=== PATIENT | female | born 1960 | race Hispanic/Latino ===

== ENCOUNTER 2020-03-09 06:37 | Inpatient (IN) | payer MEDICARE ==
[2020-03-10] MEDS ORDERED: DULOXETINE HCL 60 MG PO SCH (10:30)
[2020-03-10] MEDS: LITHIUM CARBONATE 300 MG CAP PO SCH ×2 (11:37→21:07)
[2020-03-10] MEDS: METOPROLOL SUCCINATE XL 25 MG TAB PO SCH (11:37)
[2020-03-10] MEDS: DULoxetine 30 MG CAP PO SCH (11:37)
[2020-03-10] MEDS: busPIRone 10 MG TAB PO SCH ×2 (11:37→21:07)
--- NOTE | 2020-03-10 14:18 | Consultation ---
History of Present Illness - Reason for Consult Consult date: 03/10/20 Reason for consult: MDD - History of Present Psychiatric Illness Kylah Macias is a 59y/o female patient who was admitted for SI. The patient is a/o x 3. She is calm and cooperative. She says she "has suicidal thoughts." She then says "but I wont to live." She says "I was depressed but I spoke with my mom." The patient denies hallucinations of any kind. PAST PSYCHIATRIC HISTORY Diagnoses: Bipolar Suicide attempts or Self-harm behavior: Once Prior psychiatric hospitalizations: Yes Substance Abuse history: Cocaine, thc Previous psychiatric medications tried: None reported Outpatient treatment: None reported PAST MEDICAL HISTORY: None reported Family Psychiatric History: None reported or documented SOCIAL HISTORY Marital Status: Single Living Arrangements: Lives with mom Employment Status: Unemployed Access to guns/weapons: None report Education: High school History of Abuse: Yes Legal History: None reported REVIEW OF SYSTEMS Constitutional: Negative for weight loss ENT: Negative for stridor Respiratory: Negative for cough or hemoptysis All other systems reviewed and are negative MENTAL STATUS EXAMINATION General Appearance and Behavior: Age appropriate, good hygiene, wearing appropriate clothes, calm and cooperative Cooperation: cooperative Psychomotor Behavior: Psychomotor normal Mood: depressed Affect and affective range: irritable Thought Process: logical Thought Content: None Speech: Normal rate, volume and rhythm Suicidal Ideation: Yes Homicidal Ideation: Denies HI Hallucinations: Denies Delusions: None elicited Impulse Control: Impaired Insight and Judgment: Limited insight and judgment Memory: Limited Attention: Limited Orientation: Alert, oriented Assessment and Plan (1)Major Depressive Disorder TREATMENT PLAN Patient admitted for inpatient psychiatric evaluation, medication adjustment and close monitoring The patient's behavior, mood, sleep and appetite will be closely monitored. Patient enrolled in individual and group therapeutic sessions and encouraged to attend. Patient provided with a safe and structured environment. Patient's physical health needs will be addressed by the Hospitalist. Hospitalist Consulted Labs including CBC, CMP, Lipid profile and Hemoglobin A1C levels ordered for baseline reference Started Home medications Social Assessment will be completed and the Skin Tanner will work with patient and family to ensure a suitable and safe disposition Medication adjustment will be made as clinically indicated Usual Wellness Restorationist/Preservation: - Start Trazodone 50 mg po QHS & 50 mg po QHS PRN between 10 PM & 2 AM for insomnia - Start Melatonin 5 mg po QHS to promote circadian rhythm - Start [place]-3 for brain health, reduce impulsivity, and as adjunctive tr eatment for mood disorder, continue upon discharge given overall benefits. - Start B1 prophylaxis with 200 mg po for 5 days The patient agreed on the treatment plan, understood the risk, benefit, al ternative treatment, potential consequence of no treatment, and gave informed consent. Estimated days: 5 Post hospital care: primary care provider, psychiatric provider Medications and Allergies Allergies Allergy/AdvReac Type Severity Reaction Status Date / Time No Known Drug Allergies Allergy Unknown Verified 03/09/20 22:55 Home Medications Medication Instructions Recorded Confirmed Last Taken Type Duloxetine HCl [Drizalma Sprinkle] 60 mg PO DAILY 03/09/20 03/09/20 Unknown History [place] Carbonate [Eskalith] 300 mg PO BID 03/09/20 03/09/20 Unknown History Metoprolol Xl [Metoprolol 25 mg PO QDAY 03/09/20 03/09/20 Unknown History SUCCINATE ER TAB] Paliperidone Palmitate [Invega 156 mg IM QMONTH 03/09/20 03/09/20 Unknown History [place]] busPIRone [Buspar] 10 mg PO BID 03/09/20 03/09/20 Unknown History traZODone [Desyrel] 100 mg PO QHS 03/09/20 03/09/20 Unknown History Active Meds: Active Medications Buspirone HCl (Buspar) 10 mg PO BID [facility] Last Admin: 03/10/20 11:37 Dose: 10 mg Documented by: Duloxetine HCl (Cymbalta) 60 mg PO QDAY [facility] Last Admin: 03/10/20 11:37 Dose: 60 mg Documented by: [place] Carbonate (Eskalith) 300 mg PO BID [facility] Last Admin: 03/10/20 11:37 Dose: 300 mg Documented by: Metoprolol Succinate (Metoprolol Xl) 25 mg PO QDAY [facility] Last Admin: 03/10/20 11:37 Dose: 25 mg Documented by: Nicotine (Habitrol) 21 mg TD QDAY [facility] Trazodone HCl (Desyrel) 100 mg PO QHS [facility] Mental Status Exam - Vital signs Last Vital Signs Temp 98.1 F 03/10/20 08:19 Pulse 81 03/10/20 11:37 Resp 18 03/10/20 08:19 BP 104/72 03/10/20 11:37 Pulse Ox 94 03/10/20 08:19 Results All other labs normal.
[2020-03-10] MEDS: NICOTINE 21 MG/24 HR PATCH TD SCH ×2 (15:55→15:59)
--- NOTE | 2020-03-10 17:25 | History and Physical Report ---
History of Present Illness Date of examination: 03/10/20 Date of admission: 03/09/20 09:53 Chief complaint: Patient states she feels depressed. Better now. History of present illness: 59-year-old female with a history of bipolar disorder, hypertension presents with depression suicidal thoughts after brother's illness. Patient stated initially she felt like she did not want to live anymore. Does not feel that way now. Patient denies any chest pain fever chills no nausea vomiting no cough no shortness of breath. Patient states she is in her normal state of health as far as her body. Has been sad in her mind. No recent attempts of suicide. Past History Past Medical History: hypertension. denies: anemia, CAD, cancer, ESRD, GERD, hepatitis, hyperthyroidism, migraines, pulmonary embolism, seizures, sarcoidosis Past Surgical History: No surgical history Social history: single, lives with family, other (Cocaine marijuana) Family history: no significant family history, hypertension Medications and Allergies Allergies Allergy/AdvReac Type Severity Reaction Status Date / Time No Known Drug Allergies Allergy Unknown Verified 03/09/20 22:55 Home Medications Medication Instructions Recorded Confirmed Last Taken Type Duloxetine HCl [Drizalma Sprinkle] 60 mg PO DAILY 03/09/20 03/09/20 Unknown History [place] Carbonate [Eskalith] 300 mg PO BID 03/09/20 03/09/20 Unknown History Metoprolol Xl [Metoprolol 25 mg PO QDAY 03/09/20 03/09/20 Unknown History SUCCINATE ER TAB] Paliperidone Palmitate [Invega 156 mg IM QMONTH 03/09/20 03/09/20 Unknown History [place]] busPIRone [Buspar] 10 mg PO BID 03/09/20 03/09/20 Unknown History traZODone [Desyrel] 100 mg PO QHS 03/09/20 03/09/20 Unknown History Active Meds: Active Medications Buspirone HCl (Buspar) 10 mg PO BID [facility] Last Admin: 03/10/20 11:37 Dose: 10 mg Documented by: Duloxetine HCl (Cymbalta) 60 mg PO QDAY [facility] Last Admin: 03/10/20 11:37 Dose: 60 mg Documented by: [place] Carbonate (Eskalith) 300 mg PO BID [facility] Last Admin: 03/10/20 11:37 Dose: 300 mg Documented by: Metoprolol Succinate (Metoprolol Xl) 25 mg PO QDAY [facility] Last Admin: 03/10/20 11:37 Dose: 25 mg Documented by: Nicotine (Habitrol) 21 mg TD QDAY [facility] Last Admin: 03/10/20 15:55 Dose: Not Given Documented by: Trazodone HCl (Desyrel) 100 mg PO QHS [facility] Review of Systems Constitutional: no fever, no anorexia, no lethargy, no poor appetite, no daytime sleepiness Ears, nose, mouth and throat: no tinnitis, no decreased hearing, no nasal discharge, no bleeding gums, no mouth pain, no sore throat, no swelling in mouth, no neck fullness/pressure Cardiovascular: no chest pain, no orthopnea, no rapid/irregular heart beat, no shortness of breath, no dyspnea on exertion, no claudication, no other Respiratory: no excessive sputum, no dyspnea on exertion, no pain on inspiration, no respiratory infections Gastrointestinal: no abdominal pain, no nausea, no diarrhea, no hematemesis, no belching, no excessive gas, no lactose intolerance, no other Genitourinary Female: no flank pain, no urinary frequency, no post void dribbling, no vaginal discharge Menstruation: no premenarcheal, no ammenorrhea on , no period spotting, no menses 8 or > days Musculoskeletal: no neck stiffness, no shooting arm pain, no low back pain, no muscle weakness, no limitation of motion, no loss of height, no arthritis Integumentary: no rash, no redness, no wounds, no lesions, no color changes Neurological: no weakness, no numbness, no seizures, no lack of coordination, no gait dysfunction, no double vision Psychiatric: suicidal ideation, depression, difficulties concentrating, sadness/tearfullness, no memory loss, no sleep disturbances, no disorientation, no hallucinations, no anxiety attacks Endocrine: no polyphagia, no low blood sugars, no recent glucocorticoid use Hematologic/Lymphatic: no easy bruising Exam - Constitutional Vitals: Temp Pulse Resp BP Pulse Ox 98.1 F 81 18 104/72 94 03/10/20 08:19 03/10/20 11:37 03/10/20 08:19 03/10/20 11:37 03/10/20 08:19 General appearance: Present: no acute distress, well-nourished - EENT Eyes: Present: PERRL ENT: hearing intact, clear oral mucosa - Neck Neck: Present: supple, normal ROM - Respiratory Respiratory effort: normal Respiratory: bilateral: CTA - Cardiovascular Heart Sounds: Present: S1 & S2. Absent: rub, click - Extremities Extremities: pulses symmetrical, No edema Peripheral Pulses: within normal limits - Abdominal General gastrointestinal: Present: soft, non-tender, non-distended, normal bowel sounds Female genitourinary: Present: normal - Integumentary Integumentary: Present: clear, warm, dry - Musculoskeletal Musculoskeletal: gait normal, strength equal bilaterally - Psychiatric Psychiatric: appropriate mood/affect, intact judgment & insight - Neurologic Neurologic: CNII-XII intact, moves all extremities Results [place]/IV: Voiding Method Toilet Assessment and Plan Advance Directives: No Plan of care discussed with patient/family: Yes - Patient Problems (1) Hypertension Current Visit: Yes Status: Acute Plan to address problem: Patient blood pressure appears to be optimally controlled without metoprolol now in fact it is on the low side 104/70. Will hold metoprolol at this time may reinitiate tomorrow if necessary. (2) Bipolar 1 disorder Current Visit: Yes Status: Acute Plan to address problem: Patient appears to have depression as well. Patient restarted back on antidepressants and medications for bipolar.
[2020-03-10] MEDS: traZODone 100 MG TAB PO SCH (21:07)
[2020-03-11 06:10] LABS: Basophils # (Auto) 0.1 K/mm3 (0.0-0.1); Basophils % (Auto) 1.2 % (0.0-1.8); Eosinophils # (Auto) 0.3 K/mm3 (0.0-0.4); Eosinophils % (Auto) 3.6 % (0.0-4.3); Hematocrit 41.3 % (30.3-42.9); Hemoglobin 13.7 gm/dl (10.1-14.3); Lymphocytes # (Auto) 2.1 K/mm3 (1.2-5.4); Lymphocytes % (Auto) 21.7 % (13.4-35.0); Mean Corpuscular HGB Conc 33 % (30-34); Mean Corpuscular Volume 89 fl (79-97); Monocytes # (Auto) 0.8 K/mm3 (0.0-0.8); Monocytes % (Auto) 8.3 % (0.0-7.3); Platelet Count 271 K/mm3 (140-440); Red Blood Count 4.65 M/mm3 (3.65-5.03)
[2020-03-11 06:31] LABS: Alanine Aminotransferase 16 units/L (7-56); Albumin 3.4 g/dL (3.9-5); Blood Urea Nitrogen 9 mg/dL (7-17); Chol/HDL Ratio 3.71 %; HDL Cholesterol 39 mg/dL (40-59); Hemolysis Index 6; LDL Cholesterol,Direct 99 mg/dL (50-130)
[2020-03-11 06:34] LABS: BUN/Creatinine Ratio 15
--- NOTE | 2020-03-11 07:55 | Progress Note ---
Subjective Date of service: 03/11/20 Principal diagnosis: Majoar Depressive Disorder Subjective Comment: During my interview with the patient today, she is sitting in the dayroom. She says she feels "slightly depressed, but better." The patient says she didn't sleep well because the water in her sink is running and keeping her up. She denies SI/HI, but has passive thoughts of dying. The patient says "I have thoughts of and dying but I don't think I will act on it." She says she hears "a voice telling her, "God, bless your heart." She says her father used to say that to her. Reason for continued inpatient treatment: The patient verbalizes depression, passive thoughts of dying and auditory hallucinations. REVIEW OF SYSTEMS Constitutional: Negative for weight loss ENT: Negative for stridor Respiratory: Negative for cough or hemoptysis All other systems reviewed and are negative MENTAL STATUS EXAMINATION General Appearance and Behavior: Age appropriate, good hygiene, wearing appropriate clothes, calm and cooperative Cooperation: cooperative Psychomotor Behavior: Psychomotor normal Mood: depressed, but better Affect and affective range: restricted Thought Process: logical Thought Content: None Speech: Normal rate, volume and rhythm Suicidal Ideation: Yes Homicidal Ideation: Denies HI Hallucinations: Auditory Delusions: None elicited Impulse Control: Impaired Insight and Judgment: Limited insight and judgment Memory: Limited Attention: Limited Orientation: Alert, oriented Assessment and Plan (1)Major Depressive Disorder TREATMENT PLAN Patient admitted for inpatient psychiatric evaluation, medication adjustment and close monitoring The patient's behavior, mood, sleep and appetite will be closely monitored. Patient enrolled in individual and group therapeutic sessions and encouraged to attend. Patient provided with a safe and structured environment. Patient's physical health needs will be addressed by the Hospitalist. Hospitalist Consulted Labs including CBC, CMP, Lipid profile and Hemoglobin A1C levels ordered for baseline reference Start Risperidone 0.25mg po BID Social Assessment will be completed and the Patternmaker Pressure Cast will work with patient and family to ensure a suitable and safe disposition Medication adjustment will be made as clinically indicated Usual Wellness Episcopal/Preservation: - Start Trazodone 50 mg po QHS & 50 mg po QHS PRN between 10 PM & 2 AM for insomnia - Start Melatonin 5 mg po QHS to promote circadian rhythm - Start [place]-3 for brain health, reduce impulsivity, and as adjunctive treatment for mood disorder, continue upon discharge given overall benefits. - Start B1 prophylaxis with 200 mg po for 5 days The patient agreed on the treatment plan, understood the risk, benefit, alternative treatment, potential consequence of no treatment, and gave informed consent. Estimated days: 4 Post hospital care: primary care provider, psychiatric provider Medications and Allergies Allergies Allergy/AdvReac Type Severity Reaction Status Date / Time No Known Drug Allergies Allergy Unknown Verified 03/09/20 22:55 Home Medications Medication Instructions Recorded Confirmed Last Taken Type Duloxetine HCl [Drizalma Sprinkle] 60 mg PO DAILY 03/09/20 03/09/20 Unknown History [place] Carbonate [Eskalith] 300 mg PO BID 03/09/20 03/09/20 Unknown History Metoprolol Xl [Metoprolol 25 mg PO QDAY 03/09/20 03/09/20 Unknown History SUCCINATE ER TAB] Paliperidone Palmitate [Invega 156 mg IM QMONTH 03/09/20 03/09/20 Unknown History [place]] busPIRone [Buspar] 10 mg PO BID 03/09/20 03/09/20 Unknown History traZODone [Desyrel] 100 mg PO QHS 03/09/20 03/09/20 Unknown History Active Meds: Active Medications Buspirone HCl (Buspar) 10 mg PO BID [facility] Last Admin: 03/10/20 21:07 Dose: 10 mg Documented by: Duloxetine HCl (Cymbalta) 60 mg PO QDAY [facility] Last Admin: 03/10/20 11:37 Dose: 60 mg Documented by: [place] Carbonate (Eskalith) 300 mg PO BID [facility] Last Admin: 03/10/20 21:07 Dose: 300 mg Documented by: Metoprolol Succinate (Metoprolol Xl) 25 mg PO QDAY [facility] Last Admin: 03/10/20 11:37 Dose: 25 mg Documented by: Nicotine (Habitrol) 21 mg TD QDAY [facility] Last Admin: 03/10/20 15:55 Dose: Not Given Documented by: Trazodone HCl (Desyrel) 100 mg PO QHS [facility] Last Admin: 03/10/20 21:07 Dose: 100 mg Documented by: Results - Results Labs/Vitals: Laboratory Last Values WBC 9.6 K/mm3 (4.5-11.0) 03/11/20 05:15 RBC 4.65 M/mm3 (3.65-5.03) 03/11/20 05:15 Hgb 13.7 gm/dl (10.1-14.3) 03/11/20 05:15 Hct 41.3 % (30.3-42.9) 03/11/20 05:15 MCV 89 fl (79-97) 03/11/20 05:15 MCH 29 pg (28-32) 03/11/20 05:15 MCHC 33 % (30-34) 03/11/20 05:15 RDW 14.0 % (13.2-15.2) 03/11/20 05:15 Plt Count 271 K/mm3 (140-440) 03/11/20 05:15 Lymph % (Auto) 21.7 % (13.4-35.0) 03/11/20 05:15 [place] % (Auto) 8.3 % (0.0-7.3) H 03/11/20 05:15 Eos % (Auto) 3.6 % (0.0-4.3) 03/11/20 05:15 Baso % (Auto) 1.2 % (0.0-1.8) 03/11/20 05:15 Lymph # (Auto) 2.1 K/mm3 (1.2-5.4) 03/11/20 05:15 [place] # (Auto) 0.8 K/mm3 (0.0-0.8) 03/11/20 05:15 Eos # (Auto) 0.3 K/mm3 (0.0-0.4) 03/11/20 05:15 Baso # (Auto) 0.1 K/mm3 (0.0-0.1) 03/11/20 05:15 Seg Neutrophils % 65.2 % (40.0-70.0) 03/11/20 05:15 Seg Neutrophils # 6.2 K/mm3 (1.8-7.7) 03/11/20 05:15 Sodium 136 mmol/L (137-145) L 03/11/20 05:15 Potassium 4.0 mmol/L (3.6-5.0) 03/11/20 05:15 Chloride 100.9 mmol/L (98-107) 03/11/20 05:15 Carbon Dioxide 27 mmol/L (22-30) 03/11/20 05:15 Anion Gap 12 mmol/L 03/11/20 05:15 BUN 9 mg/dL (7-17) 03/11/20 05:15 Creatinine 0.6 mg/dL (0.6-1.2) 03/11/20 05:15 Estimated GFR > 60 ml/min 03/11/20 05:15 BUN/Creatinine Ratio 15 % 03/11/20 05:15 Glucose 117 mg/dL (65-100) H 03/11/20 05:15 Hemoglobin A1c 6.2 % (4-6) H 03/11/20 05:15 Calcium 9.0 mg/dL (8.4-10.2) 03/11/20 05:15 Total Bilirubin 0.50 mg/dL (0.1-1.2) 03/11/20 05:15 AST 13 units/L (5-40) 03/11/20 05:15 ALT 16 units/L (7-56) 03/11/20 05:15 Alkaline Phosphatase 91 units/L (35-129) 03/11/20 05:15 Total Protein 6.7 g/dL (6.3-8.2) 03/11/20 05:15 Albumin 3.4 g/dL (3.9-5) L 03/11/20 05:15 Albumin/Globulin Ratio 1.0 % 03/11/20 05:15 Triglycerides 75 mg/dL (2-149) 03/11/20 05:15 Cholesterol 145 mg/dL (50-199) 03/11/20 05:15 LDL Cholesterol Direct 99 mg/dL (50-130) 03/11/20 05:15 HDL Cholesterol 39 mg/dL (40-59) L 03/11/20 05:15 Cholesterol/HDL Ratio 3.71 % 03/11/20 05:15 TSH 2.780 mlU/mL (0.270-4.200) 03/11/20 05:15 Last Vital Signs Temp 98.1 F 03/10/20 08:19 Pulse 81 03/10/20 11:37 Resp 18 03/10/20 08:19 BP 104/72 03/10/20 11:37 Pulse Ox 94 03/10/20 08:19
[2020-03-11] MEDS: DULoxetine 30 MG CAP PO SCH (09:12)
[2020-03-11] MEDS: risperiDONE 0.25 MG TAB PO SCH ×2 (09:13→21:31)
[2020-03-11] MEDS: LITHIUM CARBONATE 300 MG CAP PO SCH ×2 (09:13→21:31)
[2020-03-11] MEDS: METOPROLOL SUCCINATE XL 25 MG TAB PO SCH (09:13)
[2020-03-11] MEDS: busPIRone 10 MG TAB PO SCH ×2 (09:13→21:31)
[2020-03-11] MEDS: NICOTINE 21 MG/24 HR PATCH TD SCH (09:14)
[2020-03-11] MEDS: traZODone 100 MG TAB PO SCH (21:31)
--- NOTE | 2020-03-12 08:01 | Progress Note ---
Subjective Date of service: 03/12/20 Principal diagnosis: Majoar Depressive Disorder Subjective Comment: During my interview with the patient today, she is sitting in the dayroom. She says she feels "slightly depressed." The patient says she slept well and her appetite is good. She denies SI/HI, but states she had thoughts of dying yesterday. The patient staters it bothers her that her dad and he was trying to get everybody together. She says she hears "a voice telling her, "God, bless your heart." She says it sounds like her father. Reason for continued inpatient treatment: The patient verbalizes depression, passive thoughts of dying and auditory hallucinations. REVIEW OF SYSTEMS Constitutional: Negative for weight loss ENT: Negative for stridor Respiratory: Negative for cough or hemoptysis All other systems reviewed and are negative MENTAL STATUS EXAMINATION General Appearance and Behavior: Age appropriate, good hygiene, wearing appropriate clothes, calm and cooperative Cooperation: cooperative Psychomotor Behavior: Psychomotor normal Mood: depressed, but better Affect and affective range: restricted Thought Process: logical Thought Content: None Speech: Normal rate, volume and rhythm Suicidal Ideation: Yes Homicidal Ideation: Denies HI Hallucinations: Auditory Delusions: None elicited Impulse Control: Impaired Insight and Judgment: Limited insight and judgment Memory: Limited Attention: Limited Orientation: Alert, oriented Assessment and Plan (1)Major Depressive Disorder TREATMENT PLAN Patient admitted for inpatient psychiatric evaluation, medication adjustment and close monitoring The patient's behavior, mood, sleep and appetite will be closely monitored. Patient enrolled in individual and group therapeutic sessions and encouraged to attend. Patient provided with a safe and structured environment. Patient's physical health needs will be addressed by the Hospitalist. Hospitalist Consulted Labs including CBC, CMP, Lipid profile and Hemoglobin A1C levels ordered for baseline reference Increased Risperidone 0.5mg po BID Social Assessment will be completed and the [employer] [place] Radio Technician will work with patient and family to ensure a suitable and safe disposition Medication adjustment will be made as clinically indicated Usual Wellness Confucianism/Preservation: - Start Trazodone 50 mg po QHS & 50 mg po QHS PRN between 10 PM & 2 AM for insomnia - Start Melatonin 5 mg po QHS to promote circadian rhythm - Start [place]-3 for brain health, reduce impulsivity, and as adjunctive treatment for mood disorder, continue upon discharge given overall benefits. - Start B1 prophylaxis with 200 mg po for 5 days The patient agreed on the treatment plan, understood the risk, benefit, alternative treatment, potential consequence of no treatment, and gave informed consent. Estimated days: 4 Post hospital care: primary care provider, psychiatric provider Medications and Allergies Allergies Allergy/AdvReac Type Severity Reaction Status Date / Time No Known Drug Allergies Allergy Unknown Verified 03/09/20 22:55 Home Medications Medication Instructions Recorded Confirmed Last Taken Type Duloxetine HCl [Drizalma Sprinkle] 60 mg PO DAILY 03/09/20 03/09/20 Unknown History [place] Carbonate [Eskalith] 300 mg PO BID 03/09/20 03/09/20 Unknown History Metoprolol Xl [Metoprolol 25 mg PO QDAY 03/09/20 03/09/20 Unknown History SUCCINATE ER TAB] Paliperidone Palmitate [Invega 156 mg IM QMONTH 03/09/20 03/09/20 Unknown History [place]] busPIRone [Buspar] 10 mg PO BID 03/09/20 03/09/20 Unknown History traZODone [Desyrel] 100 mg PO QHS 03/09/20 03/09/20 Unknown History Active Meds: Active Medications Buspirone HCl (Buspar) 10 mg PO BID [facility] Last Admin: 03/11/20 21:31 Dose: 10 mg Documented by: Duloxetine HCl (Cymbalta) 60 mg PO QDAY [facility] Last Admin: 03/11/20 09:12 Dose: 60 mg Documented by: [place] Carbonate (Eskalith) 300 mg PO BID [facility] Last Admin: 03/11/20 21:31 Dose: 300 mg Documented by: Metoprolol Succinate (Metoprolol Xl) 25 mg PO QDAY [facility] Last Admin: 03/11/20 09:13 Dose: 25 mg Documented by: Nicotine (Habitrol) 21 mg TD QDAY [facility] Last Admin: 03/11/20 09:14 Dose: Not Given Documented by: Risperidone (Risperdal) 0.25 mg PO BID [facility] Last Admin: 03/11/20 21:31 Dose: 0.25 mg Documented by: Trazodone HCl (Desyrel) 100 mg PO QHS [facility] Last Admin: 03/11/20 21:31 Dose: 100 mg Documented by: Results - Results Labs/Vitals: Laboratory Last Values WBC 9.6 K/mm3 (4.5-11.0) 03/11/20 05:15 RBC 4.65 M/mm3 (3.65-5.03) 03/11/20 05:15 Hgb 13.7 gm/dl (10.1-14.3) 03/11/20 05:15 Hct 41.3 % (30.3-42.9) 03/11/20 05:15 MCV 89 fl (79-97) 03/11/20 05:15 MCH 29 pg (28-32) 03/11/20 05:15 MCHC 33 % (30-34) 03/11/20 05:15 RDW 14.0 % (13.2-15.2) 03/11/20 05:15 Plt Count 271 K/mm3 (140-440) 03/11/20 05:15 Lymph % (Auto) 21.7 % (13.4-35.0) 03/11/20 05:15 [place] % (Auto) 8.3 % (0.0-7.3) H 03/11/20 05:15 Eos % (Auto) 3.6 % (0.0-4.3) 03/11/20 05:15 Baso % (Auto) 1.2 % (0.0-1.8) 03/11/20 05:15 Lymph # (Auto) 2.1 K/mm3 (1.2-5.4) 03/11/20 05:15 [place] # (Auto) 0.8 K/mm3 (0.0-0.8) 03/11/20 05:15 Eos # (Auto) 0.3 K/mm3 (0.0-0.4) 03/11/20 05:15 Baso # (Auto) 0.1 K/mm3 (0.0-0.1) 03/11/20 05:15 Seg Neutrophils % 65.2 % (40.0-70.0) 03/11/20 05:15 Seg Neutrophils # 6.2 K/mm3 (1.8-7.7) 03/11/20 05:15 Sodium 136 mmol/L (137-145) L 03/11/20 05:15 Potassium 4.0 mmol/L (3.6-5.0) 03/11/20 05:15 Chloride 100.9 mmol/L (98-107) 03/11/20 05:15 Carbon Dioxide 27 mmol/L (22-30) 03/11/20 05:15 Anion Gap 12 mmol/L 03/11/20 05:15 BUN 9 mg/dL (7-17) 03/11/20 05:15 Creatinine 0.6 mg/dL (0.6-1.2) 03/11/20 05:15 Estimated GFR > 60 ml/min 03/11/20 05:15 BUN/Creatinine Ratio 15 % 03/11/20 05:15 Glucose 117 mg/dL (65-100) H 03/11/20 05:15 Hemoglobin A1c 6.2 % (4-6) H 03/11/20 05:15 Calcium 9.0 mg/dL (8.4-10.2) 03/11/20 05:15 Total Bilirubin 0.50 mg/dL (0.1-1.2) 03/11/20 05:15 AST 13 units/L (5-40) 03/11/20 05:15 ALT 16 units/L (7-56) 03/11/20 05:15 Alkaline Phosphatase 91 units/L (35-129) 03/11/20 05:15 Total Protein 6.7 g/dL (6.3-8.2) 03/11/20 05:15 Albumin 3.4 g/dL (3.9-5) L 03/11/20 05:15 Albumin/Globulin Ratio 1.0 % 03/11/20 05:15 Triglycerides 75 mg/dL (2-149) 03/11/20 05:15 Cholesterol 145 mg/dL (50-199) 03/11/20 05:15 LDL Cholesterol Direct 99 mg/dL (50-130) 03/11/20 05:15 HDL Cholesterol 39 mg/dL (40-59) L 03/11/20 05:15 Cholesterol/HDL Ratio 3.71 % 03/11/20 05:15 TSH 2.780 mlU/mL (0.270-4.200) 03/11/20 05:15 Last Vital Signs Temp 98.0 F 03/12/20 07:09 Pulse 63 03/12/20 07:09 Resp 16 03/12/20 07:09 BP 140/55 03/12/20 07:09 Pulse Ox 95 03/12/20 07:09
[2020-03-12] MEDS: DULoxetine 30 MG CAP PO SCH (09:58)
[2020-03-12] MEDS: LITHIUM CARBONATE 300 MG CAP PO SCH ×2 (09:58→21:33)
[2020-03-12] MEDS: busPIRone 10 MG TAB PO SCH ×2 (09:58→21:34)
[2020-03-12] MEDS: METOPROLOL SUCCINATE XL 25 MG TAB PO SCH (09:59)
[2020-03-12] MEDS: risperiDONE 0.25 MG TAB PO SCH ×2 (09:59→21:33)
[2020-03-12] MEDS: NICOTINE 21 MG/24 HR PATCH TD SCH ×2 (10:00→10:07)
[2020-03-12] MEDS: traZODone 100 MG TAB PO SCH (21:34)
--- NOTE | 2020-03-13 07:59 | Progress Note ---
Subjective Date of service: 03/13/20 Principal diagnosis: Majoar Depressive Disorder Subjective Comment: During my interview with the patient today, she is walking around. She says she's "doing much better." She denies SI/HI and feels like she's improved. She says she hears "a voice telling her, "God, bless your heart." She says it sounds like her father. Reason for continued inpatient treatment: The patient has improved significantly, but has auditory hallucinations of her father's voice. Will continue to treat and plan for a safe discharge. REVIEW OF SYSTEMS Constitutional: Negative for weight loss ENT: Negative for stridor Respiratory: Negative for cough or hemoptysis All other systems reviewed and are negative MENTAL STATUS EXAMINATION General Appearance and Behavior: Age appropriate, good hygiene, wearing appropriate clothes, calm and cooperative Cooperation: cooperative Psychomotor Behavior: Psychomotor normal Mood: "much better" Affect and affective range: Congruent with stated mood Thought Process: logical Thought Content: None Speech: Normal rate, volume and rhythm Suicidal Ideation: Denies Homicidal Ideation: Denies HI Hallucinations: Auditory Delusions: None elicited Impulse Control: Impaired Insight and Judgment: Limited insight and judgment Memory: Limited Attention: Limited Orientation: Alert, oriented Assessment and Plan (1)Major Depressive Disorder TREATMENT PLAN Patient admitted for inpatient psychiatric evaluation, medication adjustment and close monitoring The patient's behavior, mood, sleep and appetite will be closely monitored. Patient enrolled in individual and group therapeutic sessions and encouraged to attend. Patient provided with a safe and structured environment. Patient's physical health needs will be addressed by the Hospitalist. Hospitalist Consulted Labs including CBC, CMP, Lipid profile and Hemoglobin A1C levels ordered for baseline reference Increased Risperidone 0.5mg po BID yesterday No changes made today Social Assessment will be completed and the Backwinder will work with patient and family to ensure a suitable and safe disposition Medication adjustment will be made as clinically indicated Usual Wellness Tenriism/Preservation: - Start Trazodone 50 mg po QHS & 50 mg po QHS PRN between 10 PM & 2 AM for insomnia - Start Melatonin 5 mg po QHS to promote circadian rhythm - Start [place]-3 for brain health, reduce impulsivity, and as adjunctive treatment for mood disorder, continue upon discharge given overall benefits. - Start B1 prophylaxis with 200 mg po for 5 days The patient agreed on the treatment plan, understood the risk, benefit, alternative treatment, potential consequence of no treatment, and gave informed consent. Estimated days: 4 Post hospital care: primary care provider, psychiatric provider Medications and Allergies Allergies Allergy/AdvReac Type Severity Reaction Status Date / Time No Known Drug Allergies Allergy Unknown Verified 03/09/20 22:55 Home Medications Medication Instructions Recorded Confirmed Last Taken Type Duloxetine HCl [Drizalma Sprinkle] 60 mg PO DAILY 03/09/20 03/09/20 Unknown History [place] Carbonate [Eskalith] 300 mg PO BID 03/09/20 03/09/20 Unknown History Metoprolol Xl [Metoprolol 25 mg PO QDAY 03/09/20 03/09/20 Unknown History SUCCINATE ER TAB] Paliperidone Palmitate [Invega 156 mg IM QMONTH 03/09/20 03/09/20 Unknown History Sustenna] busPIRone [Buspar] 10 mg PO BID 03/09/20 03/09/20 Unknown History traZODone [Desyrel] 100 mg PO QHS 03/09/20 03/09/20 Unknown History Active Meds: Active Medications Buspirone HCl (Buspar) 10 mg PO BID [facility] Last Admin: 03/12/20 21:34 Dose: 10 mg Documented by: Duloxetine HCl (Cymbalta) 60 mg PO QDAY [facility] Last Admin: 03/12/20 09:58 Dose: 60 mg Documented by: [place] Carbonate (Eskalith) 300 mg PO BID [facility] Last Admin: 03/12/20 21:33 Dose: 300 mg Documented by: Metoprolol Succinate (Metoprolol Xl) 25 mg PO QDAY [facility] Last Admin: 03/12/20 09:59 Dose: 25 mg Documented by: Risperidone (Risperdal) 0.5 mg PO BID [facility] Last Admin: 03/12/20 21:33 Dose: 0.5 mg Documented by: Trazodone HCl (Desyrel) 100 mg PO QHS [facility] Last Admin: 03/12/20 21:34 Dose: 100 mg Documented by: Results - Results Labs/Vitals: Laboratory Last Values WBC 9.6 K/mm3 (4.5-11.0) 03/11/20 05:15 RBC 4.65 M/mm3 (3.65-5.03) 03/11/20 05:15 Hgb 13.7 gm/dl (10.1-14.3) 03/11/20 05:15 Hct 41.3 % (30.3-42.9) 03/11/20 05:15 MCV 89 fl (79-97) 03/11/20 05:15 MCH 29 pg (28-32) 03/11/20 05:15 MCHC 33 % (30-34) 03/11/20 05:15 RDW 14.0 % (13.2-15.2) 03/11/20 05:15 Plt Count 271 K/mm3 (140-440) 03/11/20 05:15 Lymph % (Auto) 21.7 % (13.4-35.0) 03/11/20 05:15 [place] % (Auto) 8.3 % (0.0-7.3) H 03/11/20 05:15 Eos % (Auto) 3.6 % (0.0-4.3) 03/11/20 05:15 Baso % (Auto) 1.2 % (0.0-1.8) 03/11/20 05:15 Lymph # (Auto) 2.1 K/mm3 (1.2-5.4) 03/11/20 05:15 [place] # (Auto) 0.8 K/mm3 (0.0-0.8) 03/11/20 05:15 Eos # (Auto) 0.3 K/mm3 (0.0-0.4) 03/11/20 05:15 Baso # (Auto) 0.1 K/mm3 (0.0-0.1) 03/11/20 05:15 Seg Neutrophils % 65.2 % (40.0-70.0) 03/11/20 05:15 Seg Neutrophils # 6.2 K/mm3 (1.8-7.7) 03/11/20 05:15 Sodium 136 mmol/L (137-145) L 03/11/20 05:15 Potassium 4.0 mmol/L (3.6-5.0) 03/11/20 05:15 Chloride 100.9 mmol/L (98-107) 03/11/20 05:15 Carbon Dioxide 27 mmol/L (22-30) 03/11/20 05:15 Anion Gap 12 mmol/L 03/11/20 05:15 BUN 9 mg/dL (7-17) 03/11/20 05:15 Creatinine 0.6 mg/dL (0.6-1.2) 03/11/20 05:15 Estimated GFR > 60 ml/min 03/11/20 05:15 BUN/Creatinine Ratio 15 % 03/11/20 05:15 Glucose 117 mg/dL (65-100) H 03/11/20 05:15 Hemoglobin A1c 6.2 % (4-6) H 03/11/20 05:15 Calcium 9.0 mg/dL (8.4-10.2) 03/11/20 05:15 Total Bilirubin 0.50 mg/dL (0.1-1.2) 03/11/20 05:15 AST 13 units/L (5-40) 03/11/20 05:15 ALT 16 units/L (7-56) 03/11/20 05:15 Alkaline Phosphatase 91 units/L (35-129) 03/11/20 05:15 Total Protein 6.7 g/dL (6.3-8.2) 03/11/20 05:15 Albumin 3.4 g/dL (3.9-5) L 03/11/20 05:15 Albumin/Globulin Ratio 1.0 % 03/11/20 05:15 Triglycerides 75 mg/dL (2-149) 03/11/20 05:15 Cholesterol 145 mg/dL (50-199) 03/11/20 05:15 LDL Cholesterol Direct 99 mg/dL (50-130) 03/11/20 05:15 HDL Cholesterol 39 mg/dL (40-59) L 03/11/20 05:15 Cholesterol/HDL Ratio 3.71 % 03/11/20 05:15 TSH 2.780 mlU/mL (0.270-4.200) 03/11/20 05:15 Last Vital Signs Temp 98.1 F 03/12/20 20:00 Pulse 54 L 03/12/20 20:00 Resp 16 03/12/20 20:00 BP 130/62 03/12/20 20:00 Pulse Ox 99 03/12/20 20:00
[2020-03-13] MEDS: busPIRone 10 MG TAB PO SCH ×2 (10:20→21:15)
[2020-03-13] MEDS: METOPROLOL SUCCINATE XL 25 MG TAB PO SCH (10:20)
[2020-03-13] MEDS: risperiDONE 0.25 MG TAB PO SCH ×2 (10:20→21:15)
[2020-03-13] MEDS: DULoxetine 30 MG CAP PO SCH (10:23)
[2020-03-13] MEDS: LITHIUM CARBONATE 300 MG CAP PO SCH ×2 (10:24→21:14)
[2020-03-13] MEDS: traZODone 100 MG TAB PO SCH (21:15)
--- NOTE | 2020-03-14 07:07 | Progress Note ---
Subjective Date of service: 03/14/20 Principal diagnosis: Majoar Depressive Disorder Subjective Comment: During my interview with the patient today, she is walking around. She says she's "doing much better." She denies SI/HI and feels like she's improved. She says she hears "a voice telling her, "God, bless your heart." She says it sounds like her father. Reason for continued inpatient treatment: The patient has improved significantly, but has auditory hallucinations of her father's voice. Will continue to treat and plan for a safe discharge. REVIEW OF SYSTEMS Constitutional: Negative for weight loss ENT: Negative for stridor Respiratory: Negative for cough or hemoptysis All other systems reviewed and are negative MENTAL STATUS EXAMINATION General Appearance and Behavior: Age appropriate, good hygiene, wearing appropriate clothes, calm and cooperative Cooperation: cooperative Psychomotor Behavior: Psychomotor normal Mood: "much better" Affect and affective range: Congruent with stated mood Thought Process: logical Thought Content: None Speech: Normal rate, volume and rhythm Suicidal Ideation: Denies Homicidal Ideation: Denies HI Hallucinations: Auditory Delusions: None elicited Impulse Control: Impaired Insight and Judgment: Limited insight and judgment Memory: Limited Attention: Limited Orientation: Alert, oriented Assessment and Plan (1)Major Depressive Disorder TREATMENT PLAN Patient admitted for inpatient psychiatric evaluation, medication adjustment and close monitoring The patient's behavior, mood, sleep and appetite will be closely monitored. Patient enrolled in individual and group therapeutic sessions and encouraged to attend. Patient provided with a safe and structured environment. Patient's physical health needs will be addressed by the Hospitalist. Hospitalist Consulted Labs including CBC, CMP, Lipid profile and Hemoglobin A1C levels ordered for baseline reference Increased Risperidone 0.5mg po BID yesterday No changes made today Social Assessment will be completed and the Police [employer] Commander will work with patient and family to ensure a suitable and safe disposition Medication adjustment will be made as clinically indicated Usual Wellness Mormon/Preservation: - Start Trazodone 50 mg po QHS & 50 mg po QHS PRN between 10 PM & 2 AM for insomnia - Start Melatonin 5 mg po QHS to promote circadian rhythm - Start [place]-3 for brain health, reduce impulsivity, and as adjunctive treatment for mood disorder, continue upon discharge given overall benefits. - Start B1 prophylaxis with 200 mg po for 5 days The patient agreed on the treatment plan, understood the risk, benefit, alternative treatment, potential consequence of no treatment, and gave informed consent. Estimated days: 4 Post hospital care: primary care provider, psychiatric provider Medications and Allergies Allergies Allergy/AdvReac Type Severity Reaction Status Date / Time No Known Drug Allergies Allergy Unknown Verified 03/09/20 22:55 Home Medications Medication Instructions Recorded Confirmed Last Taken Type Duloxetine HCl [Drizalma Sprinkle] 60 mg PO DAILY 03/09/20 03/09/20 Unknown History [place] Carbonate [Eskalith] 300 mg PO BID 03/09/20 03/09/20 Unknown History Metoprolol Xl [Metoprolol 25 mg PO QDAY 03/09/20 03/09/20 Unknown History SUCCINATE ER TAB] Paliperidone Palmitate [Invega 156 mg IM QMONTH 03/09/20 03/09/20 Unknown History Sustenna] busPIRone [Buspar] 10 mg PO BID 03/09/20 03/09/20 Unknown History traZODone [Desyrel] 100 mg PO QHS 03/09/20 03/09/20 Unknown History Active Meds: Active Medications Buspirone HCl (Buspar) 10 mg PO BID [facility] Last Admin: 03/13/20 21:15 Dose: 10 mg Documented by: Duloxetine HCl (Cymbalta) 60 mg PO QDAY [facility] Last Admin: 03/13/20 10:23 Dose: 60 mg Documented by: [place] Carbonate (Eskalith) 300 mg PO BID [facility] Last Admin: 03/13/20 21:14 Dose: 300 mg Documented by: Metoprolol Succinate (Metoprolol Xl) 25 mg PO QDAY [facility] Last Admin: 03/13/20 10:20 Dose: 25 mg Documented by: Risperidone (Risperdal) 0.5 mg PO BID [facility] Last Admin: 03/13/20 21:15 Dose: 0.5 mg Documented by: Trazodone HCl (Desyrel) 100 mg PO QHS [facility] Last Admin: 03/13/20 21:15 Dose: 100 mg Documented by: Results - Results Labs/Vitals: Laboratory Last Values WBC 9.6 K/mm3 (4.5-11.0) 03/11/20 05:15 RBC 4.65 M/mm3 (3.65-5.03) 03/11/20 05:15 Hgb 13.7 gm/dl (10.1-14.3) 03/11/20 05:15 Hct 41.3 % (30.3-42.9) 03/11/20 05:15 MCV 89 fl (79-97) 03/11/20 05:15 MCH 29 pg (28-32) 03/11/20 05:15 MCHC 33 % (30-34) 03/11/20 05:15 RDW 14.0 % (13.2-15.2) 03/11/20 05:15 Plt Count 271 K/mm3 (140-440) 03/11/20 05:15 Lymph % (Auto) 21.7 % (13.4-35.0) 03/11/20 05:15 [place] % (Auto) 8.3 % (0.0-7.3) H 03/11/20 05:15 Eos % (Auto) 3.6 % (0.0-4.3) 03/11/20 05:15 Baso % (Auto) 1.2 % (0.0-1.8) 03/11/20 05:15 Lymph # (Auto) 2.1 K/mm3 (1.2-5.4) 03/11/20 05:15 [place] # (Auto) 0.8 K/mm3 (0.0-0.8) 03/11/20 05:15 Eos # (Auto) 0.3 K/mm3 (0.0-0.4) 03/11/20 05:15 Baso # (Auto) 0.1 K/mm3 (0.0-0.1) 03/11/20 05:15 Seg Neutrophils % 65.2 % (40.0-70.0) 03/11/20 05:15 Seg Neutrophils # 6.2 K/mm3 (1.8-7.7) 03/11/20 05:15 Sodium 136 mmol/L (137-145) L 03/11/20 05:15 Potassium 4.0 mmol/L (3.6-5.0) 03/11/20 05:15 Chloride 100.9 mmol/L (98-107) 03/11/20 05:15 Carbon Dioxide 27 mmol/L (22-30) 03/11/20 05:15 Anion Gap 12 mmol/L 03/11/20 05:15 BUN 9 mg/dL (7-17) 03/11/20 05:15 Creatinine 0.6 mg/dL (0.6-1.2) 03/11/20 05:15 Estimated GFR > 60 ml/min 03/11/20 05:15 BUN/Creatinine Ratio 15 % 03/11/20 05:15 Glucose 117 mg/dL (65-100) H 03/11/20 05:15 Hemoglobin A1c 6.2 % (4-6) H 03/11/20 05:15 Calcium 9.0 mg/dL (8.4-10.2) 03/11/20 05:15 Total Bilirubin 0.50 mg/dL (0.1-1.2) 03/11/20 05:15 AST 13 units/L (5-40) 03/11/20 05:15 ALT 16 units/L (7-56) 03/11/20 05:15 Alkaline Phosphatase 91 units/L (35-129) 03/11/20 05:15 Total Protein 6.7 g/dL (6.3-8.2) 03/11/20 05:15 Albumin 3.4 g/dL (3.9-5) L 03/11/20 05:15 Albumin/Globulin Ratio 1.0 % 03/11/20 05:15 Triglycerides 75 mg/dL (2-149) 03/11/20 05:15 Cholesterol 145 mg/dL (50-199) 03/11/20 05:15 LDL Cholesterol Direct 99 mg/dL (50-130) 03/11/20 05:15 HDL Cholesterol 39 mg/dL (40-59) L 03/11/20 05:15 Cholesterol/HDL Ratio 3.71 % 03/11/20 05:15 TSH 2.780 mlU/mL (0.270-4.200) 03/11/20 05:15 Last Vital Signs Temp 98.9 F 03/13/20 21:24 Pulse 57 L 03/13/20 21:24 Resp 18 03/13/20 21:24 BP 117/72 03/13/20 21:24 Pulse Ox 98 03/13/20 21:24
--- NOTE | 2020-03-14 07:16 | Discharge Summary ---
Providers - Providers Date of Admission: 03/09/20 09:53 Date of discharge: 03/14/20 Attending physician: KIRT FUNG MD 03/09/20 09:53 Consult to Physician [CONS] Routine Comment: Consulting Provider: MARGA HELMS Physician Instructions: Reason For Exam: Med management Primary care physician: BULLDOZER MECHANIC Hospitalization Reason for admission: depression Admitting Diagnosis: F33.1 - MAJOR DEPRESSIVE DISORDER, RECURRENT, MODERATE Hospital course: The patient was provided inpatient psychiatric treatment with safe and supportive care, medication adjustment, adverse effect monitoring, medical evaluations, medical treatments, assessment and psycho-education. The patient's mood, cognition, behavior, moral support are improved and stabilized. St the time of discharge, the patient had no endangering behavior and no debilitating adverse effects. The patient agreed on potential consequences of no treatment and gave informed consent. Disposition: TO HOME OR SELFCARE Time spent for discharge: 35 Allergies/Adverse Reactions: Allergies No Known Drug Allergies Allergy (Verified 03/09/20 22:55) Unknown Vital Signs: Last Vital Signs Temp 98.9 F 03/13/20 21:24 Pulse 57 L 03/13/20 21:24 Resp 18 03/13/20 21:24 BP 117/72 03/13/20 21:24 Pulse Ox 98 03/13/20 21:24 Last Lab: Laboratory Last Values WBC 9.6 K/mm3 (4.5-11.0) 03/11/20 05:15 RBC 4.65 M/mm3 (3.65-5.03) 03/11/20 05:15 Hgb 13.7 gm/dl (10.1-14.3) 03/11/20 05:15 Hct 41.3 % (30.3-42.9) 03/11/20 05:15 MCV 89 fl (79-97) 03/11/20 05:15 MCH 29 pg (28-32) 03/11/20 05:15 MCHC 33 % (30-34) 03/11/20 05:15 RDW 14.0 % (13.2-15.2) 03/11/20 05:15 Plt Count 271 K/mm3 (140-440) 03/11/20 05:15 Lymph % (Auto) 21.7 % (13.4-35.0) 03/11/20 05:15 [place] % (Auto) 8.3 % (0.0-7.3) H 03/11/20 05:15 Eos % (Auto) 3.6 % (0.0-4.3) 03/11/20 05:15 Baso % (Auto) 1.2 % (0.0-1.8) 03/11/20 05:15 Lymph # (Auto) 2.1 K/mm3 (1.2-5.4) 03/11/20 05:15 [place] # (Auto) 0.8 K/mm3 (0.0-0.8) 03/11/20 05:15 Eos # (Auto) 0.3 K/mm3 (0.0-0.4) 03/11/20 05:15 Baso # (Auto) 0.1 K/mm3 (0.0-0.1) 03/11/20 05:15 Seg Neutrophils % 65.2 % (40.0-70.0) 03/11/20 05:15 Seg Neutrophils # 6.2 K/mm3 (1.8-7.7) 03/11/20 05:15 Sodium 136 mmol/L (137-145) L 03/11/20 05:15 Potassium 4.0 mmol/L (3.6-5.0) 03/11/20 05:15 Chloride 100.9 mmol/L (98-107) 03/11/20 05:15 Carbon Dioxide 27 mmol/L (22-30) 03/11/20 05:15 Anion Gap 12 mmol/L 03/11/20 05:15 BUN 9 mg/dL (7-17) 03/11/20 05:15 Creatinine 0.6 mg/dL (0.6-1.2) 03/11/20 05:15 Estimated GFR > 60 ml/min 03/11/20 05:15 BUN/Creatinine Ratio 15 % 03/11/20 05:15 Glucose 117 mg/dL (65-100) H 03/11/20 05:15 Hemoglobin A1c 6.2 % (4-6) H 03/11/20 05:15 Calcium 9.0 mg/dL (8.4-10.2) 03/11/20 05:15 Total Bilirubin 0.50 mg/dL (0.1-1.2) 03/11/20 05:15 AST 13 units/L (5-40) 03/11/20 05:15 ALT 16 units/L (7-56) 03/11/20 05:15 Alkaline Phosphatase 91 units/L (35-129) 03/11/20 05:15 Total Protein 6.7 g/dL (6.3-8.2) 03/11/20 05:15 Albumin 3.4 g/dL (3.9-5) L 03/11/20 05:15 Albumin/Globulin Ratio 1.0 % 03/11/20 05:15 Triglycerides 75 mg/dL (2-149) 03/11/20 05:15 Cholesterol 145 mg/dL (50-199) 03/11/20 05:15 LDL Cholesterol Direct 99 mg/dL (50-130) 03/11/20 05:15 HDL Cholesterol 39 mg/dL (40-59) L 03/11/20 05:15 Cholesterol/HDL Ratio 3.71 % 03/11/20 05:15 TSH 2.780 mlU/mL (0.270-4.200) 03/11/20 05:15 Core Measure Documentation - Palliative Care Palliative Care/ Comfort Measures: Not Applicable - Core Measures Any of the following diagnoses?: none Exam - Constitutional Vitals: Temp Pulse Resp BP Pulse Ox 98.9 F 57 L 18 117/72 98 03/13/20 21:24 03/13/20 21:24 03/13/20 21:24 03/13/20 21:24 03/13/20 21:24 General appearance: Present: no acute distress - EENT Eyes: Present: PERRL, EOM intact ENT: hearing intact, clear oral mucosa - Neck Neck: Present: supple, normal ROM - Respiratory Respiratory effort: normal Plan Activity: advance as tolerated Weight Bearing Status: Weight Bear as Tolerated Care Plan Goals: Maintain good and stable mental health Plan of Treatment: The patient should be compliant with medications, not to use drugs, and not to drink alcohol. The patient understands that if suicidal ideas, homicidal ideas or any endangering feeling arise, the patient should seek assistance including, but not limited to crisis hotline, and emergency room. Health Concerns: HTN Assessment: MDD During my exam today the patient was calm, and cooperative, denied SI/HI. The patient states today is a bid day for her family and her mother is expecting her home for [employer]. Follow up with: PRIMARY CARE, [Primary Care Provider] - 7 Days Prescriptions: risperiDONE [RisperDAL] 0.5 mg PO BID #60 tablet
[2020-03-14 08:48] VITALS: BP 133/65
[2020-03-14] MEDS: LITHIUM CARBONATE 300 MG CAP PO SCH (09:20)
[2020-03-14] MEDS: busPIRone 10 MG TAB PO SCH (09:20)
[2020-03-14] MEDS: risperiDONE 0.25 MG TAB PO SCH (09:20)
[2020-03-14] MEDS: DULoxetine 30 MG CAP PO SCH (09:20)
[2020-03-14] MEDS: METOPROLOL SUCCINATE XL 25 MG TAB PO SCH (09:21)
== END 2020-03-14 17:42 | disposition home or self-care (01) | DRG 885 ==
LOC: 3A 06:37 → UNDOADMIN 06:37 → 5A 09:53
PROVIDERS: ADMIT Psychiatry & Neurology Psychiatry; ATTEND Psychiatry & Neurology Psychiatry
DX: F31.9 Bipolar disorder, unspecified (principal); I10 Essential (primary) hypertension; F14.10 Cocaine abuse, uncomplicated; Z56.0 Unemployment, unspecified; Z79.899 Other long term (current) drug therapy
CPT/HCPCS: 36415; 80053; 80061; 83036; 84443; 85025; G0378

== ENCOUNTER 2020-11-30 15:35 | Emergency (ER) | payer MEDICARE ==
--- NOTE | 2020-12-02 03:47 | Emergency Department Report ---
ED General Adult HPI - General Chief complaint: Pain General Stated complaint: HEAT EXHAUSTION Time Seen by Provider: 12/02/20 03:40 Source: patient Mode of arrival: Ambulatory Limitations: No Limitations - History of Present Illness Initial comments: 60-year-old female, history of bipolar disorder, presents to ED for evaluation. Patient has been in the waiting room for 36 hours. When I asked patient why she is here, she states "I think I have strep throat." Patient only complaining of a sore throat that started 6 hours ago. She denies any other symptoms. Patient reports she received the second dose of her Covid vaccine in August 2020. Initial EMS report states that patient was transported for possible heat exhaustion. Patient had been outside all day. She was found standing outside of a gas station. Patient apparently reported that she was out in the heat because she had been kicked out of [place]. Patient denies any dizziness or l ightheadedness at this time. Triage note apparently states that patient was given a breakfast tray yesterday morning. Location: mouth Quality: sharp Improves with: none Worsens with: other (Swallowing) Associated Symptoms: denies other symptoms Treatments Prior to Arrival: none - Related Data Home Medications Medication Instructions Recorded Confirmed Last Taken Duloxetine HCl [Drizalma Sprinkle] 60 mg PO DAILY 03/09/20 03/09/20 Unknown [place] Carbonate [Eskalith] 300 mg PO BID 03/09/20 03/09/20 Unknown Metoprolol Xl [Metoprolol 25 mg PO QDAY 03/09/20 03/09/20 Unknown SUCCINATE ER TAB] Paliperidone Palmitate [Invega 156 mg IM QMONTH 03/09/20 03/09/20 Unknown Sustenna] busPIRone [Buspar] 10 mg PO BID 03/09/20 03/09/20 Unknown traZODone [Desyrel] 100 mg PO QHS 03/09/20 03/09/20 Unknown Previous Rx's Medication Instructions Recorded Last Taken Type risperiDONE [RisperDAL] 0.5 mg PO BID #60 tablet 03/14/20 Unknown Rx Allergies Allergy/AdvReac Type Severity Reaction Status Date / Time No Known Drug Allergies Allergy Unknown Verified 03/09/20 22:55 ED Review of Systems ROS: Stated complaint: HEAT EXHAUSTION Other details as noted in HPI Comment: All other systems reviewed and negative ENT: throat pain Respiratory: denies: cough, shortness of breath ED Past Medical Hx - Past Medical History Previous Medical History?: Yes Hx Congestive Heart Failure: Yes Hx Diabetes: No Hx Renal Disease: No Hx Arthritis: No Hx Seizures: No Hx Asthma: Yes Hx COPD: Yes Hx Dementia: No - Surgical History Past Surgical History?: No Hx Cholecystectomy: No Hx Appendectomy: No - Social History Smoking Status: Current Every Day Smoker - Medications Home Medications: Home Medications Medication Instructions Recorded Confirmed Last Taken Type Duloxetine HCl [Drizalma Sprinkle] 60 mg PO DAILY 03/09/20 03/09/20 Unknown History [place] Carbonate [Eskalith] 300 mg PO BID 03/09/20 03/09/20 Unknown History Metoprolol Xl [Metoprolol 25 mg PO QDAY 03/09/20 03/09/20 Unknown History SUCCINATE ER TAB] Paliperidone Palmitate [Invega 156 mg IM QMONTH 03/09/20 03/09/20 Unknown History Sustenna] busPIRone [Buspar] 10 mg PO BID 03/09/20 03/09/20 Unknown History traZODone [Desyrel] 100 mg PO QHS 03/09/20 03/09/20 Unknown History risperiDONE [RisperDAL] 0.5 mg PO BID #60 tablet 03/14/20 Unknown Rx ED Physical Exam - General Limitations: No Limitations General appearance: alert, in no apparent distress - Head Head exam: Present: atraumatic, normocephalic - Eye Eye exam: Present: normal appearance, EOMI - ENT ENT exam: Present: normal orophraynx, mucous membranes moist - Neck Neck exam: Present: normal inspection - Respiratory Respiratory exam: Present: normal lung sounds bilaterally. Absent: respiratory distress - Cardiovascular Cardiovascular Exam: Present: regular rate, normal rhythm - GI/Abdominal GI/Abdominal exam: Present: soft. Absent: distended, tenderness - Extremities Exam Extremities exam: Present: normal inspection - Neurological Exam Neurological exam: Present: alert, oriented X3 - Psychiatric Psychiatric exam: Present: normal affect, normal mood - Skin Skin exam: Present: warm, dry, intact, normal color ED Course Vital Signs 11/30/20 12/01/20 12/02/20 17:49 04:13 03:35 Temperature 97.9 F 98.4 F 98 F Pulse Rate 89 66 89 Respiratory 20 16 18 Rate Blood Pressure 136/92 Blood Pressure 125/84 [Left] O2 Sat by Pulse 97 97 98 Oximetry ED Medical Decision Making - Medical Decision Making Rapid strep negative. Patient given list of homeless shelters. She will be discharged at this time. Return precautions given. Critical care attestation.: If time is entered above; I have spent that time in minutes in the direct care of this critically ill patient, excluding procedure time. ED Disposition Clinical Impression: Sore throat Disposition: HOME / SELF CARE / HOMELESS Is pt being admited?: No Condition: Stable Instructions: Sore Throat, [id number] Additional Instructions: Your strep test was negative. You should obtain outpatient COVID-19 testing to rule out COVID infection. Referrals: PRIMARY CARE [Primary Care Provider] - 3-5 Days [facility] [Provider Group] - 3-5 Days Time of Disposition: 04:18
[2020-12-02 03:52] VITALS: BP 125/84
== END 2020-12-02 05:28 | disposition home or self-care (01) ==
LOC: ED 15:35
DX: J02.9 Acute pharyngitis, unspecified (principal); J45.909 Unspecified asthma, uncomplicated; I50.9 Heart failure, unspecified
CPT/HCPCS: 87116; 87430; 99282; 99283

== ENCOUNTER 2020-12-26 05:37 | Inpatient (IN) | payer MEDICARE ==
[2020-12-26] MEDS: POTASSIUM CHLORIDE ER 20 MEQ TAB PO SCH ×2 (21:05→22:17)
[2020-12-26] MEDS: risperiDONE 1 MG TAB PO SCH (21:05)
[2020-12-26] MEDS: traZODone 100 MG TAB PO SCH (21:05)
[2020-12-26] MEDS: metFORMIN 500 MG TAB PO SCH (21:05)
[2020-12-26] MEDS: MIRTAZAPINE 30 MG TAB PO SCH (21:05)
[2020-12-26] MEDS: LITHIUM CARBONATE 300 MG CAP PO SCH (21:05)
[2020-12-26 23:28] LABS: Basophils # (Auto) 0.1 K/mm3 (0.0-0.1); Basophils % (Auto) 0.8 % (0.0-1.8); Eosinophils # (Auto) 0.4 K/mm3 (0.0-0.4); Eosinophils % (Auto) 4.8 % (0.0-4.3); Lymphocytes # (Auto) 2.2 K/mm3 (1.2-5.4); Lymphocytes % (Auto) 25.5 % (13.4-35.0); Mean Corpuscular HGB Conc 33 % (30-34); Mean Corpuscular Volume 89 fl (79-97); Monocytes # (Auto) 0.8 K/mm3 (0.0-0.8); Monocytes % (Auto) 9.1 % (0.0-7.3); Platelet Count 253 K/mm3 (140-440); Red Blood Count 4.39 M/mm3 (3.65-5.03); Red Cell Distribution Width 13.7 % (13.2-15.2)
[2020-12-26 23:52] LABS: Hepatitis C Virus Antibody Non-Reactive (NonReactive)
[2020-12-26 23:54] LABS: Hepatitis B Surface Antigen Nonreactive (Negative)
[2020-12-27 01:14] LABS: Alanine Aminotransferase 24 units/L (7-56); Albumin 3.3 g/dL (3.9-5); Blood Urea Nitrogen 9 mg/dL (7-17); Calcium 8.8 mg/dL (8.4-10.2); Hemolysis Index 1
[2020-12-27 01:16] LABS: BUN/Creatinine Ratio 13
[2020-12-27 03:34] LABS: Chol/HDL Ratio 3.38 %; HDL Cholesterol 36 mg/dL (40-59); LDL Cholesterol,Direct 78 mg/dL (50-130)
[2020-12-27] MEDS: metFORMIN 500 MG TAB PO SCH ×2 (09:05→17:12)
[2020-12-27] MEDS ORDERED: METOPROLOL SUCCINATE XL 25 MG TAB PO SCH (10:00)
[2020-12-27] MEDS ORDERED: TRIAMTER/HCTZ 37.5-25 MG TAB PO SCH (10:00)
[2020-12-27] MEDS ORDERED: NON-FORMULARY EACH (Duloxetine Hcl [Drizalma Sprinkle] 60 MG Cap.Dr.Spr) PO SCH (10:00)
[2020-12-27] MEDS ORDERED: glipiZIDE 10 MG TAB PO SCH (10:00)
--- NOTE | 2020-12-27 10:07 | History and Physical Report ---
GP History & Physical - History of Present Illness Date of admission: 12/26/20 Date of Examination: 12/27/20 Reason for Admission: Danger to self History of Present Illness: Blue Kee is a 60y/o female patient today. She is a/o x 3. The patient says she is depressed. She says she is suicidal and homeless. The patient says but "my main problem is being homeless. My mother put me out." The patient verbalizes heaing voices of her father saying "God bless your heart." She denies illicit drug use, alcohol or nicotine. The patient says she has a history of bipolar and has been taking her medications. Staff says the patient is easily irritable and provoking other patients. PAST PSYCHIATRIC HISTORY Diagnoses: Bipolar Suicide attempts or Self-harm behavior: Once Prior psychiatric hospitalizations: Yes Substance Abuse history: Cocaine, thc Previous psychiatric medications tried: None reported Outpatient treatment: None reported PAST MEDICAL HISTORY: None reported Family Psychiatric History: None reported or documented SOCIAL HISTORY Marital Status: Single Living Arrangements: Homeless Employment Status: Unemployed Access to guns/weapons: None report Education: High school History of Abuse: Yes Legal History: None reported REVIEW OF SYSTEMS Constitutional: Negative for weight loss ENT: Negative for stridor Respiratory: Negative for cough or hemoptysis All other systems reviewed and are negative MENTAL STATUS EXAMINATION General Appearance and Behavior: Age appropriate, good hygiene, wearing appropriate clothes, calm and cooperative Cooperation: cooperative Psychomotor Behavior: Psychomotor normal Mood: depressed Affect and affective range: irritable Thought Process: logical Thought Content: None Speech: Normal rate, volume and rhythm Suicidal Ideation: Yes Homicidal Ideation: Denies HI Hallucinations: Denies Delusions: None elicited Impulse Control: Impaired Insight and Judgment: Limited insight and judgment Memory: Limited Attention: Limited Orientation: Alert, oriented Assessment and Plan (1)Major Depressive Disorder TREATMENT PLAN Patient admitted for inpatient psychiatric evaluation, medication adjustment and close monitoring The patient's behavior, mood, sleep and appetite will be closely monitored. Patient enrolled in individual and group therapeutic sessions and encouraged to attend. Patient provided with a safe and structured environment. Patient's physical health needs will be addressed by the Hospitalist. Hospitalist Consulted Labs including CBC, CMP, Lipid profile and Hemoglobin A1C levels ordered for baseline reference Started Home medications Social Assessment will be completed and the Sales And Marketing Coordinator will work with patient and family to ensure a suitable and safe disposition Medication adjustment will be made as clinically indicated Usual Wellness Uatsdin/Preservation: - Start Trazodone 50 mg po QHS & 50 mg po QHS PRN between 10 PM & 2 AM for insomnia - Start Melatonin 5 mg po QHS to promote circadian rhythm - Start [place]-3 for brain health, reduce impulsivity, and as adjunctive treatment for mood disorder, continue upon discharge given overall benefits. - Start B1 prophylaxis with 200 mg po for 5 days The patient agreed on the treatment plan, understood the risk, benefit, alternative treatment, potential consequence of no treatment, and gave informed consent. Estimated days: 6 Post hospital care: primary care provider, psychiatric provider Legal Status: Voluntary Reaction to Hospitalization: Accepting Medications and Allergies Allergies Allergy/AdvReac Type Severity Reaction Status Date / Time No Known Drug Allergies Allergy Unknown Verified 03/09/20 22:55 Home Medications Medication Instructions Recorded Confirmed Last Taken Type Duloxetine HCl [Drizalma Sprinkle] 60 mg PO DAILY 03/09/20 12/26/20 Unknown History [place] Carbonate [Eskalith] 300 mg PO BID 03/09/20 12/26/20 Unknown History Metoprolol Xl [Metoprolol 25 mg PO QDAY 03/09/20 12/26/20 Unknown History SUCCINATE ER TAB] Paliperidone Palmitate [Invega 156 mg IM QMONTH 03/09/20 12/26/20 Unknown History Sustenna] traZODone [Desyrel] 100 mg PO QHS 03/09/20 12/26/20 Unknown History Albuterol Sulfate [Proventil Hfa] 8.5 gm IH Q4HR PRN 12/26/20 12/26/20 Unknown History Fluticasone Propion/Salmeterol 1 each IH DAILY 12/26/20 12/26/20 Unknown History [Fluticasone-Salmeterol 250-50] Furosemide [Lasix] 10 mg PO QDAY 12/26/20 12/26/20 Unknown History Meclizine HCl [Motion Sickness] 25 mg PO TID PRN 12/26/20 12/26/20 Unknown History Mirtazapine [Remeron] 30 mg PO HS 12/26/20 12/26/20 Unknown History Montelukast [Singulair] 10 mg PO DAILY 12/26/20 12/26/20 Unknown History Potassium Chloride [K-Dur] 20 meq PO BID 12/26/20 12/26/20 Unknown History Triamterene/Hydrochlorothiazid 1 tab PO DAILY 12/26/20 12/26/20 Unknown History [Triamterene-Hctz 37.5-25 mg Tb] Venlafaxine HCl [Venlafaxine HCl 150 mg PO DAILY 12/26/20 12/26/20 Unknown History ER] glipiZIDE [Glucotrol] 10 mg PO DAILY 12/26/20 12/26/20 Unknown History hydrOXYzine PAMOATE [Vistaril] 25 mg PO DAILY 12/26/20 12/26/20 Unknown History metFORMIN [Glucophage] 500 mg PO BID 12/26/20 12/26/20 Unknown History risperiDONE [RisperDAL] 1 mg PO BID 12/26/20 12/26/20 Unknown History Active Meds: Active Medications Arformoterol Tartrate (Arformoterol 15 Mcg/2 Ml Nebu) 15 mcg IH Q12HRT [facility] Budesonide (Budesonide 0.5 Mg/2 Ml Nebu) 0.5 mg IH Q12HRT [facility] Duloxetine HCl (Duloxetine 30 Mg Cap) 60 mg PO DAILY [facility] Furosemide (Furosemide 20 Mg Tab) 10 mg PO QDAY [facility] Glipizide (Glipizide 10 Mg Tab) 10 mg PO DAILY [facility] [place] Carbonate ([place] Carbonate 300 Mg Cap) 300 mg PO BID [facility] Last Admin: 12/26/20 21:05 Dose: 300 mg Documented by: Meclizine HCl (Meclizine 25 Mg Tab) 25 mg PO TID PRN PRN Reason: dizziness Metformin HCl (Metformin 500 Mg Tab) 500 mg PO BIDDIAB [facility] Last Admin: 12/26/20 21:05 Dose: 500 mg Documented by: Metoprolol Succinate (Metoprolol Succinate Xl 25 Mg Tab) 25 mg PO QDAY [facility] Mirtazapine (Mirtazapine 30 Mg Tab) 30 mg PO HS [facility] Last Admin: 12/26/20 21:05 Dose: 30 mg Documented by: Montelukast Sodium (Montelukast 10 Mg Tab) 10 mg PO DAILY [facility] Potassium Chloride (Potassium Chloride Er 20 Meq Tab) 20 meq PO BID [facility] Last Admin: 12/26/20 22:17 Dose: Not Given Documented by: Risperidone (Risperidone 1 Mg Tab) 1 mg PO BID [facility] Last Admin: 12/26/20 21:05 Dose: 1 mg Documented by: Trazodone HCl (Trazodone 100 Mg Tab) 100 mg PO QHS [facility] Last Admin: 12/26/20 21:05 Dose: 100 mg Documented by: Triamterene/Hydrochlorothiazide (Triamter/Hctz 37.5-25 Mg Tab) 1 each PO DAILY [facility] Results - Results Labs/Vitals: Laboratory Last Values WBC 8.8 K/mm3 (4.5-11.0) 12/26/20 23:10 RBC 4.39 M/mm3 (3.65-5.03) 12/26/20 23:10 Hgb 13.0 gm/dl (10.1-14.3) 12/26/20 23:10 Hct 39.0 % (30.3-42.9) 12/26/20 23:10 MCV 89 fl (79-97) 12/26/20 23:10 MCH 30 pg (28-32) 12/26/20 23:10 MCHC 33 % (30-34) 12/26/20 23:10 RDW 13.7 % (13.2-15.2) 12/26/20 23:10 Plt Count 253 K/mm3 (140-440) 12/26/20 23:10 Lymph % (Auto) 25.5 % (13.4-35.0) 12/26/20 23:10 [place] % (Auto) 9.1 % (0.0-7.3) H 12/26/20 23:10 Eos % (Auto) 4.8 % (0.0-4.3) H 12/26/20 23:10 Baso % (Auto) 0.8 % (0.0-1.8) 12/26/20 23:10 Lymph # (Auto) 2.2 K/mm3 (1.2-5.4) 12/26/20 23:10 [place] # (Auto) 0.8 K/mm3 (0.0-0.8) 12/26/20 23:10 Eos # (Auto) 0.4 K/mm3 (0.0-0.4) 12/26/20 23:10 Baso # (Auto) 0.1 K/mm3 (0.0-0.1) 12/26/20 23:10 Seg Neutrophils % 59.8 % (40.0-70.0) 12/26/20 23:10 Seg Neutrophils # 5.2 K/mm3 (1.8-7.7) 12/26/20 23:10 Sodium 141 mmol/L (137-145) 12/26/20 23:10 Potassium 3.7 mmol/L (3.6-5.0) 12/26/20 23:10 Chloride 104.2 mmol/L (98-107) 12/26/20 23:10 Carbon Dioxide 30 mmol/L (22-30) 12/26/20 23:10 Anion Gap 11 mmol/L 12/26/20 23:10 BUN 9 mg/dL (7-17) 12/26/20 23:10 Creatinine 0.7 mg/dL (0.6-1.2) 12/26/20 23:10 Estimated GFR > 60 ml/min 12/26/20 23:10 BUN/Creatinine Ratio 13 % 12/26/20 23:10 Glucose 167 mg/dL (65-100) H 12/26/20 23:10 POC Glucose 139 mg/dL (70-105) H 12/27/20 08:08 Hemoglobin A1c 7.6 % (4-6) H 12/26/20 23:10 Calcium 8.8 mg/dL (8.4-10.2) 12/26/20 23:10 Total Bilirubin 0.20 mg/dL (0.1-1.2) 12/26/20 23:10 AST 16 units/L (5-40) 12/26/20 23:10 ALT 24 units/L (7-56) 12/26/20 23:10 Alkaline Phosphatase 100 units/L (35-129) 12/26/20 23:10 Total Protein 5.9 g/dL (6.3-8.2) L 12/26/20 23:10 Albumin 3.3 g/dL (3.9-5) L 12/26/20 23:10 Albumin/Globulin Ratio 1.3 % 12/26/20 23:10 Triglycerides 100 mg/dL (2-149) 12/26/20 23:10 Cholesterol 122 mg/dL (50-199) 12/26/20 23:10 LDL Cholesterol Direct 78 mg/dL (50-130) 12/26/20 23:10 HDL Cholesterol 36 mg/dL (40-59) L 12/26/20 23:10 Cholesterol/HDL Ratio 3.38 % 12/26/20 23:10 TSH 2.540 mlU/mL (0.270-4.200) 12/26/20 23:10 Hepatitis A IgM Ab Non-reactive (NonReactive) 12/26/20 23:10 Hep Bs Antigen Nonreactive (Negative) 12/26/20 23:10 Hep B Core IgM Ab Non-reactive (NonReactive) 12/26/20 23:10 Hepatitis C Antibody Non-reactive (NonReactive) 12/26/20 23:10 Last Vital Signs Temp 98.7 F 12/26/20 22:00 Pulse 77 12/26/20 22:00 Resp 18 12/26/20 22:00 BP 110/65 12/26/20 22:00 Pulse Ox 97 12/26/20 22:00 Physical Examination - Constitutional Vitals: Vital Signs Temp Pulse Resp BP Pulse Ox 98.7 F 77 18 110/65 97 12/26/20 22:00 12/26/20 22:00 12/26/20 22:00 12/26/20 22:00 12/26/20 22:00 Temperature -Last 24 Hours Temperature 98.7 F Temperature 98.8 F Mental Status Exam - Vital signs Last Vital Signs Temp 98.7 F 12/26/20 22:00 Pulse 77 12/26/20 22:00 Resp 18 12/26/20 22:00 BP 110/65 12/26/20 22:00 Pulse Ox 97 12/26/20 22:00 Physician Certification - Certification Statement Physician Certification Statement: This is an acknowledgement statement that BLUE ETIENNE is a 60 year old F who requires inpatient psychiatric admission for treatment which could reasonably be expected to improve the patient's condition for Estimated period of time patient will need to remain in the hospital: [ ] Plan for post-hospital care: [ ]
[2020-12-27] MEDS: MONTELUKAST 10 MG TAB PO SCH (10:17)
[2020-12-27] MEDS: LITHIUM CARBONATE 300 MG CAP PO SCH ×2 (10:17→21:31)
[2020-12-27] MEDS: DULoxetine 30 MG CAP PO SCH (10:18)
[2020-12-27] MEDS: FUROSEMIDE 20 MG TAB PO SCH (10:18)
[2020-12-27] MEDS: risperiDONE 1 MG TAB PO SCH (10:18)
[2020-12-27] MEDS: MECLIZINE 25 MG TAB PO PRN (10:20)
[2020-12-27] MEDS: POTASSIUM CHLORIDE ER 20 MEQ TAB PO SCH ×2 (10:26→21:31)
--- NOTE | 2020-12-27 11:37 | Consultation ---
History of Present Illness - Reason for Consult Consult date: 12/27/20 Hypertension,Diabetes Requesting physician: KIRT FUNG - History of Present Illness Patient is 60 yo with hypertension, diabetes, CHF, COPD. She was admitted to [facility] for depression and suicidal. The hospitalist service has been consulted for multiple comorbidities as stated. Currently she denies chest pain or shortness of breath . Her BP is low 91/48, so will hold antihypertensives and diuretics for few days until BP improves. I also discussed with neuropsychologist to adjust meds for hypotension if possible. Past History Past Medical History: COPD, diabetes, heart failure, hypertension, other ([id number]-[id number]-Euxml syndrome(WPW)) Past Surgical History: No surgical history Social history: single, smoking, full code, other (Homeless) Family history: hypertension Medications and Allergies Allergies Allergy/AdvReac Type Severity Reaction Status Date / Time No Known Drug Allergies Allergy Unknown Verified 03/09/20 22:55 Home Medications Medication Instructions Recorded Confirmed Last Taken Type Duloxetine HCl [Drizalma Sprinkle] 60 mg PO DAILY 03/09/20 12/26/20 Unknown History [place] Carbonate [Eskalith] 300 mg PO BID 03/09/20 12/26/20 Unknown History Metoprolol Xl [Metoprolol 25 mg PO QDAY 03/09/20 12/26/20 Unknown History SUCCINATE ER TAB] Paliperidone Palmitate [Invega 156 mg IM QMONTH 03/09/20 12/26/20 Unknown History Sustenna] traZODone [Desyrel] 100 mg PO QHS 03/09/20 12/26/20 Unknown History Albuterol Sulfate [Proventil Hfa] 8.5 gm IH Q4HR PRN 12/26/20 12/26/20 Unknown History Fluticasone Propion/Salmeterol 1 each IH DAILY 12/26/20 12/26/20 Unknown History [Fluticasone-Salmeterol 250-50] Furosemide [Lasix] 10 mg PO QDAY 12/26/20 12/26/20 Unknown History Meclizine HCl [Motion Sickness] 25 mg PO TID PRN 12/26/20 12/26/20 Unknown History Mirtazapine [Remeron] 30 mg PO HS 12/26/20 12/26/20 Unknown History Montelukast [Singulair] 10 mg PO DAILY 12/26/20 12/26/20 Unknown History Potassium Chloride [K-Dur] 20 meq PO BID 12/26/20 12/26/20 Unknown History Triamterene/Hydrochlorothiazid 1 tab PO DAILY 12/26/20 12/26/20 Unknown History [Triamterene-Hctz 37.5-25 mg Tb] Venlafaxine HCl [Venlafaxine HCl 150 mg PO DAILY 12/26/20 12/26/20 Unknown History ER] glipiZIDE [Glucotrol] 10 mg PO DAILY 12/26/20 12/26/20 Unknown History hydrOXYzine PAMOATE [Vistaril] 25 mg PO DAILY 12/26/20 12/26/20 Unknown History metFORMIN [Glucophage] 500 mg PO BID 12/26/20 12/26/20 Unknown History risperiDONE [RisperDAL] 1 mg PO BID 12/26/20 12/26/20 Unknown History Active Meds: Active Medications Arformoterol Tartrate (Arformoterol 15 Mcg/2 Ml Nebu) 15 mcg IH Q12HRT [facility] Budesonide (Budesonide 0.5 Mg/2 Ml Nebu) 0.5 mg IH Q12HRT [facility] Duloxetine HCl (Duloxetine 30 Mg Cap) 60 mg PO DAILY [facility] Last Admin: 12/27/20 10:18 Dose: 60 mg Documented by: Furosemide (Furosemide 20 Mg Tab) 10 mg PO QDAY [facility] Last Admin: 12/27/20 10:18 Dose: 10 mg Documented by: Glipizide (Glipizide 10 Mg Tab) 10 mg PO DAILY [facility] Last Admin: 12/27/20 10:23 Dose: 10 mg Documented by: [place] Carbonate ([place] Carbonate 300 Mg Cap) 300 mg PO BID [facility] Last Admin: 12/27/20 10:17 Dose: 300 mg Documented by: Meclizine HCl (Meclizine 25 Mg Tab) 25 mg PO TID PRN PRN Reason: dizziness Last Admin: 12/27/20 10:20 Dose: 25 mg Documented by: Metformin HCl (Metformin 500 Mg Tab) 500 mg PO BIDDIAB [facility] Last Admin: 12/27/20 09:05 Dose: 500 mg Documented by: Mirtazapine (Mirtazapine 30 Mg Tab) 30 mg PO [facility] Last Admin: 12/26/20 21:05 Dose: 30 mg Documented by: Montelukast Sodium (Montelukast 10 Mg Tab) 10 mg PO DAILY [facility] Last Admin: 12/27/20 10:17 Dose: 10 mg Documented by: Nicotine (Nicotine 21 Mg/24 Hr Patch) 21 mg TD QDAY [facility] Potassium Chloride (Potassium Chloride Er 20 Meq Tab) 20 meq PO BID [facility] Last Admin: 12/27/20 10:26 Dose: Not Given Documented by: Risperidone (Risperidone 0.25 Mg Tab) 0.5 mg PO BID [facility] Trazodone HCl (Trazodone 100 Mg Tab) 100 mg PO QHS [facility] Last Admin: 12/26/20 21:05 Dose: 100 mg Documented by: Review of Systems All systems: negative (No fever, no abd pain, no chest pain. All other systems reviewed and are negative) Exam - Physical Exam Narrative exam: Gen:Not in acute distress, sitting up in chair, HEENT: Normocephalic, atraumatic, Neck:supple, no JVD Lungs: clear to auscultation bilaterally ,no wheeze Heart:S1 and S2 reg, no murmurs, rubs or gallop Abd:Soft, non tender, non distended, normal bowel sounds Ext:No edema. no clubbing, no cyanosis Neuro:Awake, alert, oriented X 3, moves all ext - Constitutional Vitals: Temp Pulse Resp BP Pulse Ox 98.5 F 65 20 91/48 96 12/27/20 09:45 12/27/20 09:45 12/27/20 09:45 12/27/20 10:22 12/27/20 09:45 Results - Labs CBC & Chem 7: 12/26/20 23:10 12/26/20 23:10 Labs: Abnormal lab results 12/26/20 12/26/20 12/26/20 Range/Units 16:04 23:10 23:10 [place] % (Auto) (0.0-7.3) % Eos % (Auto) (0.0-4.3) % Glucose 167 H (65-100) mg/dL POC Glucose 136 H (70-105) mg/dL Hemoglobin A1c 7.6 H (4-6) % Total Protein 5.9 L (6.3-8.2) g/dL Albumin 3.3 L (3.9-5) g/dL HDL Cholesterol 36 L (40-59) mg/dL 12/26/20 12/27/20 12/27/20 Range/Units 23:10 08:06 08:08 [place] % (Auto) 9.1 H (0.0-7.3) % Eos % (Auto) 4.8 H (0.0-4.3) % Glucose (65-100) mg/dL POC Glucose 63 L 139 H (70-105) mg/dL Hemoglobin A1c (4-6) % Total Protein (6.3-8.2) g/dL Albumin (3.9-5) g/dL HDL Cholesterol (40-59) mg/dL Assessment and Plan Suicidal, Depression Admitted to Psych Unit Psychiatry attending Hypertension BP on low side Hold Metoprolol and triamterene/HCTZ Hypotension Hold anti-hypertensives To resume slowly when BP improves with SBP> 140 COPD stable Cont Singulair, Fluticasone/Salmeterol Chronic CHF Hold HCTZ/Ttriamterene because low BP Beta padmini on hold Lasix Hgffb-Skyzatgyk-Enedo syndrome Diabetes Mellitus type 2 On Glucophage and glucotrol Hold Glucotrol since blood glucose stable, so as to avoid hypoglycemia. Can resume Glucotrol if blood glucose > 200 Morbidly obese Homeless Thanks Dr. Fung for consult. Will follow prn.
[2020-12-27] MEDS: NICOTINE 21 MG/24 HR PATCH TD SCH (11:57)
[2020-12-27] MEDS: BUDESONIDE 0.5 MG/2 ML NEBU IH SCH ×2 (12:43→12:46)
[2020-12-27] MEDS: ARFORMOTEROL 15 MCG/2 ML NEBU IH SCH ×2 (12:43→12:45)
[2020-12-27] MEDS: traZODone 100 MG TAB PO SCH (21:30)
[2020-12-27] MEDS: risperiDONE 0.25 MG TAB PO SCH (21:31)
[2020-12-27] MEDS: MIRTAZAPINE 30 MG TAB PO SCH (21:31)
[2020-12-28] MEDS: DULoxetine 30 MG CAP PO SCH (09:23)
[2020-12-28] MEDS: metFORMIN 500 MG TAB PO SCH ×2 (09:23→19:10)
[2020-12-28] MEDS: LITHIUM CARBONATE 300 MG CAP PO SCH ×2 (09:24→21:22)
[2020-12-28] MEDS: NICOTINE 21 MG/24 HR PATCH TD SCH (09:24)
[2020-12-28] MEDS: POTASSIUM CHLORIDE ER 20 MEQ TAB PO SCH ×2 (09:24→21:22)
[2020-12-28] MEDS: FUROSEMIDE 20 MG TAB PO SCH (09:25)
[2020-12-28] MEDS: risperiDONE 0.25 MG TAB PO SCH (09:26)
[2020-12-28] MEDS: MONTELUKAST 10 MG TAB PO SCH (09:27)
--- NOTE | 2020-12-28 09:52 | Progress Note ---
Subjective Date of service: 12/28/20 Principal diagnosis: Schizoaffective Subjective Comment: The patient was seen today. She is calm and cooperative. The patient says she slept well. She denies SI/HI, but says she's more concerned with not having a place to live and this is what makes her feel this way. She verbalizes hearing a voice that says "God bless your heart." She says "it's coming from up above." REVIEW OF SYSTEMS Constitutional: Negative for weight loss ENT: Negative for stridor Respiratory: Negative for cough or hemoptysis All other systems reviewed and are negative MENTAL STATUS EXAMINATION General Appearance and Behavior: Age appropriate, good hygiene, wearing appropriate clothes, calm and cooperative Cooperation: cooperative Psychomotor Behavior: Psychomotor normal Mood: depressed Affect and affective range: irritable Thought Process: logical Thought Content: None Speech: Normal rate, volume and rhythm Suicidal Ideation: Denies at present Homicidal Ideation: Denies HI Hallucinations: Denies Delusions: None elicited Impulse Control: Impaired Insight and Judgment: Limited insight and judgment Memory: Limited Attention: Limited Orientation: Alert, oriented Assessment and Plan (1)Major Depressive Disorder TREATMENT PLAN Patient admitted for inpatient psychiatric evaluation, medication adjustment and close monitoring The patient's behavior, mood, sleep and appetite will be closely monitored. Patient enrolled in individual and group therapeutic sessions and encouraged to attend. Patient provided with a safe and structured environment. Patient's physical health needs will be addressed by the Hospitalist. Hospitalist Consulted Labs including CBC, CMP, Lipid profile and Hemoglobin A1C levels ordered for baseline reference Increased Home Risperidone 1mg po BID Social Assessment will be completed and the Cereal Supervisor will work with patient and family to ensure a suitable and safe disposition Medication adjustment will be made as clinically indicated Usual Wellness Anabaptism/Preservation: - Start Trazodone 50 mg po QHS & 50 mg po QHS PRN between 10 PM & 2 AM for insomnia - Start Melatonin 5 mg po QHS to promote circadian rhythm - Start [place]-3 for brain health, reduce impulsivity, and as adjunctive treatment for mood disorder, continue upon discharge given overall benefits. - Start B1 prophylaxis with 200 mg po for 5 days The patient agreed on the treatment plan, understood the risk, benefit, alternative treatment, potential consequence of no treatment, and gave informed consent. Estimated days: 6 Post hospital care: primary care provider, psychiatric provider Medications and Allergies Allergies Allergy/AdvReac Type Severity Reaction Status Date / Time No Known Drug Allergies Allergy Unknown Verified 03/09/20 22:55 Home Medications Medication Instructions Recorded Confirmed Last Taken Type Duloxetine HCl [Drizalma Sprinkle] 60 mg PO DAILY 03/09/20 12/26/20 Unknown History [place] Carbonate [Eskalith] 300 mg PO BID 03/09/20 12/26/20 Unknown History Metoprolol Xl [Metoprolol 25 mg PO QDAY 03/09/20 12/26/20 Unknown History SUCCINATE ER TAB] Paliperidone Palmitate [Invega 156 mg IM QMONTH 03/09/20 12/26/20 Unknown History Sust[place]] traZODone [Desyrel] 100 mg PO QHS 03/09/20 12/26/20 Unknown History Albuterol Sulfate [Proventil Hfa] 8.5 gm IH Q4HR PRN 12/26/20 12/26/20 Unknown History Fluticasone Propion/Salmeterol 1 each IH DAILY 12/26/20 12/26/20 Unknown History [Fluticasone-Salmeterol 250-50] Furosemide [Lasix] 10 mg PO QDAY 12/26/20 12/26/20 Unknown History Meclizine HCl [Motion Sickness] 25 mg PO TID PRN 12/26/20 12/26/20 Unknown Histo ry Mirtazapine [Remeron] 30 mg PO HS 12/26/20 12/26/20 Unknown History Montelukast [Singulair] 10 mg PO DAILY 12/26/20 12/26/20 Unknown History Potassium Chloride [K-Dur] 20 meq PO BID 12/26/20 12/26/20 Unknown History Triamterene/Hydrochlorothiazid 1 tab PO DAILY 12/26/20 12/26/20 Unknown History [Triamterene-Hctz 37.5-25 mg Tb] Venlafaxine HCl [Venlafaxine HCl 150 mg PO DAILY 12/26/20 12/26/20 Unknown History ER] glipiZIDE [Glucotrol] 10 mg PO DAILY 12/26/20 12/26/20 Unknown History hydrOXYzine PAMOATE [Vistaril] 25 mg PO DAILY 12/26/20 12/26/20 Unknown History metFORMIN [Glucophage] 500 mg PO BID 12/26/20 12/26/20 Unknown History risperiDONE [RisperDAL] 1 mg PO BID 12/26/20 12/26/20 Unknown History Active Meds: Active Medications Arformoterol Tartrate (Arformoterol 15 Mcg/2 Ml Nebu) 15 mcg IH Q12HRT [facility] Last Admin: 12/27/20 12:45 Dose: Not Given Documented by: Budesonide (Budesonide 0.5 Mg/2 Ml Nebu) 0.5 mg IH Q12HRT [facility] Last Admin: 12/27/20 12:46 Dose: Not Given Documented by: Duloxetine HCl (Duloxetine 30 Mg Cap) 60 mg PO DAILY [facility] Last Admin: 12/28/20 09:23 Dose: 60 mg Documented by: Furosemide (Furosemide 20 Mg Tab) 10 mg PO QDAY [facility] Last Admin: 12/28/20 09:25 Dose: 10 mg Documented by: [place] Carbonate ([place] Carbonate 300 Mg Cap) 300 mg PO BID [facility] Last Admin: 12/28/20 09:24 Dose: 300 mg Documented by: Meclizine HCl (Meclizine 25 Mg Tab) 25 mg PO TID PRN PRN Reason: dizziness Last Admin: 12/27/20 10:20 Dose: 25 mg Documented by: Metformin HCl (Metformin 500 Mg Tab) 500 mg PO BIDDIAB [facility] Last Admin: 12/28/20 09:23 Dose: 500 mg Documented by: Mirtazapine (Mirtazapine 30 Mg Tab) 30 mg PO HS [facility] Last Admin: 12/27/20 21:31 Dose: 30 mg Documented by: Montelukast Sodium (Montelukast 10 Mg Tab) 10 mg PO DAILY [facility] Last Admin: 12/28/20 09:27 Dose: 10 mg Documented by: Nicotine (Nicotine 21 Mg/24 Hr Patch) 21 mg TD QDAY [facility] Last Admin: 12/28/20 09:24 Dose: Not Given Documented by: Potassium Chloride (Potassium Chloride Er 20 Meq Tab) 20 meq PO BID [facility] Last Admin: 12/28/20 09:24 Dose: Not Given Documented by: Risperidone (Risperidone 0.25 Mg Tab) 0.5 mg PO BID [facility] Last Admin: 12/28/20 09:26 Dose: 0.5 mg Documented by: Trazodone HCl (Trazodone 100 Mg Tab) 100 mg PO QHS [facility] Last Admin: 12/27/20 21:30 Dose: 100 mg Documented by: Results - Results Labs/Vitals: Laboratory Last Values WBC 8.8 K/mm3 (4.5-11.0) 12/26/20 23:10 RBC 4.39 M/mm3 (3.65-5.03) 12/26/20 23:10 Hgb 13.0 gm/dl (10.1-14.3) 12/26/20 23:10 Hct 39.0 % (30.3-42.9) 12/26/20 23:10 MCV 89 fl (79-97) 12/26/20 23:10 MCH 30 pg (28-32) 12/26/20 23:10 MCHC 33 % (30-34) 12/26/20 23:10 RDW 13.7 % (13.2-15.2) 12/26/20 23:10 Plt Count 253 K/mm3 (140-440) 12/26/20 23:10 Lymph % (Auto) 25.5 % (13.4-35.0) 12/26/20 23:10 [place] % (Auto) 9.1 % (0.0-7.3) H 12/26/20 23:10 Eos % (Auto) 4.8 % (0.0-4.3) H 12/26/20 23:10 Baso % (Auto) 0.8 % (0.0-1.8) 12/26/20 23:10 Lymph # (Auto) 2.2 K/mm3 (1.2-5.4) 12/26/20 23:10 [place] # (Auto) 0.8 K/mm3 (0.0-0.8) 12/26/20 23:10 Eos # (Auto) 0.4 K/mm3 (0.0-0.4) 12/26/20 23:10 Baso # (Auto) 0.1 K/mm3 (0.0-0.1) 12/26/20 23:10 Seg Neutrophils % 59.8 % (40.0-70.0) 12/26/20 23:10 Seg Neutrophils # 5.2 K/mm3 (1.8-7.7) 12/26/20 23:10 Sodium 141 mmol/L (137-145) 12/26/20 23:10 Potassium 3.7 mmol/L (3.6-5.0) 12/26/20 23:10 Chloride 104.2 mmol/L (98-107) 12/26/20 23:10 Carbon Dioxide 30 mmol/L (22-30) 12/26/20 23:10 Anion Gap 11 mmol/L 12/26/20 23:10 BUN 9 mg/dL (7-17) 12/26/20 23:10 Creatinine 0.7 mg/dL (0.6-1.2) 12/26/20 23:10 Estimated GFR > 60 ml/min 12/26/20 23:10 BUN/Creatinine Ratio 13 % 12/26/20 23:10 Glucose 167 mg/dL (65-100) H 12/26/20 23:10 POC Glucose 115 mg/dL (70-105) H 12/28/20 08:23 Hemoglobin A1c 7.6 % (4-6) H 12/26/20 23:10 Calcium 8.8 mg/dL (8.4-10.2) 12/26/20 23:10 Total Bilirubin 0.20 mg/dL (0.1-1.2) 12/26/20 23:10 AST 16 units/L (5-40) 12/26/20 23:10 ALT 24 units/L (7-56) 12/26/20 23:10 Alkaline Phosphatase 100 units/L (35-129) 12/26/20 23:10 Total Protein 5.9 g/dL (6.3-8.2) L 12/26/20 23:10 Albumin 3.3 g/dL (3.9-5) L 12/26/20 23:10 Albumin/Globulin Ratio 1.3 % 12/26/20 23:10 Triglycerides 100 mg/dL (2-149) 12/26/20 23:10 Cholesterol 122 mg/dL (50-199) 12/26/20 23:10 LDL Cholesterol Direct 78 mg/dL (50-130) 12/26/20 23:10 HDL Cholesterol 36 mg/dL (40-59) L 12/26/20 23:10 Cholesterol/HDL Ratio 3.38 % 12/26/20 23:10 TSH 2.540 mlU/mL (0.270-4.200) 12/26/20 23:10 Hepatitis A IgM Ab Non-reactive (NonReactive) 12/26/20 23:10 Hep Bs Antigen Nonreactive (Negative) 12/26/20 23:10 Hep B Core IgM Ab Non-reactive (NonReactive) 12/26/20 23:10 Hepatitis C Antibody Non-reactive (NonReactive) 12/26/20 23:10 Last Vital Signs Temp 98.9 F 12/27/20 21:50 Pulse 73 12/27/20 21:50 Resp 20 12/27/20 21:50 BP 118/67 12/27/20 21:50 Pulse Ox 95 12/27/20 21:50
[2020-12-28] MEDS ORDERED: risperiDONE 0.25 MG TAB PO SCH (11:00)
[2020-12-28] MEDS ORDERED: ACETAMINOPHEN 325 MG TAB PO PRN (12:00)
[2020-12-28] MEDS: traZODone 100 MG TAB PO SCH (21:22)
[2020-12-28] MEDS: risperiDONE 1 MG TAB PO SCH (21:22)
[2020-12-28] MEDS: MIRTAZAPINE 30 MG TAB PO SCH (21:22)
[2020-12-29] MEDS: BUDESONIDE 0.5 MG/2 ML NEBU IH SCH ×3 (09:15→21:50)
[2020-12-29] MEDS: ARFORMOTEROL 15 MCG/2 ML NEBU IH SCH ×5 (09:15→21:50)
--- NOTE | 2020-12-29 09:47 | Progress Note ---
Subjective Date of service: 12/29/20 Principal diagnosis: Schizoaffective Subjective Comment: The patient was seen today. She is in the dayroom sleeping. She says she feels pretty optimistic about the situation. She denies SI/HI or hallucinations. The patient says "it's not having a place to go that gives me thoughts." She verbalize still hearing the voice that says "God, bless your heart." REVIEW OF SYSTEMS Constitutional: Negative for weight loss ENT: Negative for stridor Respiratory: Negative for cough or hemoptysis All other systems reviewed and are negative MENTAL STATUS EXAMINATION General Appearance and Behavior: Age appropriate, good hygiene, wearing appropriate clothes, calm and cooperative Cooperation: cooperative Psychomotor Behavior: Psychomotor normal Mood: depressed Affect and affective range: irritable Thought Process: logical Thought Content: None Speech: Normal rate, volume and rhythm Suicidal Ideation: Denies at present Homicidal Ideation: Denies HI Hallucinations: Denies Delusions: None elicited Impulse Control: Impaired Insight and Judgment: Limited insight and judgment Memory: Limited Attention: Limited Orientation: Alert, oriented Assessment and Plan (1)Major Depressive Disorder TREATMENT PLAN Patient admitted for inpatient psychiatric evaluation, medication adjustment and close monitoring The patient's behavior, mood, sleep and appetite will be closely monitored. Patient enrolled in individual and group therapeutic sessions and encouraged to attend. Patient provided with a safe and structured environment. Patient's physical health needs will be addressed by the Hospitalist. Hospitalist Consulted Labs including CBC, CMP, Lipid profile and Hemoglobin A1C levels ordered for baseline reference Increased Home Risperidone 1mg po BID yesterday No changes made Social Assessment will be completed and the Street And Building Decorator will work with patient and family to ensure a suitable and safe disposition Medication adjustment will be made as clinically indicated Usual Wellness Sikh/Preservation: - Start Trazodone 50 mg po QHS & 50 mg po QHS PRN between 10 PM & 2 AM for insomnia - Start Melatonin 5 mg po QHS to promote circadian rhythm - Start [place]-3 for brain health, reduce impulsivity, and as adjunctive treatment for mood disorder, continue upon discharge given overall benefits. - Start B1 prophylaxis with 200 mg po for 5 days The patient agreed on the treatment plan, understood the risk, benefit, alternative treatment, potential consequence of no treatment, and gave informed consent. Estimated days: 6 Post hospital care: primary care provider, psychiatric provider Medications and Allergies Allergies Allergy/AdvReac Type Severity Reaction Status Date / Time No Known Drug Allergies Allergy Unknown Verified 03/09/20 22:55 Home Medications Medication Instructions Recorded Confirmed Last Taken Type Duloxetine HCl [Drizalma Sprinkle] 60 mg PO DAILY 03/09/20 12/26/20 Unknown History [place] Carbonate [Eskalith] 300 mg PO BID 03/09/20 12/26/20 Unknown History Metoprolol Xl [Metoprolol 25 mg PO QDAY 03/09/20 12/26/20 Unknown History SUCCINATE ER TAB] Paliperidone Palmitate [Invega 156 mg IM QMONTH 03/09/20 12/26/20 Unknown History Sustenna] traZODone [Desyrel] 100 mg PO QHS 03/09/20 12/26/20 Unknown History Albuterol Sulfate [Proventil Hfa] 8.5 gm IH Q4HR PRN 12/26/20 12/26/20 Unknown History Fluticasone Propion/Salmeterol 1 each IH DAILY 12/26/20 12/26/20 Unknown History [Fluticasone-Salmeterol 250-50] Furosemide [Lasix] 10 mg PO QDAY 12/26/20 12/26/20 Unknown History Meclizine HCl [Motion Sickness] 25 mg PO TID PRN 12/26/20 12/26/20 Unknown History Mirtazapine [Remeron] 30 mg PO HS 12/26/20 12/26/20 Unknown History Montelukast [Singulair] 10 mg PO DAILY 12/26/20 12/26/20 Unknown History Potassium Chloride [K-Dur] 20 meq PO BID 12/26/20 12/26/20 Unknown History Triamterene/Hydrochlorothiazid 1 tab PO DAILY 12/26/20 12/26/20 Unknown History [Triamterene-Hctz 37.5-25 mg Tb] Venlafaxine HCl [Venlafaxine HCl 150 mg PO DAILY 12/26/20 12/26/20 Unknown History ER] glipiZIDE [Glucotrol] 10 mg PO DAILY 12/26/20 12/26/20 Unknown History hydrOXYzine PAMOATE [Vistaril] 25 mg PO DAILY 12/26/20 12/26/20 Unknown History metFORMIN [Glucophage] 500 mg PO BID 12/26/20 12/26/20 Unknown History risperiDONE [RisperDAL] 1 mg PO BID 12/26/20 12/26/20 Unknown History Active Meds: Active Medications Acetaminophen (Acetaminophen 325 Mg Tab) 650 mg PO Q6H PRN PRN Reason: Pain, Mild (1-3) Last Admin: 12/28/20 12:49 Dose: 650 mg Documented by: Arformoterol Tartrate (Arformoterol 15 Mcg/2 Ml Nebu) 15 mcg IH Q12HRT [facility] Last Admin: 12/29/20 09:16 Dose: 15 mcg Documented by: Budesonide (Budesonide 0.5 Mg/2 Ml Nebu) 0.5 mg IH Q12HRT [facility] Last Admin: 12/29/20 09:15 Dose: 0.5 mg Documented by: Duloxetine HCl (Duloxetine 30 Mg Cap) 60 mg PO DAILY [facility] Last Admin: 12/28/20 09:23 Dose: 60 mg Documented by: Furosemide (Furosemide 20 Mg Tab) 10 mg PO QDAY [facility] Last Admin: 12/28/20 09:25 Dose: 10 mg Documented by: [place] Carbonate ([place] Carbonate 300 Mg Cap) 300 mg PO BID [facility] Last Admin: 12/28/20 21:22 Dose: 300 mg Documented by: Meclizine HCl (Meclizine 25 Mg Tab) 25 mg PO TID PRN PRN Reason: dizziness Last Admin: 12/27/20 10:20 Dose: 25 mg Documented by: Metformin HCl (Metformin 500 Mg Tab) 500 mg PO BIDDIAB [facility] Last Admin: 12/28/20 19:10 Dose: 500 mg Documented by: Mirtazapine (Mirtazapine 30 Mg Tab) 30 mg PO HS [facility] Last Admin: 12/28/20 21:22 Dose: 30 mg Documented by: Montelukast Sodium (Montelukast 10 Mg Tab) 10 mg PO DAILY [facility] Last Admin: 12/28/20 09:27 Dose: 10 mg Documented by: Nicotine (Nicotine 21 Mg/24 Hr Patch) 21 mg TD QDAY [facility] Last Admin: 12/28/20 09:24 Dose: Not Given Documented by: Potassium Chloride (Potassium Chloride Er 20 Meq Tab) 20 meq PO BID [facility] Last Admin: 12/28/20 21:22 Dose: Not Given Documented by: Risperidone (Risperidone 1 Mg Tab) 1 mg PO BID [facility] Last Admin: 12/28/20 21:22 Dose: 1 mg Documented by: Trazodone HCl (Trazodone 100 Mg Tab) 100 mg PO QHS [facility] Last Admin: 12/28/20 21:22 Dose: 100 mg Documented by: Results - Results Labs/Vitals: Laboratory Last Values WBC 8.8 K/mm3 (4.5-11.0) 12/26/20 23:10 RBC 4.39 M/mm3 (3.65-5.03) 12/26/20 23:10 Hgb 13.0 gm/dl (10.1-14.3) 12/26/20 23:10 Hct 39.0 % (30.3-42.9) 12/26/20 23:10 MCV 89 fl (79-97) 12/26/20 23:10 MCH 30 pg (28-32) 12/26/20 23:10 MCHC 33 % (30-34) 12/26/20 23:10 RDW 13.7 % (13.2-15.2) 12/26/20 23:10 Plt Count 253 K/mm3 (140-440) 12/26/20 23:10 Lymph % (Auto) 25.5 % (13.4-35.0) 12/26/20 23:10 [place] % (Auto) 9.1 % (0.0-7.3) H 12/26/20 23:10 Eos % (Auto) 4.8 % (0.0-4.3) H 12/26/20 23:10 Baso % (Auto) 0.8 % (0.0-1.8) 12/26/20 23:10 Lymph # (Auto) 2.2 K/mm3 (1.2-5.4) 12/26/20 23:10 [place] # (Auto) 0.8 K/mm3 (0.0-0.8) 12/26/20 23:10 Eos # (Auto) 0.4 K/mm3 (0.0-0.4) 12/26/20 23:10 Baso # (Auto) 0.1 K/mm3 (0.0-0.1) 12/26/20 23:10 Seg Neutrophils % 59.8 % (40.0-70.0) 12/26/20 23:10 Seg Neutrophils # 5.2 K/mm3 (1.8-7.7) 12/26/20 23:10 Sodium 141 mmol/L (137-145) 12/26/20 23:10 Potassium 3.7 mmol/L (3.6-5.0) 12/26/20 23:10 Chloride 104.2 mmol/L (98-107) 12/26/20 23:10 Carbon Dioxide 30 mmol/L (22-30) 12/26/20 23:10 Anion Gap 11 mmol/L 12/26/20 23:10 BUN 9 mg/dL (7-17) 12/26/20 23:10 Creatinine 0.7 mg/dL (0.6-1.2) 12/26/20 23:10 Estimated GFR > 60 ml/min 12/26/20 23:10 BUN/Creatinine Ratio 13 % 12/26/20 23:10 Glucose 167 mg/dL (65-100) H 12/26/20 23:10 POC Glucose 113 mg/dL (70-105) H 12/29/20 06:09 Hemoglobin A1c 7.6 % (4-6) H 12/26/20 23:10 Calcium 8.8 mg/dL (8.4-10.2) 12/26/20 23:10 Total Bilirubin 0.20 mg/dL (0.1-1.2) 12/26/20 23:10 AST 16 units/L (5-40) 12/26/20 23:10 ALT 24 units/L (7-56) 12/26/20 23:10 Alkaline Phosphatase 100 units/L (35-129) 12/26/20 23:10 Total Protein 5.9 g/dL (6.3-8.2) L 12/26/20 23:10 Albumin 3.3 g/dL (3.9-5) L 12/26/20 23:10 Albumin/Globulin Ratio 1.3 % 12/26/20 23:10 Triglycerides 100 mg/dL (2-149) 12/26/20 23:10 Cholesterol 122 mg/dL (50-199) 12/26/20 23:10 LDL Cholesterol Direct 78 mg/dL (50-130) 12/26/20 23:10 HDL Cholesterol 36 mg/dL (40-59) L 12/26/20 23:10 Cholesterol/HDL Ratio 3.38 % 12/26/20 23:10 TSH 2.540 mlU/mL (0.270-4.200) 12/26/20 23:10 Hepatitis A IgM Ab Non-reactive (NonReactive) 12/26/20 23:10 Hep Bs Antigen Nonreactive (Negative) 12/26/20 23:10 Hep B Core IgM Ab Non-reactive (NonReactive) 12/26/20 23:10 Hepatitis C Antibody Non-reactive (NonReactive) 12/26/20 23:10 Last Vital Signs Temp 99.0 F 12/28/20 19:42 Pulse 75 12/29/20 09:16 Resp 18 12/29/20 09:16 BP 119/66 12/28/20 19:42 Pulse Ox 97 12/28/20 19:42
[2020-12-29] MEDS: POTASSIUM CHLORIDE ER 20 MEQ TAB PO SCH ×2 (10:18→21:01)
[2020-12-29] MEDS: MONTELUKAST 10 MG TAB PO SCH (10:27)
[2020-12-29] MEDS: DULoxetine 30 MG CAP PO SCH (10:27)
[2020-12-29] MEDS: metFORMIN 500 MG TAB PO SCH ×2 (10:28→17:20)
[2020-12-29] MEDS: FUROSEMIDE 20 MG TAB PO SCH (10:28)
[2020-12-29] MEDS: LITHIUM CARBONATE 300 MG CAP PO SCH ×2 (10:28→21:01)
[2020-12-29] MEDS: NICOTINE 21 MG/24 HR PATCH TD SCH (10:28)
[2020-12-29] MEDS: risperiDONE 1 MG TAB PO SCH ×2 (10:31→21:01)
[2020-12-29] MEDS: METOPROLOL SUCCINATE XL 25 MG TAB PO SCH (14:04)
[2020-12-29] MEDS: traZODone 100 MG TAB PO SCH (21:01)
[2020-12-29] MEDS: MIRTAZAPINE 30 MG TAB PO SCH (21:01)
--- NOTE | 2020-12-30 09:02 | Progress Note ---
Subjective Date of service: 12/30/20 Principal diagnosis: Schizoaffective Subjective Comment: The patient was seen today. She is awake. She is calm and cooperative. She says she feels better, but still hearing voices telling her "God, bless your heart." The patient will discharge once the sets up outpatient resources to ensue continuity of mental wellness. REVIEW OF SYSTEMS Constitutional: Negative for weight loss ENT: Negative for stridor Respiratory: Negative for cough or hemoptysis All other systems reviewed and are negative MENTAL STATUS EXAMINATION General Appearance and Behavior: Age appropriate, good hygiene, wearing appropri ate clothes, calm and cooperative Cooperation: cooperative Psychomotor Behavior: Psychomotor normal Mood: better Affect and affective range: congruent with stated mood Thought Process: logical Thought Content: hallucinations Speech: Normal rate, volume and rhythm Suicidal Ideation: Denies at present Homicidal Ideation: Denies HI Hallucinations: Denies Delusions: None elicited Impulse Control: Impaired Insight and Judgment: Limited insight and judgment Memory: Limited Attention: Limited Orientation: Alert, oriented Assessment and Plan (1)Major Depressive Disorder TREATMENT PLAN Patient admitted for inpatient psychiatric evaluation, medication adjustment and close monitoring The patient's behavior, mood, sleep and appetite will be closely monitored. Patient enrolled in individual and group therapeutic sessions and encouraged to attend. Patient provided with a safe and structured environment. Patient's physical health needs will be addressed by the Hospitalist. Hospitalist Consulted Labs including CBC, CMP, Lipid profile and Hemoglobin A1C levels ordered for baseline reference No changes made Social Assessment will be completed and the Agronomy Teacher will work with patient and family to ensure a suitable and safe disposition Medication adjustment will be made as clinically indicated Usual Wellness Jewish/Preservation: - Start Trazodone 50 mg po QHS & 50 mg po QHS PRN between 10 PM & 2 AM for insomnia - Start Melatonin 5 mg po QHS to promote circadian rhythm - Start [place]-3 for brain health, reduce impulsivity, and as adjunctive treatment for mood disorder, continue upon discharge given overall benefits. - Start B1 prophylaxis with 200 mg po for 5 days The patient agreed on the treatment plan, understood the risk, benefit, alternative treatment, potential consequence of no treatment, and gave informed consent. Estimated days: 6 Post hospital care: primary care provider, psychiatric provider Medications and Allergies Allergies Allergy/AdvReac Type Severity Reaction Status Date / Time No Known Drug Allergies Allergy Unknown Verified 03/09/20 22:55 Home Medications Medication Instructions Recorded Confirmed Last Taken Type Duloxetine HCl [Drizalma Sprinkle] 60 mg PO DAILY 03/09/20 12/26/20 Unknown History [place] Carbonate [Eskalith] 300 mg PO BID 03/09/20 12/26/20 Unknown History Metoprolol Xl [Metoprolol 25 mg PO QDAY 03/09/20 12/26/20 Unknown History SUCCINATE ER TAB] Paliperidone Palmitate [Invega 156 mg IM QMONTH 03/09/20 12/26/20 Unknown History Sustenna] traZODone [Desyrel] 100 mg PO QHS 03/09/20 12/26/20 Unknown History Albuterol Sulfate [Proventil Hfa] 8.5 gm IH Q4HR PRN 12/26/20 12/26/20 Unknown History Fluticasone Propion/Salmeterol 1 each IH DAILY 12/26/20 12/26/20 Unknown History [Fluticasone-Salmeterol 250-50] Furosemide [Lasix] 10 mg PO QDAY 12/26/20 12/26/20 Unknown History Meclizine HCl [Motion Sickness] 25 mg PO TID PRN 12/26/20 12/26/20 Unknown History Mirtazapine [Remeron] 30 mg PO HS 12/26/20 12/26/20 Unknown History Montelukast [Singulair] 10 mg PO DAILY 12/26/20 12/26/20 Unknown History Potassium Chloride [K-Dur] 20 meq PO BID 12/26/20 12/26/20 Unknown History Triamterene/Hydrochlorothiazid 1 tab PO DAILY 12/26/20 12/26/20 Unknown History [Triamterene-Hctz 37.5-25 mg Tb] Venlafaxine HCl [Venlafaxine HCl 150 mg PO DAILY 12/26/20 12/26/20 Unknown History ER] glipiZIDE [Glucotrol] 10 mg PO DAILY 12/26/20 12/26/20 Unknown History hydrOXYzine PAMOATE [Vistaril] 25 mg PO DAILY 12/26/20 12/26/20 Unknown History metFORMIN [Glucophage] 500 mg PO BID 12/26/20 12/26/20 Unknown History risperiDONE [RisperDAL] 1 mg PO BID 12/26/20 12/26/20 Unknown History Active Meds: Active Medications Acetaminophen (Acetaminophen 325 Mg Tab) 650 mg PO Q6H PRN PRN Reason: Pain, Mild (1-3) Last Admin: 12/28/20 12:49 Dose: 650 mg Documented by: Arformoterol Tartrate (Arformoterol 15 Mcg/2 Ml Nebu) 15 mcg IH Q12HRT [facility] Last Admin: 12/29/20 21:50 Dose: Not Given Documented by: Budesonide (Budesonide 0.5 Mg/2 Ml Nebu) 0.5 mg IH Q12HRT [facility] Last Admin: 12/29/20 21:50 Dose: Not Given Documented by: Duloxetine HCl (Duloxetine 30 Mg Cap) 60 mg PO DAILY [facility] Last Admin: 12/29/20 10:27 Dose: 60 mg Documented by: Furosemide (Furosemide 20 Mg Tab) 10 mg PO QDAY [facility] Last Admin: 12/29/20 10:28 Dose: 10 mg Documented by: [place] Carbonate ([place] Carbonate 300 Mg Cap) 300 mg PO BID [facility] Last Admin: 12/29/20 21:01 Dose: 300 mg Documented by: Meclizine HCl (Meclizine 25 Mg Tab) 25 mg PO TID PRN PRN Reason: dizziness Last Admin: 12/27/20 10:20 Dose: 25 mg Documented by: Metformin HCl (Metformin 500 Mg Tab) 500 mg PO BIDDIAB [facility] Last Admin: 12/29/20 17:20 Dose: 500 mg Documented by: Metoprolol Succinate (Metoprolol Succinate Xl 25 Mg Tab) 25 mg PO QDAY [facility] Last Admin: 12/29/20 14:04 Dose: 25 mg Documented by: Mirtazapine (Mirtazapine 30 Mg Tab) 30 mg PO HS [facility] Last Admin: 12/29/20 21:01 Dose: 30 mg Documented by: Montelukast Sodium (Montelukast 10 Mg Tab) 10 mg PO DAILY [facility] Last Admin: 12/29/20 10:27 Dose: 10 mg Documented by: Nicotine (Nicotine 21 Mg/24 Hr Patch) 21 mg TD QDAY [facility] Last Admin: 12/29/20 10:28 Dose: Not Given Documented by: Potassium Chloride (Potassium Chloride Er 20 Meq Tab) 20 meq PO BID [facility] Last Admin: 12/29/20 21:01 Dose: Not Given Documented by: Risperidone (Risperidone 1 Mg Tab) 1 mg PO BID [facility] Last Admin: 12/29/20 21:01 Dose: 1 mg Documented by: Trazodone HCl (Trazodone 100 Mg Tab) 100 mg PO QHS [facility] Last Admin: 12/29/20 21:01 Dose: 100 mg Documented by: Results - Results Labs/Vitals: Laboratory Last Values WBC 8.8 K/mm3 (4.5-11.0) 12/26/20 23:10 RBC 4.39 M/mm3 (3.65-5.03) 12/26/20 23:10 Hgb 13.0 gm/dl (10.1-14.3) 12/26/20 23:10 Hct 39.0 % (30.3-42.9) 12/26/20 23:10 MCV 89 fl (79-97) 12/26/20 23:10 MCH 30 pg (28-32) 12/26/20 23:10 MCHC 33 % (30-34) 12/26/20 23:10 RDW 13.7 % (13.2-15.2) 12/26/20 23:10 Plt Count 253 K/mm3 (140-440) 12/26/20 23:10 Lymph % (Auto) 25.5 % (13.4-35.0) 12/26/20 23:10 [place] % (Auto) 9.1 % (0.0-7.3) H 12/26/20 23:10 Eos % (Auto) 4.8 % (0.0-4.3) H 12/26/20 23:10 Baso % (Auto) 0.8 % (0.0-1.8) 12/26/20 23:10 Lymph # (Auto) 2.2 K/mm3 (1.2-5.4) 12/26/20 23:10 [place] # (Auto) 0.8 K/mm3 (0.0-0.8) 12/26/20 23:10 Eos # (Auto) 0.4 K/mm3 (0.0-0.4) 12/26/20 23:10 Baso # (Auto) 0.1 K/mm3 (0.0-0.1) 12/26/20 23:10 Seg Neutrophils % 59.8 % (40.0-70.0) 12/26/20 23:10 Seg Neutrophils # 5.2 K/mm3 (1.8-7.7) 12/26/20 23:10 Sodium 141 mmol/L (137-145) 12/26/20 23:10 Potassium 3.7 mmol/L (3.6-5.0) 12/26/20 23:10 Chloride 104.2 mmol/L (98-107) 12/26/20 23:10 Carbon Dioxide 30 mmol/L (22-30) 12/26/20 23:10 Anion Gap 11 mmol/L 12/26/20 23:10 BUN 9 mg/dL (7-17) 12/26/20 23:10 Creatinine 0.7 mg/dL (0.6-1.2) 12/26/20 23:10 Estimated GFR > 60 ml/min 12/26/20 23:10 BUN/Creatinine Ratio 13 % 12/26/20 23:10 Glucose 167 mg/dL (65-100) H 12/26/20 23:10 POC Glucose 130 mg/dL (70-105) H 12/30/20 06:14 Hemoglobin A1c 7.6 % (4-6) H 12/26/20 23:10 Calcium 8.8 mg/dL (8.4-10.2) 12/26/20 23:10 Total Bilirubin 0.20 mg/dL (0.1-1.2) 12/26/20 23:10 AST 16 units/L (5-40) 12/26/20 23:10 ALT 24 units/L (7-56) 12/26/20 23:10 Alkaline Phosphatase 100 units/L (35-129) 12/26/20 23:10 Total Protein 5.9 g/dL (6.3-8.2) L 12/26/20 23:10 Albumin 3.3 g/dL (3.9-5) L 12/26/20 23:10 Albumin/Globulin Ratio 1.3 % 12/26/20 23:10 Triglycerides 100 mg/dL (2-149) 12/26/20 23:10 Cholesterol 122 mg/dL (50-199) 12/26/20 23:10 LDL Cholesterol Direct 78 mg/dL (50-130) 12/26/20 23:10 HDL Cholesterol 36 mg/dL (40-59) L 12/26/20 23:10 Cholesterol/HDL Ratio 3.38 % 12/26/20 23:10 TSH 2.540 mlU/mL (0.270-4.200) 12/26/20 23:10 Hepatitis A IgM Ab Non-reactive (NonReactive) 12/26/20 23:10 Hep Bs Antigen Nonreactive (Negative) 12/26/20 23:10 Hep B Core IgM Ab Non-reactive (NonReactive) 12/26/20 23:10 Hepatitis C Antibody Non-reactive (NonReactive) 12/26/20 23:10 Last Vital Signs Temp 98.9 F 12/29/20 22:00 Pulse 66 12/29/20 22:00 Resp 16 12/29/20 22:00 BP 101/58 12/29/20 22:00 Pulse Ox 96 12/29/20 22:00
[2020-12-30] MEDS: DULoxetine 30 MG CAP PO SCH (09:42)
[2020-12-30] MEDS: risperiDONE 1 MG TAB PO SCH ×2 (09:42→21:06)
[2020-12-30] MEDS: LITHIUM CARBONATE 300 MG CAP PO SCH ×2 (09:42→21:05)
[2020-12-30] MEDS: metFORMIN 500 MG TAB PO SCH ×2 (09:42→17:50)
[2020-12-30] MEDS: METOPROLOL SUCCINATE XL 25 MG TAB PO SCH (09:42)
[2020-12-30] MEDS: MECLIZINE 25 MG TAB PO PRN (09:42)
[2020-12-30] MEDS: FUROSEMIDE 20 MG TAB PO SCH (09:43)
[2020-12-30] MEDS: NICOTINE 21 MG/24 HR PATCH TD SCH (09:43)
[2020-12-30] MEDS: MONTELUKAST 10 MG TAB PO SCH (09:43)
[2020-12-30] MEDS: POTASSIUM CHLORIDE ER 20 MEQ TAB PO SCH ×2 (09:46→21:06)
[2020-12-30] MEDS: traZODone 100 MG TAB PO SCH (21:04)
[2020-12-30] MEDS: MIRTAZAPINE 30 MG TAB PO SCH (21:06)
--- NOTE | 2020-12-31 08:35 | Progress Note ---
Subjective Date of service: 12/31/20 Principal diagnosis: Schizoaffective Subjective Comment: The patient was seen today. She is awake. She is calm and cooperative. She states she is ready to go home. She denies SI/HI. She still hears the voice saying "God bless your heart" which she says is her baseline. Reason for continued hospitalization: The patient is stable and appear to be at her baseline. She is clear from psych. Spoke with the SW who states she has to make collateral and set up outpatient resources. REVIEW OF SYSTEMS Constitutional: Negative for weight loss ENT: Negative for stridor Respiratory: Negative for cough or hemoptysis All other systems reviewed and are negative MENTAL STATUS EXAMINATION General Appearance and Behavior: Age appropriate, good hygiene, wearing appropriate clothes, calm and cooperative Cooperation: cooperative Psychomotor Behavior: Psychomotor normal Mood: better Affect and affective range: congruent with stated mood Thought Process: logical Thought Content: hallucinations Speech: Normal rate, volume and rhythm Suicidal Ideation: Denies at present Homicidal Ideation: Denies HI Hallucinations: Denies Delusions: None elicited Impulse Control: Impaired Insight and Judgment: Limited insight and judgment Memory: Limited Attention: Limited Orientation: Alert, oriented Assessment and Plan (1)Major Depressive Disorder TREATMENT PLAN Patient admitted for inpatient psychiatric evaluation, medication adjustment and close monitoring The patient's behavior, mood, sleep and appetite will be closely monitored. Patient enrolled in individual and group therapeutic sessions and encouraged to attend. Patient provided with a safe and structured environment. Patient's physical health needs will be addressed by the Hospitalist. Hospitalist Consulted Labs including CBC, CMP, Lipid profile and Hemoglobin A1C levels ordered for baseline reference No changes made Social Assessment will be completed and the Rigging Worker will work with patient and family to ensure a suitable and safe disposition Medication adjustment will be made as clinically indicated Usual Wellness [place]ahaoism/Preservation: - Start Trazodone 50 mg po QHS & 50 mg po QHS PRN between 10 PM & 2 AM for insomnia - Start Melatonin 5 mg po QHS to promote circadian rhythm - Start [place]-3 for brain health, reduce impulsivity, and as adjunctive treatment for mood disorder, continue upon discharge given overall benefits. - Start B1 prophylaxis with 200 mg po for 5 days The patient agreed on the treatment plan, understood the risk, benefit, alternative treatment, potential consequence of no treatment, and gave informed consent. Estimated days: 6 Post hospital care: primary care provider, psychiatric provider Medications and Allergies Allergies Allergy/AdvReac Type Severity Reaction Status Date / Time No Known Drug Allergies Allergy Unknown Verified 03/09/20 22:55 Home Medications Medication Instructions Recorded Confirmed Last Taken Type Duloxetine HCl [Drizalma Sprinkle] 60 mg PO DAILY 03/09/20 12/26/20 Unknown History [place] Carbonate [Eskalith] 300 mg PO BID 03/09/20 12/26/20 Unknown History Metoprolol Xl [Metoprolol 25 mg PO QDAY 03/09/20 12/26/20 Unknown History SUCCINATE ER TAB] Paliperidone Palmitate [Invega 156 mg IM QMONTH 03/09/20 12/26/20 Unknown History Sustenna] traZODone [Desyrel] 100 mg PO QHS 03/09/20 12/26/20 Unknown History Albuterol Sulfate [Proventil Hfa] 8.5 gm IH Q4HR PRN 12/26/20 12/26/20 Unknown History Fluticasone Propion/Salmeterol 1 each IH DAILY 12/26/20 12/26/20 Unknown History [Fluticasone-Salmeterol 250-50] Furosemide [Lasix] 10 mg PO QDAY 12/26/20 12/26/20 Unknown History Meclizine HCl [Motion Sickness] 25 mg PO TID PRN 12/26/20 12/26/20 Unknown History Mirtazapine [Remeron] 30 mg PO HS 12/26/20 12/26/20 Unknown History Montelukast [Singulair] 10 mg PO DAILY 12/26/20 12/26/20 Unknown History Potassium Chloride [K-Dur] 20 meq PO BID 12/26/20 12/26/20 Unknown History Triamterene/Hydrochlorothiazid 1 tab PO DAILY 12/26/20 12/26/20 Unknown History [Triamterene-Hctz 37.5-25 mg Tb] Venlafaxine HCl [Venlafaxine HCl 150 mg PO DAILY 12/26/20 12/26/20 Unknown History ER] glipiZIDE [Glucotrol] 10 mg PO DAILY 12/26/20 12/26/20 Unknown History hydrOXYzine PAMOATE [Vistaril] 25 mg PO DAILY 12/26/20 12/26/20 Unknown History metFORMIN [Glucophage] 500 mg PO BID 12/26/20 12/26/20 Unknown History risperiDONE [RisperDAL] 1 mg PO BID 12/26/20 12/26/20 Unknown History Active Meds: Active Medications Acetaminophen (Acetaminophen 325 Mg Tab) 650 mg PO Q6H PRN PRN Reason: Pain, Mild (1-3) Last Admin: 12/28/20 12:49 Dose: 650 mg Documented by: Arformoterol Tartrate (Arformoterol 15 Mcg/2 Ml Nebu) 15 mcg IH Q12HRT [facility] Last Admin: 12/29/20 21:50 Dose: Not Given Documented by: Budesonide (Budesonide 0.5 Mg/2 Ml Nebu) 0.5 mg IH Q12HRT [facility] Last Admin: 12/29/20 21:50 Dose: Not Given Documented by: Duloxetine HCl (Duloxetine 30 Mg Cap) 60 mg PO DAILY [facility] Last Admin: 12/30/20 09:42 Dose: 60 mg Documented by: Furosemide (Furosemide 20 Mg Tab) 10 mg PO QDAY [facility] Last Admin: 12/30/20 09:43 Dose: 10 mg Documented by: [place] Carbonate ([place] Carbonate 300 Mg Cap) 300 mg PO BID [facility] Last Admin: 12/30/20 21:05 Dose: 300 mg Documented by: Meclizine HCl (Meclizine 25 Mg Tab) 25 mg PO TID PRN PRN Reason: dizziness Last Admin: 12/30/20 09:42 Dose: 25 mg Documented by: Metformin HCl (Metformin 500 Mg Tab) 500 mg PO BIDDIAB [facility] Last Admin: 12/30/20 17:50 Dose: 500 mg Documented by: Metoprolol Succinate (Metoprolol Succinate Xl 25 Mg Tab) 25 mg PO QDAY [facility] Last Admin: 12/30/20 09:42 Dose: 25 mg Documented by: Mirtazapine (Mirtazapine 30 Mg Tab) 30 mg PO HS [facility] Last Admin: 12/30/20 21:06 Dose: 30 mg Documented by: Montelukast Sodium (Montelukast 10 Mg Tab) 10 mg PO DAILY [facility] Last Admin: 12/30/20 09:43 Dose: 10 mg Documented by: Nicotine (Nicotine 21 Mg/24 Hr Patch) 21 mg TD QDAY [facility] Last Admin: 12/30/20 09:43 Dose: Not Given Documented by: Potassium Chloride (Potassium Chloride Er 20 Meq Tab) 20 meq PO BID [facility] Last Admin: 12/30/20 21:06 Dose: Not Given Documented by: Risperidone (Risperidone 1 Mg Tab) 1 mg PO BID [facility] Last Admin: 12/30/20 21:06 Dose: 1 mg Documented by: Trazodone HCl (Trazodone 100 Mg Tab) 100 mg PO QHS [facility] Last Admin: 12/30/20 21:04 Dose: 100 mg Documented by: Results - Results Labs/Vitals: Laboratory Last Values WBC 8.8 K/mm3 (4.5-11.0) 12/26/20 23:10 RBC 4.39 M/mm3 (3.65-5.03) 12/26/20 23:10 Hgb 13.0 gm/dl (10.1-14.3) 12/26/20 23:10 Hct 39.0 % (30.3-42.9) 12/26/20 23:10 MCV 89 fl (79-97) 12/26/20 23:10 MCH 30 pg (28-32) 12/26/20 23:10 MCHC 33 % (30-34) 12/26/20 23:10 RDW 13.7 % (13.2-15.2) 12/26/20 23:10 Plt Count 253 K/mm3 (140-440) 12/26/20 23:10 Lymph % (Auto) 25.5 % (13.4-35.0) 12/26/20 23:10 [place] % (Auto) 9.1 % (0.0-7.3) H 12/26/20 23:10 Eos % (Auto) 4.8 % (0.0-4.3) H 12/26/20 23:10 Baso % (Auto) 0.8 % (0.0-1.8) 12/26/20 23:10 Lymph # (Auto) 2.2 K/mm3 (1.2-5.4) 12/26/20 23:10 [place] # (Auto) 0.8 K/mm3 (0.0-0.8) 12/26/20 23:10 Eos # (Auto) 0.4 K/mm3 (0.0-0.4) 12/26/20 23:10 Baso # (Auto) 0.1 K/mm3 (0.0-0.1) 12/26/20 23:10 Seg Neutrophils % 59.8 % (40.0-70.0) 12/26/20 23:10 Seg Neutrophils # 5.2 K/mm3 (1.8-7.7) 12/26/20 23:10 Sodium 141 mmol/L (137-145) 12/26/20 23:10 Potassium 3.7 mmol/L (3.6-5.0) 12/26/20 23:10 Chloride 104.2 mmol/L (98-107) 12/26/20 23:10 Carbon Dioxide 30 mmol/L (22-30) 12/26/20 23:10 Anion Gap 11 mmol/L 12/26/20 23:10 BUN 9 mg/dL (7-17) 12/26/20 23:10 Creatinine 0.7 mg/dL (0.6-1.2) 12/26/20 23:10 Estimated GFR > 60 ml/min 12/26/20 23:10 BUN/Creatinine Ratio 13 % 12/26/20 23:10 Glucose 167 mg/dL (65-100) H 12/26/20 23:10 POC Glucose 117 mg/dL (70-105) H 12/31/20 07:19 Hemoglobin A1c 7.6 % (4-6) H 12/26/20 23:10 Calcium 8.8 mg/dL (8.4-10.2) 12/26/20 23:10 Total Bilirubin 0.20 mg/dL (0.1-1.2) 12/26/20 23:10 AST 16 units/L (5-40) 12/26/20 23:10 ALT 24 units/L (7-56) 12/26/20 23:10 Alkaline Phosphatase 100 units/L (35-129) 12/26/20 23:10 Total Protein 5.9 g/dL (6.3-8.2) L 12/26/20 23:10 Albumin 3.3 g/dL (3.9-5) L 12/26/20 23:10 Albumin/Globulin Ratio 1.3 % 12/26/20 23:10 Triglycerides 100 mg/dL (2-149) 12/26/20 23:10 Cholesterol 122 mg/dL (50-199) 12/26/20 23:10 LDL Cholesterol Direct 78 mg/dL (50-130) 12/26/20 23:10 HDL Cholesterol 36 mg/dL (40-59) L 12/26/20 23:10 Cholesterol/HDL Ratio 3.38 % 12/26/20 23:10 TSH 2.540 mlU/mL (0.270-4.200) 12/26/20 23:10 Hepatitis A IgM Ab Non-reactive (NonReactive) 12/26/20 23:10 Hep Bs Antigen Nonreactive (Negative) 12/26/20 23:10 Hep B Core IgM Ab Non-reactive (NonReactive) 12/26/20 23:10 Hepatitis C Antibody Non-reactive (NonReactive) 12/26/20 23:10 Last Vital Signs Temp 98.7 F 12/30/20 19:37 Pulse 53 L 12/30/20 19:37 Resp 16 12/30/20 19:37 BP 113/59 12/30/20 19:37 Pulse Ox 94 12/30/20 19:37
[2020-12-31] MEDS: metFORMIN 500 MG TAB PO SCH ×2 (08:59→18:05)
[2020-12-31] MEDS: NICOTINE 21 MG/24 HR PATCH TD SCH (09:00)
[2020-12-31] MEDS: FUROSEMIDE 20 MG TAB PO SCH (09:00)
[2020-12-31] MEDS: LITHIUM CARBONATE 300 MG CAP PO SCH ×2 (09:00→21:17)
[2020-12-31] MEDS: DULoxetine 30 MG CAP PO SCH (09:00)
[2020-12-31] MEDS: risperiDONE 1 MG TAB PO SCH ×2 (09:00→21:18)
[2020-12-31] MEDS: MONTELUKAST 10 MG TAB PO SCH (09:00)
[2020-12-31] MEDS: METOPROLOL SUCCINATE XL 25 MG TAB PO SCH (09:01)
[2020-12-31] MEDS: POTASSIUM CHLORIDE ER 20 MEQ TAB PO SCH ×2 (09:01→21:18)
[2020-12-31] MEDS: BUDESONIDE 0.5 MG/2 ML NEBU IH SCH ×3 (11:30→11:55)
[2020-12-31] MEDS: ARFORMOTEROL 15 MCG/2 ML NEBU IH SCH ×2 (11:30→11:54)
[2020-12-31 17:09] LABS: BUN/Creatinine Ratio 17; Blood Urea Nitrogen 10 mg/dL (7-17); Calcium 9.5 mg/dL (8.4-10.2); Hemolysis Index 14
[2020-12-31] MEDS: MIRTAZAPINE 30 MG TAB PO SCH (21:17)
[2020-12-31] MEDS: traZODone 100 MG TAB PO SCH (21:17)
[2021-01-01] MEDS: metFORMIN 500 MG TAB PO SCH ×2 (08:55→17:32)
[2021-01-01] MEDS: METOPROLOL SUCCINATE XL 25 MG TAB PO SCH (09:00)
[2021-01-01] MEDS: DULoxetine 30 MG CAP PO SCH (09:02)
[2021-01-01] MEDS: LITHIUM CARBONATE 300 MG CAP PO SCH ×2 (09:02→21:51)
[2021-01-01] MEDS: MONTELUKAST 10 MG TAB PO SCH (09:02)
[2021-01-01] MEDS: FUROSEMIDE 20 MG TAB PO SCH (09:02)
[2021-01-01] MEDS: POTASSIUM CHLORIDE ER 20 MEQ TAB PO SCH ×2 (09:02→21:53)
[2021-01-01] MEDS: risperiDONE 1 MG TAB PO SCH ×2 (09:03→21:52)
[2021-01-01] MEDS: NICOTINE 21 MG/24 HR PATCH TD SCH (09:03)
--- NOTE | 2021-01-01 10:04 | Discharge Summary ---
Providers - Providers Date of Admission: 12/26/20 14:46 Date of discharge: 01/01/21 Attending physician: KIRT FUNG MD 12/26/20 07:40 Consult to Physician [CONS] Routine Comment: Consulting Provider: AMAURY CANSECO Physician Instructions: Reason For Exam: manage existing conditions Primary care physician: RADIOLOGY SERVICES MANAGER Hospitalization Reason for admission: depression Admitting Diagnosis: F25.9 - SCHIZOAFFECTIVE DISORDER, UNSPECIFIED Condition: Stable Hospital course: The patient was provided inpatient psychiatric treatment with safe and supportive care, medication adjustment, adverse effect monitoring, medical evaluations, medical treatments, assessment and psycho-education. The patient's mood, cognition, behavior, moral support are improved and stabilized. St the time of discharge, the patient had no endangering behavior and no debilitating adverse effects. The patient agreed on potential consequences of no treatment and gave informed consent. 12/27 Kylah Kee is a 60y/o female patient today. She is a/o x 3. The patient says she is depressed. She says she is suicidal and homeless. The patient says but "my main problem is being homeless. My mother put me out." The patient verbalizes heaing voices of her father saying "God bless your heart." She denies illicit drug use, alcohol or nicotine. The patient says she has a history of bipolar and has been taking her medications. Staff says the patient is easily irritable and provoking other patients. 12/28 The patient was seen today. She is calm and cooperative. The patient says she slept well. She denies SI/HI, but says she's more concerned with not having a place to live and this is what makes her feel this way. She verbalizes hearing a voice that says "God bless your heart." She says "it's coming from up above." 12/29 The patient was seen today. She is in the dayroom sleeping. She says she feels pretty optimistic about the situation. She denies SI/HI or hallucinations. The patient says "it's not having a place to go that gives me thoughts." She verbalize still hearing the voice that says "God, bless your heart." 12/30 The patient was seen today. She is awake. She is calm and cooperative. She says she feels better, but still hearing voices telling her "God, bless your heart." The patient will discharge once the sets up outpatient resources to ensue continuity of mental wellness. 12/31 The patient was seen today. She is awake. She is calm and cooperative. She states she is ready to go home. She denies SI/HI. She still hears the voice saying "God bless your heart" which she says is her baseline. 01/01 The patient was seen today. She is resting quietly in the dayroom. She says she feels good and feels good about her future. She denies SI/HI. She says "I still hear God, bless your heart" but says "that's my baseline. I've always heard that." Disposition: 01 HOME / SELF CARE / HOMELESS Time spent for discharge: 35 Allergies/Adverse Reactions: Allergies No Known Drug Allergies Allergy (Verified 03/09/20 22:55) Unknown Vital Signs: Last Vital Signs Temp 98.7 F 01/01/21 07:34 Pulse 61 01/01/21 09:00 Resp 20 01/01/21 07:34 BP 99/49 01/01/21 09:00 Pulse Ox 95 12/31/20 20:09 Last Lab: Laboratory Last Values WBC 8.8 K/mm3 (4.5-11.0) 12/26/20 23:10 RBC 4.39 M/mm3 (3.65-5.03) 12/26/20 23:10 Hgb 13.0 gm/dl (10.1-14.3) 12/26/20 23:10 Hct 39.0 % (30.3-42.9) 12/26/20 23:10 MCV 89 fl (79-97) 12/26/20 23:10 MCH 30 pg (28-32) 12/26/20 23:10 MCHC 33 % (30-34) 12/26/20 23:10 RDW 13.7 % (13.2-15.2) 12/26/20 23:10 Plt Count 253 K/mm3 (140-440) 12/26/20 23:10 Lymph % (Auto) 25.5 % (13.4-35.0) 12/26/20 23:10 Amelia % (Auto) 9.1 % (0.0-7.3) H 12/26/20 23:10 Eos % (Auto) 4.8 % (0.0-4.3) H 12/26/20 23:10 Baso % (Auto) 0.8 % (0.0-1.8) 12/26/20 23:10 Lymph # (Auto) 2.2 K/mm3 (1.2-5.4) 12/26/20 23:10 Amelia # (Auto) 0.8 K/mm3 (0.0-0.8) 12/26/20 23:10 Eos # (Auto) 0.4 K/mm3 (0.0-0.4) 12/26/20 23:10 Baso # (Auto) 0.1 K/mm3 (0.0-0.1) 12/26/20 23:10 Seg Neutrophils % 59.8 % (40.0-70.0) 12/26/20 23:10 Seg Neutrophils # 5.2 K/mm3 (1.8-7.7) 12/26/20 23:10 Sodium 138 mmol/L (137-145) 12/31/20 16:28 Potassium 4.1 mmol/L (3.6-5.0) 12/31/20 16:28 Chloride 101.1 mmol/L (98-107) 12/31/20 16:28 Carbon Dioxide 31 mmol/L (22-30) H 12/31/20 16:28 Anion Gap 10 mmol/L 12/31/20 16:28 BUN 10 mg/dL (7-17) 12/31/20 16:28 Creatinine 0.6 mg/dL (0.6-1.2) 12/31/20 16:28 Estimated GFR > 60 ml/min 12/31/20 16:28 BUN/Creatinine Ratio 17 % 12/31/20 16:28 Glucose 185 mg/dL (65-100) H 12/31/20 16:28 POC Glucose 123 mg/dL (70-105) H 01/01/21 07:08 Hemoglobin A1c 7.6 % (4-6) H 12/26/20 23:10 Calcium 9.5 mg/dL (8.4-10.2) 12/31/20 16:28 Total Bilirubin 0.20 mg/dL (0.1-1.2) 12/26/20 23:10 AST 16 units/L (5-40) 12/26/20 23:10 ALT 24 units/L (7-56) 12/26/20 23:10 Alkaline Phosphatase 100 units/L (35-129) 12/26/20 23:10 Total Protein 5.9 g/dL (6.3-8.2) L 12/26/20 23:10 Albumin 3.3 g/dL (3.9-5) L 12/26/20 23:10 Albumin/Globulin Ratio 1.3 % 12/26/20 23:10 Triglycerides 100 mg/dL (2-149) 12/26/20 23:10 Cholesterol 122 mg/dL (50-199) 12/26/20 23:10 LDL Cholesterol Direct 78 mg/dL (50-130) 12/26/20 23:10 HDL Cholesterol 36 mg/dL (40-59) L 12/26/20 23:10 Cholesterol/HDL Ratio 3.38 % 12/26/20 23:10 TSH 2.540 mlU/mL (0.270-4.200) 12/26/20 23:10 Phenytoin 1.2 ug/mL (10.0-20.0) L 12/31/20 16:28 Hepatitis A IgM Ab Non-reactive (NonReactive) 12/26/20 23:10 Hep Bs Antigen Nonreactive (Negative) 12/26/20 23:10 Hep B Core IgM Ab Non-reactive (NonReactive) 12/26/20 23:10 Hepatitis C Antibody Non-reactive (NonReactive) 12/26/20 23:10 Core Measure Documentation - Palliative Care Palliative Care/ Comfort Measures: Not Applicable - Core Measures Any of the following diagnoses?: none Exam - Constitutional Vitals: Temp Pulse Resp BP Pulse Ox 98.7 F 61 20 99/49 95 01/01/21 07:34 01/01/21 09:00 01/01/21 07:34 01/01/21 09:00 12/31/20 20:09 - EENT Eyes: Present: PERRL, EOM intact ENT: hearing intact, clear oral mucosa - Neck Neck: Present: supple, normal ROM - Respiratory Respiratory effort: normal Plan Activity: advance as tolerated Weight Bearing Status: Weight Bear as Tolerated Care Plan Goals: Maintain good and stable health Assessment: Schizoaffective Disorder Follow up with: PRIMARY CARE, [Primary Care Provider] - 7 Days Prescriptions: traZODone [Desyrel] 100 mg PO QHS #30 Nicotine [Habitrol] 21 mg TD QDAY #30 patch Potassium Chloride [K-Dur] 20 meq PO BID #60 Furosemide [Lasix TAB] 10 mg PO QDAY #30 Mirtazapine [Remeron] 30 mg PO HS #30 risperiDONE [RisperDAL] 1 mg PO BID #60 tablet
[2021-01-01] MEDS: ARFORMOTEROL 15 MCG/2 ML NEBU IH SCH ×3 (10:25→20:35)
[2021-01-01] MEDS: BUDESONIDE 0.5 MG/2 ML NEBU IH SCH ×3 (10:25→20:35)
[2021-01-01] MEDS: MIRTAZAPINE 30 MG TAB PO SCH (21:51)
[2021-01-01] MEDS: traZODone 100 MG TAB PO SCH (21:52)
[2021-01-02] MEDS: metFORMIN 500 MG TAB PO SCH (08:18)
[2021-01-02] MEDS: DULoxetine 30 MG CAP PO SCH (09:02)
[2021-01-02] MEDS: POTASSIUM CHLORIDE ER 20 MEQ TAB PO SCH (09:02)
[2021-01-02] MEDS: NICOTINE 21 MG/24 HR PATCH TD SCH (09:02)
[2021-01-02] MEDS: LITHIUM CARBONATE 300 MG CAP PO SCH (09:02)
[2021-01-02] MEDS: MONTELUKAST 10 MG TAB PO SCH (09:02)
[2021-01-02] MEDS: FUROSEMIDE 20 MG TAB PO SCH (09:03)
[2021-01-02] MEDS: METOPROLOL SUCCINATE XL 25 MG TAB PO SCH (09:11)
[2021-01-02 09:12] VITALS: BP 100/56
[2021-01-02] MEDS: risperiDONE 1 MG TAB PO SCH (09:13)
[2021-01-02] MEDS: ARFORMOTEROL 15 MCG/2 ML NEBU IH SCH (09:40)
[2021-01-02] MEDS: BUDESONIDE 0.5 MG/2 ML NEBU IH SCH (09:41)
== END 2021-01-02 09:12 | disposition home or self-care (01) | DRG 885 ==
LOC: 3A 05:37 → UNDOADMIN 05:37 → 5A 14:46
PROVIDERS: ADMIT Psychiatry & Neurology Psychiatry; ATTEND Psychiatry & Neurology Psychiatry
DX: F25.9 Schizoaffective disorder, unspecified (principal); Z68.43 Body mass index [BMI] 50.0-59.9, adult; R45.851 Suicidal ideations; F32.9 Major depressive disorder, single episode, unspecified; E66.01 Morbid (severe) obesity due to excess calories; I45.6 Pre-excitation syndrome; J44.9 Chronic obstructive pulmonary disease, unspecified; E11.9 Type 2 diabetes mellitus without complications; I11.0 Hypertensive heart disease with heart failure; I50.9 Heart failure, unspecified; Z82.49 Family history of ischemic heart disease and other diseases of the circulatory system; Z59.0 Homelessness; Z79.84 Long term (current) use of oral hypoglycemic drugs; I95.9 Hypotension, unspecified
CPT/HCPCS: 36415; 80048; 80053; 80061; 80074; 80185; 82962; 83036; 84443; 85025; 94640; G0378

== ENCOUNTER 2021-08-04 12:50 | Inpatient (IN) | payer MEDICARE ==
--- NOTE | 2021-08-05 08:32 | Consultation ---
History of Present Illness - History of Present Illness Kylah Macias 61-year-old female with past medical history of hypertension, type 2 diabetes, WPW, congestive heart failure, chronic vertigo, asthma/COPD, nephrolithiasis presenting to our facility with complaint of suicidal ideation. Patient is admitted to the geriatric psychiatry unit. IMS consulted for medical management. On my encounter the patient had no acute complaints. I asked her what medications she takes for her chronic conditions which she stated she cannot recall however her medications were all in a bag that she brought with her. She states that there is a Dr. Forde that feels these medications for her in [place], [place]. She follows with a "Dr. Tavera" for her psychiatric needs in [facility]. Remainder of ROS negative PMHx: history of hypertension, type 2 diabetes, WPW, congestive heart failure, chronic vertigo, asthma/COPD, nephrolithiasis PSHx: Ablation for WPW x 3 yrs ago, cholecystectomy, D&C FHx: Reviewed noncontributory SHx: Tobacco use-1 to 3 pack/day ETOH Use-quit 15 years ago Recreational Drug Use-denies Occupation-unemployed Living situationhomeless, estranged from family Medications and Allergies Allergies Allergy/AdvReac Type Severity Reaction Status Date / Time No Known Drug Allergies Allergy Unknown Verified 03/09/20 22:55 Home Medications Medication Instructions Recorded Confirmed Last Taken Type Duloxetine HCl [Drizalma Sprinkle] 60 mg PO DAILY 03/09/20 12/26/20 Unknown History [place] Carbonate [Eskalith] 300 mg PO BID 03/09/20 08/05/21 Unknown History Metoprolol Xl [Metoprolol 25 mg PO QDAY 03/09/20 12/26/20 Unknown History SUCCINATE ER TAB] Paliperidone Palmitate [Invega 156 mg IM QMONTH 03/09/20 12/26/20 Unknown History Sustenna] Albuterol Sulfate [Proventil Hfa] 8.5 gm IH Q4HR PRN 12/26/20 12/26/20 Unknown History Fluticasone Propion/Salmeterol 1 each IH DAILY 12/26/20 08/05/21 Unknown History [Fluticasone-Salmeterol 250-50] Meclizine HCl [Motion Sickness] 25 mg PO TID PRN 12/26/20 08/05/21 Unknown History Montelukast [Singulair] 10 mg PO DAILY 12/26/20 12/26/20 Unknown History Triamterene/Hydrochlorothiazid 1 tab PO DAILY 12/26/20 12/26/20 Unknown History [Triamterene-Hctz 37.5-25 mg Tb] Venlafaxine HCl [Venlafaxine HCl 150 mg PO DAILY 12/26/20 12/26/20 Unknown History ER] glipiZIDE [Glucotrol] 10 mg PO DAILY 12/26/20 12/26/20 Unknown History hydrOXYzine PAMOATE [Vistaril] 25 mg PO DAILY 12/26/20 12/26/20 Unknown History metFORMIN [Glucophage] 500 mg PO BID 12/26/20 12/26/20 Unknown History risperiDONE [RisperDAL] 1 mg PO BID 12/26/20 12/26/20 Unknown History Furosemide [Lasix TAB] 10 mg PO QDAY #30 01/01/21 Unknown Rx Mirtazapine [Remeron] 30 mg PO HS #30 01/01/21 Unknown Rx Nicotine [Habitrol] 21 mg TD QDAY #30 patch 01/01/21 Unknown Rx Potassium Chloride [K-Dur] 20 meq PO BID #60 01/01/21 Unknown Rx risperiDONE [RisperDAL] 1 mg PO BID #60 tablet 01/01/21 Unknown Rx traZODone [Desyrel] 100 mg PO QHS #30 01/01/21 Unknown Rx Gabapentin 300 mg PO TID 08/05/21 08/05/21 Unknown History [place] Carbonate 300 mg PO BID 08/05/21 08/05/21 Unknown History Meclizine [Antivert] 25 mg PO TID PRN 08/05/21 08/05/21 Unknown History OLANZapine [Zyprexa] 20 mg PO HS 08/05/21 08/05/21 Unknown History Quetiapine Fumarate [SEROquel] 50 mg PO HS 08/05/21 Unknown History hydrOXYzine pamoate [Hydroxyzine 1 cap PO TID PRN 08/05/21 08/05/21 Unknown History Pamoate] metFORMIN [Glucophage] 500 mg PO BID 08/05/21 08/05/21 Unknown History Review of Systems All systems: negative (For stated in HPI) Exam - Physical Exam Narrative exam: Physical Exam: VITAL SIGNS: Reviewed. GENERAL: The patient appears normally developed, Vital signs as documented. Elevated BMI greater than 50 HEAD: No signs of head trauma. EYES: Pupils are equal. Extraocular motions intact. EARS: Hearing grossly intact. MOUTH: Oropharynx is normal. NECK: No adenopathy, no JVD. CHEST: Chest with clear breath sounds bilaterally. No wheezes, rales, or rhonchi. CARDIAC: Regular rate and rhythm. S1 and S2, without murmurs, gallops, or rubs. VASCULAR: No Edema. Peripheral pulses normal and equal in all extremities. ABDOMEN: Soft, non tender and non distended. No rebound or guarding, and no masses palpated. Bowel Sounds normal. MUSCULOSKELETAL: Good range of motion of all major joints. Extremities without clubbing, cyanosis or edema. NEUROLOGIC EXAM: Alert and oriented x 4. no focal sensory or strength deficits. PSYCHIATRIC: Depressed SKIN: detail exam as documented in skin assessment - Constitutional Vitals: Temp Pulse Resp BP Pulse Ox 98.4 F 75 18 119/77 94 08/04/21 22:00 08/04/21 22:00 08/04/21 22:00 08/04/21 22:00 08/04/21 22:00 Results - Labs CBC & Chem 7: 08/05/21 11:05 Assessment and Plan #Suicidal ideation #Essential hypertension #Type 2 diabetes #History of congestive heart failure, unspecified ejection fraction #Xrlpu-Uauvazpil-Kxnof syndrome status post ablation #Chronic vertigo #Asthma/COPD #History of nephrolithiasis #Morbid obesity +15-minute behavioral health counseling given on healthy diet and exercise. #Nicotine abuse +15-minute nicotine/smoking cessation counseling given which included quitting strategies and local community resources. #Advance care planning Disease education conducted, care plan discussed, diagnoses discussed, prognosis discussed, patient is full code, patient acknowledges understanding and agree with care plan, +30 minutes. Plan -Psychiatric medication management per inpatient psych service -Monitor blood pressure daily, vital signs reviewed -[facility] ACHS -Check CBC, CMP, lipid panel, TSH, hemoglobin A1c. -Resume home medications: Metoprolol XL 25 mg p.o. daily, triamtereneHCTZ 37.5- 25 mg p.o. daily, Lasix 20 mg p.o. daily, montelukast, gabapentin, meclizine Hold home diabetes medication: Metformin and glipizide -Agree with Pulmicort, Brovana, albuterol for COPD management -Sliding scale coverage -Monitor QTC while on psychiatric medications
[2021-08-05] MEDS ORDERED: ALBUTEROL 8.5 GM MDI INHALATION IH PRN (09:06)
--- NOTE | 2021-08-05 09:06 | History and Physical Report ---
GP History & Physical - History of Present Illness Date of admission: 08/04/21 Date of Examination: 08/05/21 Reason for Admission: Danger to self, Danger to others Chief Complaint: suicidal ideation History of Present Illness: The patient is a 61 year old female with history of Bipolar, Schizophrenia Schizoaffective, and BPD who was admitted for stabilization. The patient is calm, alert and oriented x3. She reports ongoing depression and suicidal attempts x3 since this year. The patient reports that she was discharged from a [facility] [place] 2 weeks ago. She reports stressor such as homelessness. She endorses suicidal ideation with a plan to overdose on pills. The patient admits having non-commanding auditory hallucinations states "voices saying God bless your heart." She denies visual hallucinations. Diagnoses: Bipolar, Schizophrenia Schizoaffective, BPD Suicide attempts or Self-harm behavior: yes Prior psychiatric hospitalizations: Yes Substance Abuse history: Cocaine, thc Previous psychiatric medications tried: Unable to recall Outpatient treatment: None reported PAST MEDICAL HISTORY: None reported Family Psychiatric History: Arthritis, COPD, Diabetes mellitus, Hypertension, Morbid obesity SOCIAL HISTORY Marital Status: Single Living Arrangements: Homeless Employment Status: Unemployed Access to guns/weapons: None report Education: High school History of Abuse: Yes Legal History: None reported REVIEW OF SYSTEMS Constitutional: Negative for weight loss ENT: Negative for stridor Respiratory: Negative for cough or hemoptysis All other systems reviewed and are negative MENTAL STATUS EXAMINATION General Appearance and Behavior: Age appropriate, good hygiene, wearing appropriate clothes, calm and cooperative Cooperation: cooperative Psychomotor Behavior: Psychomotor normal Mood: depressed Affect and affective range: Congruent Thought Process: Goal directed Thought Content: Suicidal Speech: Normal rate, volume and rhythm Suicidal Ideation: Yes Homicidal Ideation: Denies HI Hallucinations: Auditory Delusions: None elicited Impulse Control: Impaired Insight and Judgment: Limited insight and judgment Memory: Limited Attention: Limited Orientation: Alert, oriented Assessment and Plan (1)Schizoaffective Disorder TREATMENT PLAN Patient admitted for inpatient psychiatric evaluation, medication adjustment and close monitoring The patient's behavior, mood, sleep and appetite will be closely monitored. Patient enrolled in individual and group therapeutic sessions and encouraged to attend. Patient provided with a safe and structured environment. Patient's physical health needs will be addressed by the Hospitalist. Hospitalist Consulted Labs including CBC, CMP, Lipid profile and Hemoglobin A1C levels ordered for baseline reference Continue Home medications Social Assessment will be completed and the Freezer Person will work with patient and family to ensure a suitable and safe disposition Medication adjustment will be made as clinically indicated Usual Wellness Synagogue/Preservation: - Start Trazodone 50 mg po QHS & 50 mg po QHS PRN between 10 PM & 2 AM for insomnia - Start Melatonin 5 mg po QHS to promote circadian rhythm - Start [place]-3 for brain health, reduce impulsivity, and as adjunctive treatment for mood disorder, continue upon discharge given overall benefits. - Start B1 prophylaxis with 200 mg po for 5 days The patient agreed on the treatment plan, understood the risk, benefit, alternative treatment, potential consequence of no treatment, and gave informed consent. Estimated days: 7 Post hospital care: primary care provider, psychiatric provider Legal Status: Voluntary Medications and Allergies Allergies Allergy/AdvReac Type Severity Reaction Status Date / Time No Known Drug Allergies Allergy Unknown Verified 03/09/20 22:55 Home Medications Medication Instructions Recorded Confirmed Last Taken Type Duloxetine HCl [Drizalma Sprinkle] 60 mg PO DAILY 03/09/20 12/26/20 Unknown History [place] Carbonate [Eskalith] 300 mg PO BID 03/09/20 08/05/21 Unknown History Metoprolol Xl [Metoprolol 25 mg PO QDAY 03/09/20 12/26/20 Unknown History SUCCINATE ER TAB] Paliperidone Palmitate [Invega 156 mg IM QMONTH 03/09/20 12/26/20 Unknown History Sustenna] Albuterol Sulfate [Proventil Hfa] 8.5 gm IH Q4HR PRN 12/26/20 12/26/20 Unknown History Fluticasone Propion/Salmeterol 1 each IH DAILY 12/26/20 08/05/21 Unknown History [Fluticasone-Salmeterol 250-50] Meclizine HCl [Motion Sickness] 25 mg PO TID PRN 12/26/20 08/05/21 Unknown History Montelukast [Singulair] 10 mg PO DAILY 12/26/20 12/26/20 Unknown History Triamterene/Hydrochlorothiazid 1 tab PO DAILY 12/26/20 12/26/20 Unknown History [Triamterene-Hctz 37.5-25 mg Tb] Venlafaxine HCl [Venlafaxine HCl 150 mg PO DAILY 12/26/20 12/26/20 Unknown History ER] glipiZIDE [Glucotrol] 10 mg PO DAILY 12/26/20 12/26/20 Unknown History hydrOXYzine PAMOATE [Vistaril] 25 mg PO DAILY 12/26/20 12/26/20 Unknown History metFORMIN [Glucophage] 500 mg PO BID 12/26/20 12/26/20 Unknown History risperiDONE [RisperDAL] 1 mg PO BID 12/26/20 12/26/20 Unknown History Furosemide [Lasix TAB] 10 mg PO QDAY #30 01/01/21 Unknown Rx Mirtazapine [Remeron] 30 mg PO HS #30 01/01/21 Unknown Rx Nicotine [Habitrol] 21 mg TD QDAY #30 patch 01/01/21 Unknown Rx Potassium Chloride [K-Dur] 20 meq PO BID #60 01/01/21 Unknown Rx risperiDONE [RisperDAL] 1 mg PO BID #60 tablet 01/01/21 Unknown Rx traZODone [Desyrel] 100 mg PO QHS #30 01/01/21 Unknown Rx Gabapentin 300 mg PO TID 08/05/21 08/05/21 Unknown History [place] Carbonate 300 mg PO BID 08/05/21 08/05/21 Unknown History Meclizine [Antivert] 25 mg PO TID PRN 08/05/21 08/05/21 Unknown History OLANZapine [Zyprexa] 20 mg PO HS 08/05/21 08/05/21 Unknown History Quetiapine Fumarate [SEROquel] 50 mg PO HS 08/05/21 Unknown History hydrOXYzine pamoate [Hydroxyzine 1 cap PO TID PRN 08/05/21 08/05/21 Unknown History Pamoate] metFORMIN [Glucophage] 500 mg PO BID 08/05/21 08/05/21 Unknown History Results - Results Labs/Vitals: Last Vital Signs Temp 98.4 F 08/04/21 22:00 Pulse 75 08/04/21 22:00 Resp 18 08/04/21 22:00 BP 119/77 08/04/21 22:00 Pulse Ox 94 08/04/21 22:00 Physical Examination - Constitutional Vitals: Vital Signs Temp Pulse Resp BP Pulse Ox 98.4 F 75 18 119/77 94 08/04/21 22:00 08/04/21 22:00 08/04/21 22:00 08/04/21 22:00 08/04/21 22:00 Temperature -Last 24 Hours Temperature 98.4 F Mental Status Exam - Vital signs Last Vital Signs Temp 98.4 F 08/04/21 22:00 Pulse 75 08/04/21 22:00 Resp 18 08/04/21 22:00 BP 119/77 08/04/21 22:00 Pulse Ox 94 08/04/21 22:00 Physician Certification - Certification Statement Physician Certification Statement: This is an acknowledgement statement that BLUE ETIENNE is a 61 year old F who requires inpatient psychiatric admission for treatment which could reasonably be expected to improve the patient's condition for Estimated period of time patient will need to remain in the hospital: [ ] Plan for post-hospital care: [ ]
[2021-08-05] MEDS ORDERED: MECLIZINE 25 MG TAB PO PRN ×2 (10:00→15:52)
[2021-08-05] MEDS ORDERED: glipiZIDE 10 MG TAB PO SCH (10:00)
[2021-08-05] MEDS: QUEtiapine 25 MG TAB PO SCH ×2 (10:34→21:30)
[2021-08-05] MEDS: carBAMazepine 200 MG TAB PO SCH ×2 (10:35→21:30)
[2021-08-05] MEDS: FUROSEMIDE 20 MG TAB PO SCH (10:37)
[2021-08-05 11:56] LABS: Alanine Aminotransferase 16 units/L (7-56); Albumin 3.8 g/dL (3.9-5); Blood Urea Nitrogen 7 mg/dL (7-17); Calcium 9.8 mg/dL (8.4-10.2); Chol/HDL Ratio 3.89 %; HDL Cholesterol 37 mg/dL (40-59); Hemolysis Index 2; LDL Cholesterol,Direct 92 mg/dL (50-130)
[2021-08-05 11:57] LABS: BUN/Creatinine Ratio 12
[2021-08-05] MEDS ORDERED: ALBUTEROL 2.5 MG/3 ML NEBU IH PRN (12:00)
[2021-08-05] MEDS: ARFORMOTEROL 15 MCG/2 ML NEBU IH SCH ×2 (15:43→20:52)
[2021-08-05] MEDS: BUDESONIDE 0.5 MG/2 ML NEBU IH SCH ×2 (15:43→20:52)
[2021-08-05] MEDS: GABAPENTIN 300 MG CAP PO SCH ×2 (15:56→21:32)
[2021-08-05] MEDS ORDERED: DEXTROSE 50% IN WATER (25GM) 50 ML SYRINGE IV PRN (15:56)
[2021-08-05] MEDS: METOPROLOL SUCCINATE XL 25 MG TAB PO SCH (16:43)
[2021-08-05] MEDS: MONTELUKAST 10 MG TAB PO SCH (16:44)
[2021-08-05] MEDS: INSULIN LISPRO 100 UNIT/ML SUB-Q SCH ×2 (16:45→21:38)
[2021-08-05] MEDS: hydrOXYzine PAMOATE 25 MG CAP PO PRN (21:29)
[2021-08-06] MEDS: INSULIN LISPRO 100 UNIT/ML SUB-Q SCH ×4 (08:32→21:17)
[2021-08-06] MEDS: GABAPENTIN 300 MG CAP PO SCH ×3 (08:45→20:49)
[2021-08-06] MEDS: FUROSEMIDE 20 MG TAB PO SCH (09:15)
[2021-08-06] MEDS: TRIAMTER/HCTZ 37.5-25 MG TAB PO SCH (09:15)
[2021-08-06] MEDS: METOPROLOL SUCCINATE XL 25 MG TAB PO SCH (09:16)
[2021-08-06] MEDS: QUEtiapine 25 MG TAB PO SCH ×2 (09:17→21:17)
[2021-08-06] MEDS: MONTELUKAST 10 MG TAB PO SCH (09:17)
[2021-08-06] MEDS: BUDESONIDE 0.5 MG/2 ML NEBU IH SCH ×2 (09:17→20:38)
[2021-08-06] MEDS: carBAMazepine 200 MG TAB PO SCH ×2 (09:17→21:17)
[2021-08-06] MEDS: ARFORMOTEROL 15 MCG/2 ML NEBU IH SCH ×2 (09:17→20:39)
--- NOTE | 2021-08-06 09:31 | Progress Note ---
Subjective Date of service: 08/06/21 Subjective Comment: 08/06/21: The patient was seen this morning. She continues to endorse depression rates as 7/10. She denies any current suicidal/homicidal ideation. She admits to having auditory hallucinations " God bless your heart." REVIEW OF SYSTEMS Constitutional: Negative for weight loss ENT: Negative for stridor Respiratory: Negative for cough or hemoptysis All other systems reviewed and are negative MENTAL STATUS EXAMINATION General Appearance and Behavior: Age appropriate, good hygiene, wearing appropriate clothes, good eye contact, calm, cooperative Cooperation: Participating/engaged, but Guarded Psychomotor Behavior: Psychomotor normal Mood:Depressed Affect and affective range: congruent Thought Process: Goal directed Thought Content: Reality oriented Speech: normal tone and pace Suicidal Ideation: Denies Homicidal Ideation: Denies Hallucinations: Auditory Delusions: None elicited Impulse Control: Limited Insight and Judgment: Limited insight and judgment Memory: Limited Attention: attentive Orientation: Alert, oriented Assessment and Plan Schizoaffective disorder Treatment Plan Patient admitted for inpatient psychiatric evaluation, medication adjustment and close monitoring The patient's behavior, mood, sleep and appetite will be closely monitored. Patient enrolled in individual and group therapeutic sessions and encouraged to attend. Patient provided with a safe and structured environment. Patient's physical health needs will be addressed by the Hospitalist. Hospitalist Consulted Labs including CBC, CMP, Lipid profile and Hemoglobin A1C levels ordered for baseline reference Social Assessment will be completed and the Power Sweeper Operator will work with patient and family to ensure a suitable and safe disposition Medication adjustment will be made as clinically indicated continue home meds Usual Wellness Worship/Preservation: - Start Trazodone 50 mg po QHS & 50 mg po QHS PRN between 10 PM & 2 AM for insomnia - Start Melatonin 5 mg po QHS to promote circadian rhythm The patient agreed on the treatment plan, understood the risk, benefit, alternative treatment, potential consequence of no treatment, and gave informed consent. Estimated days: 6 Post hospital care: primary care provider, psychiatric provider Case staffed with Dr. Solo Medications and Allergies Medications and Allergies Allergies Allergy/AdvReac Type Severity Reaction Status Date / Time No Known Drug Allergies Allergy Unknown Verified 03/09/20 22:55 Home Medications Medication Instructions Recorded Confirmed Last Taken Type Duloxetine HCl [Drizalma Sprinkle] 60 mg PO DAILY 03/09/20 12/26/20 Unknown History [place] Carbonate [Eskalith] 300 mg PO BID 03/09/20 08/05/21 Unknown History Metoprolol Xl [Metoprolol 25 mg PO QDAY 03/09/20 12/26/20 Unknown History SUCCINATE ER TAB] Paliperidone Palmitate [Invega 156 mg IM QMONTH 03/09/20 12/26/20 Unknown History Sustenna] Albuterol Sulfate [Proventil Hfa] 8.5 gm IH Q4HR PRN 12/26/20 12/26/20 Unknown History Fluticasone Propion/Salmeterol 1 each IH DAILY 12/26/20 08/05/21 Unknown History [Fluticasone-Salmeterol 250-50] Meclizine HCl [Motion Sickness] 25 mg PO TID PRN 12/26/20 08/05/21 Unknown History Montelukast [Singulair] 10 mg PO DAILY 12/26/20 12/26/20 Unknown History Triamterene/Hydrochlorothiazid 1 tab PO DAILY 12/26/20 12/26/20 Unknown History [Triamterene-Hctz 37.5-25 mg Tb] Venlafaxine HCl [Venlafaxine HCl 150 mg PO DAILY 12/26/20 12/26/20 Unknown History ER] glipiZIDE [Glucotrol] 10 mg PO DAILY 12/26/20 12/26/20 Unknown History hydrOXYzine PAMOATE [Vistaril] 25 mg PO DAILY 12/26/20 12/26/20 Unknown History metFORMIN [Glucophage] 500 mg PO BID 12/26/20 12/26/20 Unknown History risperiDONE [RisperDAL] 1 mg PO BID 12/26/20 12/26/20 Unknown History Furosemide [Lasix TAB] 10 mg PO QDAY #30 01/01/21 Unknown Rx Mirtazapine [Remeron] 30 mg PO HS #30 01/01/21 Unknown Rx Nicotine [Habitrol] 21 mg TD QDAY #30 patch 01/01/21 Unknown Rx Potassium Chloride [K-Dur] 20 meq PO BID #60 01/01/21 Unknown Rx risperiDONE [RisperDAL] 1 mg PO BID #60 tablet 01/01/21 Unknown Rx traZODone [Desyrel] 100 mg PO QHS #30 01/01/21 Unknown Rx Gabapentin 300 mg PO TID 08/05/21 08/05/21 Unknown History [place] Carbonate 300 mg PO BID 08/05/21 08/05/21 Unknown History Meclizine [Antivert] 25 mg PO TID PRN 08/05/21 08/05/21 Unknown History OLANZapine [Zyprexa] 20 mg PO HS 08/05/21 08/05/21 Unknown History Quetiapine Fumarate [SEROquel] 50 mg PO HS 08/05/21 Unknown History hydrOXYzine pamoate [Hydroxyzine 1 cap PO TID PRN 08/05/21 08/05/21 Unknown Hi story Pamoate] metFORMIN [Glucophage] 500 mg PO BID 08/05/21 08/05/21 Unknown History Active Meds: Active Medications Albuterol (Albuterol 2.5 Mg/3 Ml Nebu) 2.5 mg IH Q4HRT PRN PRN Reason: Shortness Of Breath Arformoterol Tartrate (Arformoterol 15 Mcg/2 Ml Nebu) 15 mcg IH Q12HRT [facility] Last Admin: 08/05/21 20:52 Dose: 15 mcg Budesonide (Budesonide 0.5 Mg/2 Ml Nebu) 0.5 mg IH Q12HRT [facility] Last Admin: 08/05/21 20:52 Dose: 0.5 mg Carbamazepine (Carbamazepine 200 Mg Tab) 200 mg PO BID [facility] Last Admin: 08/06/21 09:17 Dose: 200 mg Dextrose (Dextrose 50% In Water (25gm) 50 Ml Syringe) 50 ml IV Q30MIN PRN; Protocol PRN Reason: Hypoglycemia Furosemide (Furosemide 20 Mg Tab) 20 mg PO QDAY [facility] Stop: 08/11/21 10:01 Last Admin: 08/06/21 09:15 Dose: Not Given Gabapentin (Gabapentin 300 Mg Cap) 300 mg PO TID [facility] Last Admin: 08/06/21 08:45 Dose: 300 mg Hydroxyzine Pamoate (Hydroxyzine Pamoate 25 Mg Cap) 25 mg PO TID PRN PRN Reason: Anxiety Last Admin: 08/05/21 21:29 Dose: 25 mg Insulin Human Lispro (Insulin Lispro 100 Unit/Ml) 0 unit SUB-Q ACHS [facility]; Protocol Last Admin: 08/06/21 08:32 Dose: Not Given Meclizine HCl (Meclizine 25 Mg Tab) 25 mg PO TID PRN PRN Reason: dizziness Metoprolol Succinate (Metoprolol Succinate Xl 25 Mg Tab) 25 mg PO QDAY [facility] Last Admin: 08/06/21 09:16 Dose: Not Given Montelukast Sodium (Montelukast 10 Mg Tab) 10 mg PO DAILY [facility] Last Admin: 08/06/21 09:17 Dose: 10 mg Quetiapine Fumarate (Quetiapine 25 Mg Tab) 25 mg PO BID [facility] Last Admin: 08/06/21 09:17 Dose: 25 mg Triamterene/Hydrochlorothiazide (Triamter/Hctz 37.5-25 Mg Tab) 1 each PO DAILY [facility] Last Admin: 08/06/21 09:15 Dose: 1 each Results - Results Labs/Vitals: Laboratory Last Values Sodium 142 mmol/L (137-145) 08/05/21 11:05 Potassium 4.2 mmol/L (3.6-5.0) 08/05/21 11:05 Chloride 103.9 mmol/L (98-107) 08/05/21 11:05 Carbon Dioxide 27 mmol/L (22-30) 08/05/21 11:05 Anion Gap 15 mmol/L 08/05/21 11:05 BUN 7 mg/dL (7-17) 08/05/21 11:05 Creatinine 0.6 mg/dL (0.6-1.2) 08/05/21 11:05 Estimated GFR > 60 ml/min 08/05/21 11:05 BUN/Creatinine Ratio 12 % 08/05/21 11:05 Glucose 116 mg/dL (65-100) H 08/05/21 11:05 POC Glucose 122 mg/dL (70-105) H 08/05/21 06:16 Hemoglobin A1c 7.0 % (4-6) H 08/05/21 11:05 Calcium 9.8 mg/dL (8.4-10.2) 08/05/21 11:05 Total Bilirubin 0.50 mg/dL (0.1-1.2) 08/05/21 11:05 AST 11 units/L (5-40) 08/05/21 11:05 ALT 16 units/L (7-56) 08/05/21 11:05 Alkaline Phosphatase 105 units/L (35-129) 08/05/21 11:05 Total Protein 6.8 g/dL (6.3-8.2) 08/05/21 11:05 Albumin 3.8 g/dL (3.9-5) L 08/05/21 11:05 Albumin/Globulin Ratio 1.3 % 08/05/21 11:05 Triglycerides 113 mg/dL (2-149) 08/05/21 11:05 Cholesterol 144 mg/dL (50-199) 08/05/21 11:05 LDL Cholesterol Direct 92 mg/dL (50-130) 08/05/21 11:05 HDL Cholesterol 37 mg/dL (40-59) L 08/05/21 11:05 Cholesterol/HDL Ratio 3.89 % 08/05/21 11:05 TSH 1.260 mlU/mL (0.270-4.200) 08/05/21 11:05 Last Vital Signs Temp 98.7 F 08/06/21 07:58 Pulse 62 08/06/21 07:58 Resp 18 08/06/21 07:58 BP 103/50 08/06/21 07:58 Pulse Ox 93 08/06/21 07:58
[2021-08-07] MEDS: INSULIN LISPRO 100 UNIT/ML SUB-Q SCH ×4 (07:30→21:33)
--- NOTE | 2021-08-07 08:51 | Progress Note ---
Assessment and Plan Assessment and plan: #Suicidal ideation #Essential hypertension #Type 2 diabetes #History of congestive heart failure, unspecified ejection fraction #Kzxqb-[id number]-Taiuy syndrome status post ablation #Chronic vertigo #Asthma/COPD #History of nephrolithiasis #Morbid obesity +15-minute behavioral health counseling given on healthy diet and exercise. #Nicotine abuse +15-minute nicotine/smoking cessation counseling given which included quitting strategies and local community resources. #Advance care planning Disease education conducted, care plan discussed, diagnoses discussed, prognosis discussed, patient is full code, patient acknowledges understanding and agree with care plan, +30 minutes. Plan -Psychiatric medication management per inpatient psych service -Monitor blood pressure daily, vital signs reviewed -Accu-Cheks ACHS - CBC, CMP, lipid panel, TSH, hemoglobin A1c reviewed. -Resume home medications: Metoprolol XL 25 mg p.o. daily, triamtereneHCTZ 37.5- 25 mg p.o. daily, Lasix 20 mg p.o. daily, montelukast, gabapentin, meclizine Hold home diabetes medication: Metformin and glipizide -Agree with Pulmicort, Brovana, albuterol for COPD management -Sliding scale coverage -Monitor QTC while on psychiatric medications IMS will continue to follow while patient is in hospital. History Interval history: No acute complaints. Patient in no apparent distress. Hospitalist Physical - Physical exam Narrative exam: Physical Exam: VITAL SIGNS: Reviewed. GENERAL: The patient appears normally developed, Vital signs as documented. Elevated BMI greater than 50 HEAD: No signs of head trauma. EYES: Pupils are equal. Extraocular motions intact. EARS: Hearing grossly intact. MOUTH: Oropharynx is normal. NECK: No adenopathy, no JVD. CHEST: Chest with clear breath sounds bilaterally. No wheezes, rales, or rhonchi. CARDIAC: Regular rate and rhythm. S1 and S2, without murmurs, gallops, or rubs. VASCULAR: No Edema. Peripheral pulses normal and equal in all extremities. ABDOMEN: Soft, non tender and non distended. No rebound or guarding, and no masses palpated. Bowel Sounds normal. MUSCULOSKELETAL: Good range of motion of all major joints. Extremities without clubbing, cyanosis or edema. NEUROLOGIC EXAM: Alert and oriented x 4. no focal sensory or strength deficits. PSYCHIATRIC: Depressed SKIN: detail exam as documented in skin assessment - Constitutional Vitals: Temp Pulse Resp BP Pulse Ox 97.5 F L 64 18 100/58 93 08/07/21 07:55 08/07/21 07:55 08/07/21 07:55 08/07/21 07:55 08/07/21 07:55 Results - Labs CBC & Chem 7: 08/05/21 11:05 Labs: Laboratory Last Values Sodium 142 mmol/L (137-145) 08/05/21 11:05 Potassium 4.2 mmol/L (3.6-5.0) 08/05/21 11:05 Chloride 103.9 mmol/L (98-107) 08/05/21 11:05 Carbon Dioxide 27 mmol/L (22-30) 08/05/21 11:05 Anion Gap 15 mmol/L 08/05/21 11:05 BUN 7 mg/dL (7-17) 08/05/21 11:05 Creatinine 0.6 mg/dL (0.6-1.2) 08/05/21 11:05 Estimated GFR > 60 ml/min 08/05/21 11:05 BUN/Creatinine Ratio 12 % 08/05/21 11:05 Glucose 116 mg/dL (65-100) H 08/05/21 11:05 POC Glucose 120 mg/dL (70-105) H 08/07/21 06:31 Hemoglobin A1c 7.0 % (4-6) H 08/05/21 11:05 Calcium 9.8 mg/dL (8.4-10.2) 08/05/21 11:05 Total Bilirubin 0.50 mg/dL (0.1-1.2) 08/05/21 11:05 AST 11 units/L (5-40) 08/05/21 11:05 ALT 16 units/L (7-56) 08/05/21 11:05 Alkaline Phosphatase 105 units/L (35-129) 08/05/21 11:05 Total Protein 6.8 g/dL (6.3-8.2) 08/05/21 11:05 Albumin 3.8 g/dL (3.9-5) L 08/05/21 11:05 Albumin/Globulin Ratio 1.3 % 08/05/21 11:05 Triglycerides 113 mg/dL (2-149) 08/05/21 11:05 Cholesterol 144 mg/dL (50-199) 08/05/21 11:05 LDL Cholesterol Direct 92 mg/dL (50-130) 08/05/21 11:05 HDL Cholesterol 37 mg/dL (40-59) L 08/05/21 11:05 Cholesterol/HDL Ratio 3.89 % 08/05/21 11:05 TSH 1.260 mlU/mL (0.270-4.200) 08/05/21 11:05 [place]/IV: Voiding Method Toilet Active Medications - Current Medications Current Medications: Generic Name Dose Route Start Last Admin Trade Name Freq PRN Reason Stop Dose Admin Albuterol 2.5 mg 08/05/21 12:00 Albuterol 2.5 Mg/3 Ml Nebu IH Q4HRT PRN Shortness Of Breath Arformoterol Tartrate 15 mcg 08/05/21 11:00 08/06/21 20:39 Arformoterol 15 Mcg/2 Ml Nebu IH 15 mcg Q12HRT [facility] Administration Budesonide 0.5 mg 08/05/21 11:00 08/06/21 20:38 Budesonide 0.5 Mg/2 Ml Nebu IH 0.5 mg Q12HRT [facility] Administration Carbamazepine 200 mg 08/05/21 10:00 08/06/21 21:17 Carbamazepine 200 Mg Tab PO 200 mg BID [facility] Administration Dextrose 50 ml 08/05/21 15:56 Dextrose 50% In Water (25gm) 50 Ml Syringe IV Q30MIN PRN Hypoglycemia Protocol Furosemide 20 mg 08/05/21 10:00 08/06/21 09:15 Furosemide 20 Mg Tab PO 08/11/21 10:01 Not Given QDAY [facility] Gabapentin 300 mg 08/05/21 14:00 08/06/21 20:49 Gabapentin 300 Mg Cap PO 300 mg TID [facility] Administration Hydroxyzine Pamoate 25 mg 08/05/21 10:00 08/05/21 21:29 Hydroxyzine Pamoate 25 Mg Cap PO 25 mg TID PRN Administration Anxiety Insulin Human Lispro 0 unit 08/05/21 16:30 08/07/21 07:30 Insulin Lispro 100 Unit/Ml SUB-Q Not Given ACHS [facility] Protocol Meclizine HCl 25 mg 08/05/21 10:00 Meclizine 25 Mg Tab PO TID PRN dizziness Metoprolol Succinate 25 mg 08/05/21 16:00 08/06/21 09:16 Metoprolol Succinate Xl 25 Mg Tab PO Not Given QDAY [facility] Montelukast Sodium 10 mg 08/05/21 16:00 08/06/21 09:17 Montelukast 10 Mg Tab PO 10 mg DAILY [facility] Administration Quetiapine Fumarate 25 mg 08/05/21 10:00 08/06/21 21:17 Quetiapine 25 Mg Tab PO 25 mg BID [facility] Administration Triamterene/Hydrochlorothiazide 1 each 08/06/21 10:00 08/06/21 09:15 Triamter/Hctz 37.5-25 Mg Tab PO 1 each DAILY [facility] Administration
[2021-08-07] MEDS: FUROSEMIDE 20 MG TAB PO SCH (09:22)
[2021-08-07] MEDS: GABAPENTIN 300 MG CAP PO SCH ×3 (09:23→21:32)
[2021-08-07] MEDS: QUEtiapine 25 MG TAB PO SCH ×2 (09:23→21:32)
[2021-08-07] MEDS: MONTELUKAST 10 MG TAB PO SCH (09:23)
[2021-08-07] MEDS: carBAMazepine 200 MG TAB PO SCH ×2 (09:23→21:32)
--- NOTE | 2021-08-07 09:24 | Progress Note ---
Subjective Date of service: 08/07/21 Subjective Comment: 08/07/21:The patient was seen this morning. She states she is feeling better. She continues to endorse depression rates as 6/10. She denies any current suicidal/homicidal ideation. She admits to having auditory hallucinations " God bless your heart 08/06/21: The patient was seen this morning. She continues to endorse depression rates as 7/10. She denies any current suicidal/homicidal ideation. She admits to having auditory hallucinations " God bless your heart." REVIEW OF SYSTEMS Constitutional: Negative for weight loss ENT: Negative for stridor Respiratory: Negative for cough or hemoptysis All other systems reviewed and are negative MENTAL STATUS EXAMINATION General Appearance and Behavior: Age appropriate, good hygiene, wearing appropriate clothes, good eye contact, calm, cooperative Cooperation: Participating/engaged, but Guarded Psychomotor Behavior: Psychomotor normal Mood:Depressed Affect and affective range: congruent Thought Process: Goal directed Thought Content: Reality oriented Speech: normal tone and pace Suicidal Ideation: Denies Homicidal Ideation: Denies Hallucinations: Auditory Delusions: None elicited Impulse Control: Limited Insight and Judgment: Limited insight and judgment Memory: Limited Attention: attentive Orientation: Alert, oriented Assessment and Plan Schizoaffective disorder Treatment Plan Patient admitted for inpatient psychiatric evaluation, medication adjustment and close monitoring The patient's behavior, mood, sleep and appetite will be closely monitored. Patient enrolled in individual and group therapeutic sessions and encouraged to attend. Patient provided with a safe and structured environment. Patient's physical health needs will be addressed by the Hospitalist. Hospitalist Consulted Labs including CBC, CMP, Lipid profile and Hemoglobin A1C levels ordered for baseline reference Social Assessment will be completed and the Imaging Services Director will work with patient and family to ensure a suitable and safe disposition Medication adjustment will be made as clinically indicated continue home meds Usual Wellness Restorationist/Preservation: - Start Trazodone 50 mg po QHS & 50 mg po QHS PRN between 10 PM & 2 AM for insomnia - Start Melatonin 5 mg po QHS to promote circadian rhythm The patient agreed on the treatment plan, understood the risk, benefit, alternative treatment, potential consequence of no treatment, and gave informed consent. Estimated days: 6 Post hospital care: primary care provider, psychiatric provider Case staffed with Dr. Solo Medications and Allergies Medications and Allergies Allergies Allergy/AdvReac Type Severity Reaction Status Date / Time No Known Drug Allergies Allergy Unknown Verified 11/21/20 22:55 Home Medications Medication Instructions Recorded Confirmed Last Taken Type Duloxetine HCl [Drizalma Sprinkle] 60 mg PO DAILY 03/09/20 12/26/20 Unknown History [place] Carbonate [Eskalith] 300 mg PO BID 03/09/20 08/05/21 Unknown History Metoprolol Xl [Metoprolol 25 mg PO QDAY 03/09/20 12/26/20 Unknown History SUCCINATE ER TAB] Paliperidone Palmitate [Invega 156 mg IM QMONTH 03/09/20 12/26/20 Unknown History Sustenna] Albuterol Sulfate [Proventil Hfa] 8.5 gm IH Q4HR PRN 12/26/20 12/26/20 Unknown History Fluticasone Propion/Salmeterol 1 each IH DAILY 12/26/20 08/05/21 Unknown History [Fluticasone-Salmeterol 250-50] Meclizine HCl [Motion Sickness] 25 mg PO TID PRN 12/26/20 08/05/21 Unknown History Montelukast [Singulair] 10 mg PO DAILY 12/26/20 12/26/20 Unknown History Triamterene/Hydrochlorothiazid 1 tab PO DAILY 12/26/20 12/26/20 Unknown History [Triamterene-Hctz 37.5-25 mg Tb] Venlafaxine HCl [Venlafaxine HCl 150 mg PO DAILY 12/26/20 12/26/20 Unknown History ER] glipiZIDE [Glucotrol] 10 mg PO DAILY 12/26/20 12/26/20 Unknown History hydrOXYzine PAMOATE [Vistaril] 25 mg PO DAILY 12/26/20 12/26/20 Unknown History metFORMIN [Glucophage] 500 mg PO BID 12/26/20 12/26/20 Unknown History risperiDONE [RisperDAL] 1 mg PO BID 12/26/20 12/26/20 Unknown History Furosemide [Lasix TAB] 10 mg PO QDAY #30 01/01/21 Unknown Rx Mirtazapine [Remeron] 30 mg PO HS #30 01/01/21 Unknown Rx Nicotine [Habitrol] 21 mg TD QDAY #30 patch 01/01/21 Unknown Rx Potassium Chloride [K-Dur] 20 meq PO BID #60 01/01/21 Unknown Rx risperiDONE [RisperDAL] 1 mg PO BID #60 tablet 01/01/21 Unknown Rx traZODone [Desyrel] 100 mg PO QHS #30 01/01/21 Unknown Rx Gabapentin 300 mg PO TID 08/05/21 08/05/21 Unknown History [place] Carbonate 300 mg PO BID 08/05/21 08/05/21 Unknown History Meclizine [Antivert] 25 mg PO TID PRN 08/05/21 08/05/21 Unknown History OLANZapine [Zyprexa] 20 mg PO HS 08/05/21 08/05/21 Unknown History Quetiapine Fumarate [SEROquel] 50 mg PO HS 08/05/21 Unknown History hydrOXYzine pamoate [Hydroxyzine 1 cap PO TID PRN 08/05/21 08/05/21 Unknown History Pamoate] metFORMIN [Glucophage] 500 mg PO BID 08/05/21 08/05/21 Unknown History Active Meds: Active Medications Albuterol (Albuterol 2.5 Mg/3 Ml Nebu) 2.5 mg IH Q4HRT PRN PRN Reason: Shortness Of Breath Arformoterol Tartrate (Arformoterol 15 Mcg/2 Ml Nebu) 15 mcg IH Q12HRT [facility] Last Admin: 08/06/21 20:39 Dose: 15 mcg Budesonide (Budesonide 0.5 Mg/2 Ml Nebu) 0.5 mg IH Q12HRT [facility] Last Admin: 08/06/21 20:38 Dose: 0.5 mg Carbamazepine (Carbamazepine 200 Mg Tab) 200 mg PO BID [facility] Last Admin: 08/06/21 21:17 Dose: 200 mg Dextrose (Dextrose 50% In Water (25gm) 50 Ml Syringe) 50 ml IV Q30MIN PRN; Protocol PRN Reason: Hypoglycemia Furosemide (Furosemide 20 Mg Tab) 20 mg PO QDAY [facility] Stop: 08/11/21 10:01 Last Admin: 08/06/21 09:15 Dose: Not Given Gabapentin (Gabapentin 300 Mg Cap) 300 mg PO TID [facility] Last Admin: 08/06/21 20:49 Dose: 300 mg Hydroxyzine Pamoate (Hydroxyzine Pamoate 25 Mg Cap) 25 mg PO TID PRN PRN Reason: Anxiety Last Admin: 08/05/21 21:29 Dose: 25 mg Insulin Human Lispro (Insulin Lispro 100 Unit/Ml) 0 unit SUB-Q ACHS [facility]; Protoc ol Last Admin: 08/07/21 07:30 Dose: Not Given Meclizine HCl (Meclizine 25 Mg Tab) 25 mg PO TID PRN PRN Reason: dizziness Metoprolol Succinate (Metoprolol Succinate Xl 25 Mg Tab) 25 mg PO QDAY [facility] Last Admin: 08/06/21 09:16 Dose: Not Given Montelukast Sodium (Montelukast 10 Mg Tab) 10 mg PO DAILY [facility] Last Admin: 08/06/21 09:17 Dose: 10 mg Quetiapine Fumarate (Quetiapine 25 Mg Tab) 25 mg PO BID [facility] Last Admin: 08/06/21 21:17 Dose: 25 mg Triamterene/Hydrochlorothiazide (Triamter/Hctz 37.5-25 Mg Tab) 1 each PO DAILY [facility] Last Admin: 08/06/21 09:15 Dose: 1 each Results - Results Labs/Vitals: Laboratory Last Values Sodium 142 mmol/L (137-145) 08/05/21 11:05 Potassium 4.2 mmol/L (3.6-5.0) 08/05/21 11:05 Chloride 103.9 mmol/L (98-107) 08/05/21 11:05 Carbon Dioxide 27 mmol/L (22-30) 08/05/21 11:05 Anion Gap 15 mmol/L 08/05/21 11:05 BUN 7 mg/dL (7-17) 08/05/21 11:05 Creatinine 0.6 mg/dL (0.6-1.2) 08/05/21 11:05 Estimated GFR > 60 ml/min 08/05/21 11:05 BUN/Creatinine Ratio 12 % 08/05/21 11:05 Glucose 116 mg/dL (65-100) H 08/05/21 11:05 POC Glucose 120 mg/dL (70-105) H 08/07/21 06:31 Hemoglobin A1c 7.0 % (4-6) H 08/05/21 11:05 Calcium 9.8 mg/dL (8.4-10.2) 08/05/21 11:05 Total Bilirubin 0.50 mg/dL (0.1-1.2) 08/05/21 11:05 AST 11 units/L (5-40) 08/05/21 11:05 ALT 16 units/L (7-56) 08/05/21 11:05 Alkaline Phosphatase 105 units/L (35-129) 08/05/21 11:05 Total Protein 6.8 g/dL (6.3-8.2) 08/05/21 11:05 Albumin 3.8 g/dL (3.9-5) L 08/05/21 11:05 Albumin/Globulin Ratio 1.3 % 08/05/21 11:05 Triglycerides 113 mg/dL (2-149) 08/05/21 11:05 Cholesterol 144 mg/dL (50-199) 08/05/21 11:05 LDL Cholesterol Direct 92 mg/dL (50-130) 08/05/21 11:05 HDL Cholesterol 37 mg/dL (40-59) L 08/05/21 11:05 Cholesterol/HDL Ratio 3.89 % 08/05/21 11:05 TSH 1.260 mlU/mL (0.270-4.200) 08/05/21 11:05 Last Vital Signs Temp 97.5 F L 08/07/21 07:55 Pulse 64 08/07/21 07:55 Resp 18 08/07/21 07:55 BP 100/58 08/07/21 07:55 Pulse Ox 93 08/07/21 07:55
[2021-08-07] MEDS: METOPROLOL SUCCINATE XL 25 MG TAB PO SCH (09:27)
[2021-08-07] MEDS: TRIAMTER/HCTZ 37.5-25 MG TAB PO SCH (09:33)
[2021-08-07] MEDS: BUDESONIDE 0.5 MG/2 ML NEBU IH SCH (13:06)
[2021-08-07] MEDS: ARFORMOTEROL 15 MCG/2 ML NEBU IH SCH (13:06)
[2021-08-07] MEDS: hydrOXYzine PAMOATE 25 MG CAP PO PRN (21:32)
[2021-08-08] MEDS: ARFORMOTEROL 15 MCG/2 ML NEBU IH SCH ×2 (01:41→09:30)
[2021-08-08] MEDS: BUDESONIDE 0.5 MG/2 ML NEBU IH SCH ×2 (01:41→09:30)
[2021-08-08] MEDS: INSULIN LISPRO 100 UNIT/ML SUB-Q SCH ×2 (08:15→11:18)
--- NOTE | 2021-08-08 08:29 | Progress Note ---
Assessment and Plan Assessment and plan: #Suicidal ideation #Essential hypertension #Type 2 diabetes #History of congestive heart failure, unspecified ejection fraction #Zgnef-Baemkenaa-Atnal syndrome status post ablation #Chronic vertigo #Asthma/COPD #History of nephrolithiasis #Morbid obesity +15-minute behavioral health counseling given on healthy diet and exercise. #Nicotine abuse +15-minute nicotine/smoking cessation counseling given which included quitting strategies and local community resources. #Advance care planning Disease education conducted, care plan discussed, diagnoses discussed, prognosis discussed, patient is full code, patient acknowledges understanding and agree with care plan, +30 minutes. Plan -Psychiatric medication management per inpatient psych service -Monitor blood pressure daily, vital signs reviewed -Accu-Cheks ACHS - CBC, CMP, lipid panel, TSH, hemoglobin A1c reviewed. -Resume home medications: Metoprolol XL 25 mg p.o. daily, triamtereneHCTZ 37.5- 25 mg p.o. daily, Lasix 20 mg p.o. daily, montelukast, gabapentin, meclizine Hold home diabetes medication: Metformin and glipizide -Agree with Pulmicort, Brovana, albuterol for COPD management -Sliding scale coverage -Monitor QTC while on psychiatric medications IMS will continue to follow while patient is in hospital. History Interval history: No acute complaints. Patient in no apparent distress. Hospitalist Physical - Physical exam Narrative exam: Physical Exam: VITAL SIGNS: Reviewed. GENERAL: The patient appears normally developed, Vital signs as documented. Elevated BMI greater than 50 HEAD: No signs of head trauma. EYES: Pupils are equal. Extraocular motions intact. EARS: Hearing grossly intact. MOUTH: Oropharynx is normal. NECK: No adenopathy, no JVD. CHEST: Chest with clear breath sounds bilaterally. No wheezes, rales, or rhonchi. CARDIAC: Regular rate and rhythm. S1 and S2, without murmurs, gallops, or rubs. VASCULAR: No Edema. Peripheral pulses normal and equal in all extremities. ABDOMEN: Soft, non tender and non distended. No rebound or guarding, and no masses palpated. Bowel Sounds normal. MUSCULOSKELETAL: Good range of motion of all major joints. Extremities without clubbing, cyanosis or edema. NEUROLOGIC EXAM: Alert and oriented x 4. no focal sensory or strength deficits. PSYCHIATRIC: Depressed SKIN: detail exam as documented in skin assessment - Constitutional Vitals: Temp Pulse Resp BP Pulse Ox 98.6 F 63 20 132/66 95 08/07/21 20:00 08/07/21 20:00 08/07/21 20:00 08/07/21 20:00 08/07/21 20:00 Results - Labs CBC & Chem 7: 08/05/21 11:05 Labs: Laboratory Last Values Sodium 142 mmol/L (137-145) 08/05/21 11:05 Potassium 4.2 mmol/L (3.6-5.0) 08/05/21 11:05 Chloride 103.9 mmol/L (98-107) 08/05/21 11:05 Carbon Dioxide 27 mmol/L (22-30) 08/05/21 11:05 Anion Gap 15 mmol/L 08/05/21 11:05 BUN 7 mg/dL (7-17) 08/05/21 11:05 Creatinine 0.6 mg/dL (0.6-1.2) 08/05/21 11:05 Estimated GFR > 60 ml/min 08/05/21 11:05 BUN/Creatinine Ratio 12 % 08/05/21 11:05 Glucose 116 mg/dL (65-100) H 08/05/21 11:05 POC Glucose 157 mg/dL (70-105) H 08/07/21 19:25 Hemoglobin A1c 7.0 % (4-6) H 08/05/21 11:05 Calcium 9.8 mg/dL (8.4-10.2) 08/05/21 11:05 Total Bilirubin 0.50 mg/dL (0.1-1.2) 08/05/21 11:05 AST 11 units/L (5-40) 08/05/21 11:05 ALT 16 units/L (7-56) 08/05/21 11:05 Alkaline Phosphatase 105 units/L (35-129) 08/05/21 11:05 Total Protein 6.8 g/dL (6.3-8.2) 08/05/21 11:05 Albumin 3.8 g/dL (3.9-5) L 08/05/21 11:05 Albumin/Globulin Ratio 1.3 % 08/05/21 11:05 Triglycerides 113 mg/dL (2-149) 08/05/21 11:05 Cholesterol 144 mg/dL (50-199) 08/05/21 11:05 LDL Cholesterol Direct 92 mg/dL (50-130) 08/05/21 11:05 HDL Cholesterol 37 mg/dL (40-59) L 08/05/21 11:05 Cholesterol/HDL Ratio 3.89 % 08/05/21 11:05 TSH 1.260 mlU/mL (0.270-4.200) 08/05/21 11:05 [place]/IV: Voiding Method Toilet Active Medications - Current Medications Current Medications: Generic Name Dose Route Start Last Admin Trade Name Freq PRN Reason Stop Dose Admin Albuterol 2.5 mg 08/05/21 12:00 Albuterol 2.5 Mg/3 Ml Nebu IH Q4HRT PRN Shortness Of Breath Arformoterol Tartrate 15 mcg 08/05/21 11:00 08/08/21 01:41 Arformoterol 15 Mcg/2 Ml Nebu IH Not Given Q12HRT SHELBY Budesonide 0.5 mg 08/05/21 11:00 08/08/21 01:41 Budesonide 0.5 Mg/2 Ml Nebu IH Not Given Q12HRT SHELBY Carbamazepine 200 mg 08/05/21 10:00 08/07/21 21:32 Carbamazepine 200 Mg Tab PO 200 mg BID SHELBY Administration Dextrose 50 ml 08/05/21 15:56 Dextrose 50% In Water (25gm) 50 Ml Syringe IV Q30MIN PRN Hypoglycemia Protocol Furosemide 20 mg 08/05/21 10:00 08/07/21 09:22 Furosemide 20 Mg Tab PO 08/11/21 10:01 20 mg QDAY SHELBY Administration Gabapentin 300 mg 08/05/21 14:00 08/07/21 21:32 Gabapentin 300 Mg Cap PO 300 mg TID SHELBY Administration Hydroxyzine Pamoate 25 mg 08/05/21 10:00 08/07/21 21:32 Hydroxyzine Pamoate 25 Mg Cap PO 25 mg TID PRN Administration Anxiety Insulin Human Lispro 0 unit 08/05/21 16:30 08/08/21 08:15 Insulin Lispro 100 Unit/Ml SUB-Q Not Given ACHS SHELBY Protocol Meclizine HCl 25 mg 08/05/21 10:00 08/07/21 09:26 Meclizine 25 Mg Tab PO 25 mg TID PRN Administration dizziness Metoprolol Succinate 25 mg 08/05/21 16:00 08/07/21 09:27 Metoprolol Succinate Xl 25 Mg Tab PO Not Given QDAY SHELBY Montelukast Sodium 10 mg 08/05/21 16:00 08/07/21 09:23 Montelukast 10 Mg Tab PO 10 mg DAILY SHELBY Administration Quetiapine Fumarate 25 mg 08/05/21 10:00 08/07/21 21:32 Quetiapine 25 Mg Tab PO 25 mg BID SHELBY Administration Triamterene/Hydrochlorothiazide 1 each 08/06/21 10:00 08/07/21 09:33 Triamter/Hctz 37.5-25 Mg Tab PO Not Given DAILY SHELBY
[2021-08-08 09:30] VITALS: BP 102/50
[2021-08-08] MEDS: QUEtiapine 25 MG TAB PO SCH (09:31)
[2021-08-08] MEDS: GABAPENTIN 300 MG CAP PO SCH ×2 (09:31→13:40)
[2021-08-08] MEDS: TRIAMTER/HCTZ 37.5-25 MG TAB PO SCH (09:31)
[2021-08-08] MEDS: METOPROLOL SUCCINATE XL 25 MG TAB PO SCH (09:31)
[2021-08-08] MEDS: FUROSEMIDE 20 MG TAB PO SCH (09:31)
[2021-08-08] MEDS: MONTELUKAST 10 MG TAB PO SCH (09:31)
[2021-08-08] MEDS: carBAMazepine 200 MG TAB PO SCH (09:32)
--- NOTE | 2021-08-08 10:04 | Discharge Summary ---
Providers - Providers Date of Admission: 08/04/21 22:08 Date of discharge: 08/08/21 Attending physician: KIRT FUNG MD 08/04/21 20:28 Consult to Physician [CONS] Routine Comment: Consulting Provider: NOAH MARIE Physician Instructions: Reason For Exam: management of medical problem Primary care physician: [facility] Hospitalization Reason for admission: depression Admitting Diagnosis: F25.9 - SCHIZOAFFECTIVE DISORDER, UNSPECIFIED Condition: Stable Hospital course: The patient was provided inpatient psychiatric treatment with safe and supportive environment, group/individual therapy, psychiatric medication, medication adjustment, adverse effect monitor, medical evaluation, medical treatment, social service assessment, social support meeting, placement assessment and psycho-education. The patients mood, cognition, behavior, motivation, compliance to treatment and appreciation on family/social support are improved and stabilized. At the time of discharge, the patient had no suicidal ideas, no homicidal ideas, no aggressive thoughts, no endangering behavior and no debilitating adverse effects. The patient agreed on the treatment plan, understood the risk, benefit, alternative treatment, potential consequence of no treatment, and gave informed consent. Disposition: 01 HOME / SELF CARE / HOMELESS Time spent for discharge: 35 Allergies/Adverse Reactions: Allergies No Known Drug Allergies Allergy (Verified 03/09/20 22:55) Unknown Vital Signs: Last Vital Signs Temp 98.4 F 08/08/21 08:53 Pulse 59 L 08/08/21 09:31 Resp 18 08/08/21 08:53 BP 102/50 08/08/21 09:31 Pulse Ox 94 08/08/21 08:53 Last Lab: Laboratory Last Values Sodium 142 mmol/L (137-145) 08/05/21 11:05 Potassium 4.2 mmol/L (3.6-5.0) 08/05/21 11:05 Chloride 103.9 mmol/L (98-107) 08/05/21 11:05 Carbon Dioxide 27 mmol/L (22-30) 08/05/21 11:05 Anion Gap 15 mmol/L 08/05/21 11:05 BUN 7 mg/dL (7-17) 08/05/21 11:05 Creatinine 0.6 mg/dL (0.6-1.2) 08/05/21 11:05 Estimated GFR > 60 ml/min 08/05/21 11:05 BUN/Creatinine Ratio 12 % 08/05/21 11:05 Glucose 116 mg/dL (65-100) H 08/05/21 11:05 POC Glucose 157 mg/dL (70-105) H 08/07/21 19:25 Hemoglobin A1c 7.0 % (4-6) H 08/05/21 11:05 Calcium 9.8 mg/dL (8.4-10.2) 08/05/21 11:05 Total Bilirubin 0.50 mg/dL (0.1-1.2) 08/05/21 11:05 AST 11 units/L (5-40) 08/05/21 11:05 ALT 16 units/L (7-56) 08/05/21 11:05 Alkaline Phosphatase 105 units/L (35-129) 08/05/21 11:05 Total Protein 6.8 g/dL (6.3-8.2) 08/05/21 11:05 Albumin 3.8 g/dL (3.9-5) L 08/05/21 11:05 Albumin/Globulin Ratio 1.3 % 08/05/21 11:05 Triglycerides 113 mg/dL (2-149) 08/05/21 11:05 Cholesterol 144 mg/dL (50-199) 08/05/21 11:05 LDL Cholesterol Direct 92 mg/dL (50-130) 08/05/21 11:05 HDL Cholesterol 37 mg/dL (40-59) L 08/05/21 11:05 Cholesterol/HDL Ratio 3.89 % 08/05/21 11:05 TSH 1.260 mlU/mL (0.270-4.200) 08/05/21 11:05 Core Measure Documentation - Palliative Care Palliative Care/ Comfort Measures: Not Applicable - Core Measures Any of the following diagnoses?: none Exam - Constitutional Vitals: Temp Pulse Resp BP Pulse Ox 98.4 F 59 L 18 102/50 94 08/08/21 08:53 08/08/21 09:31 08/08/21 08:53 08/08/21 09:31 08/08/21 08:53 General appearance: Present: no acute distress - EENT Eyes: Present: PERRL, EOM intact ENT: hearing intact, clear oral mucosa - Neck Neck: Present: supple, normal ROM - Respiratory Respiratory effort: normal Plan Activity: advance as tolerated Weight Bearing Status: Weight Bear as Tolerated Care Plan Goals: Maintain good and stable mental health Plan of Treatment: The patient should be compliant with medications, not to use drugs and not to drink alcohol.The patient understands that if suicidal ideas, homicidal ideas, or any endangering thoughts/behavior arise, they should immediately seek for emergent assistance including but not limited to crisis hot line and emergency room. Follow up with outpatient Psychiatrist and PCP within 7 - 14 days of discharge. Assessment: Schizoaffective Disorder Follow up with: PRIMARY CARE, [Primary Care Provider] - 7 Days Prescriptions: traZODone [Desyrel] 100 mg PO QHS #30 Duloxetine HCl [Drizalma Sprinkle] 60 mg PO DAILY #30 Nicotine [Habitrol] 21 mg TD QDAY #30 patch Mirtazapine [Remeron] 30 mg PO HS #30 QUEtiapine [SEROquel] 25 mg PO BID #60 tablet hydrOXYzine PAMOATE [Vistaril] 25 mg PO TID PRN #90 capsule PRN Reason: Anxiety
== END 2021-08-08 15:50 | disposition home or self-care (01) | DRG 885 ==
LOC: UNDOADMIN 12:50 → 3A 12:50 → 5A 22:08
PROVIDERS: ADMIT Psychiatry & Neurology Psychiatry; ATTEND Psychiatry & Neurology Psychiatry
DX: F25.9 Schizoaffective disorder, unspecified (principal); I50.9 Heart failure, unspecified; I11.0 Hypertensive heart disease with heart failure; E11.9 Type 2 diabetes mellitus without complications; J44.9 Chronic obstructive pulmonary disease, unspecified; E66.01 Morbid (severe) obesity due to excess calories; Z90.49 Acquired absence of other specified parts of digestive tract
CPT/HCPCS: 36415; 80053; 80061; 82962; 83036; 84443; 94640; G0378; Q9967; J1815